=== PATIENT | male | born 1950 | race Caucasian/White ===

== ENCOUNTER 2019-07-05 05:37 | Outpatient (RCR) | payer OTHER, SELFPAY | END 2019-07-14 00:01 | LOC: ONCMED 05:37 | PROVIDERS: Visit Provider Nurse Practitioner | DX: D46.1 Refractory anemia with ring sideroblasts (principal); E83.111 Hemochromatosis due to repeated red blood cell transfusions; I25.10 Atherosclerotic heart disease of native coronary artery without angina pectoris; E78.5 Hyperlipidemia, unspecified; J44.9 Chronic obstructive pulmonary disease, unspecified; F17.210 Nicotine dependence, cigarettes, uncomplicated; G61.81 Chronic inflammatory demyelinating polyneuritis; Z79.82 Long term (current) use of aspirin; Z79.899 Other long term (current) drug therapy; Z79.891 Long term (current) use of opiate analgesic; Z95.5 Presence of coronary angioplasty implant and graft | CPT/HCPCS: 36415; 36430; 80053; 82728; 83540; 83550; 85025 ×2; 86850; 86900; 86901; 86920; 96374; 99214; J1940; J7050; P9040 ×2 ==

== ENCOUNTER 2019-08-02 05:39 | Outpatient (RCR) | payer OTHER, SELFPAY | END 2019-08-14 00:01 | LOC: ONCMED 05:39 | PROVIDERS: Visit Provider Nurse Practitioner | DX: D46.1 Refractory anemia with ring sideroblasts (principal); E83.111 Hemochromatosis due to repeated red blood cell transfusions; I25.10 Atherosclerotic heart disease of native coronary artery without angina pectoris; E78.5 Hyperlipidemia, unspecified; J44.9 Chronic obstructive pulmonary disease, unspecified; G61.81 Chronic inflammatory demyelinating polyneuritis; Z95.5 Presence of coronary angioplasty implant and graft; Z95.1 Presence of aortocoronary bypass graft | CPT/HCPCS: 80053; 82728; 83540; 83550; 85025 ×2; 99214 ==

== ENCOUNTER 2019-08-30 06:38 | Outpatient (RCR) | payer OTHER, SELFPAY ==
[2019-08-30 10:07] LABS: Basophils % 0.8 %; Eosinophils # 0.1 10^3/uL (0.0-0.8); Eosinophils % 3.8 %; Hematocrit 28.2 % (42.0-52.0); Hemoglobin 9.4 g/dL (11.7-16.6); Lymphocytes # 0.9 10^3/uL (0.8-4.8); Lymphocytes % 36.3 %; Mean Corpuscular HGB Conc 33.3 g/dL (30.0-36.0); Mean Corpuscular Hemoglobin 36.2 pg (28.0-34.0); Mean Corpuscular Volume 108.5 fL (80-94); Mean Platelet Volume 12.5 fL (7.4-10.4); Monocytes # 0.2 10^3/uL (0.2-0.9); Monocytes % 6.8 %; Neutrophils # 1.2 10^3/uL (1.8-7.7); Neutrophils % 51.9 %; Nucleated Red Blood Cells % 0 %; Platelet Count 199 10^3/cmm (130-400); White Blood Count 2.4 10^3/uL (4.0-10.0)
[2019-08-30 10:18] LABS: Alanine Aminotransferase 22 U/L (0-41); Albumin Level 4.7 g/dL (3.5-5.2); Alkaline Phosphatase 79 IU/L (40-130); Anion Gap 12.9 (5-19); Aspartate Amino Transferase 40 U/L (0-40); Blood Urea Nitrogen 10 mg/dL (8-23); Calcium 9.5 mg/Dl (8.8-10.2); Carbon Dioxide 28 mmol/L (22-29); Chloride 100 mmol/L (98-107); Globulin 2.3 g/dL (1.3-4.6); Glomerular Filtration Rate 133.6 mL/min (90-130); Glucose 233 mg/dL (74-106); Lactate Dehydrogenase 135 U/L (135-225); Potassium 3.9 mmol/L (3.5-5.1); Sodium 137 mmol/L (136-145); Total Bilirubin 1.7 mg/dL (0.15-1.2)
[2019-08-30 10:37] LABS: Ferritin 1976 ng/mL (30-400)
[2019-08-30 11:09] LABS: Add RBC Morph Yes; Slide Review Slide Review Perform
[2019-08-30 11:10] LABS: Anisocytosis 2+; Microcytosis 1+; Ovalocytes 1+; Poikilocytosis 1+; Tear Drop Cells 1+
[2019-08-30 11:11] LABS: RBC Morph Comp Yes
--- NOTE | 2019-09-02 19:47 | ONC FU_ITS ---
Dr. Coffey Patient Follow-Up Note Patient: Jose Chamberlain Unit #: [id number]: 1950 Dicatated By: Jordan Coffey M.D.Date of Visit:Aug 30, 2019 Onc Med Follow-up/Prog Note Chief Complaint: Myelodysplastic syndrome. History of Present Illness: This is a 69 year-old man with myelodysplastic syndrome (MDS with ring sideroblasts), low risk. He also has hemochromatosis. In 2016 he was diagnosed with hemochromatosis based on elevated iron and ferritin levels. According to the patient's daughter, he was phlebotomized twice for it. I had seen him initially on 02/06/2018 after he had been found to be anemic. The available records included a CBC from 01/11/2018 showing low hemoglobin at 8.3 g with white blood cell count 3300 and platelet count 322,000. Renal function at that time was normal with BUN 9 and creatinine 0.84 mg/dL. The liver enzymes also were normal. The total bilirubin was slightly elevated at 1.6 mg/dL. The serum iron was elevated at 198 mcg/dL with transferrin saturation 97.2%. Ferritin was elevated at 1301.0 ng/mL. His laboratory evaluation in January 2018 included CBC showing hemoglobin 10.5 g with white blood cell count 3000 and platelet count 229,000. The red cell indices were macrocytic. The sedimentation rate was normal at 10 mm/hour. Comprehensive metabolic profile was unremarkable except for mildly elevated total bilirubin at 1.4 mg/dL. LDH was normal at 148 U/L. B12 level was normal at 541 pg/mL. His serum iron was elevated at 219 mcg/dL with transferrin saturation 89.6%. The ferritin was elevated at 1359 ng/mL. 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 At the time, I felt that he probably would require bone marrow aspiration/biopsy, but he had failed to return for follow-up. His repeat laboratory studies done through the [facility] on 08/14/2018 included CBC showing hemoglobin down to 7.6 g with hematocrit 23%. The red cell indices were macrocytic with MCV 113 and MCH 36. The white blood cell count was 3300 and the platelet count was 278,000. The uncorrected reticulocyte count was 2.5%. LDH was normal 158 U/L. A haptoglobin level was requested, but the result was not included. TSH was slightly low at 0.31 mIU/mL. Serum iron studies show transferrin saturation 86.1%. PSA level was 1.00 ng/mL. CEA level was 1.95 ng/mL. I had seen him for a follow-up visit on 08/24/2018, and at that point I did recommend bone marrow aspiration/biopsy. I also began empiric steroid therapy for muscle pain. He underwent bone marrow aspiration/biopsy on 09/01/2018. The marrow was hypercellular, estimated at 100%. 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 There was profound erythroid hyperplasia with associated dyserythropoiesis. The bone marrow differential included 2% blasts. CD34 positive blasts and CD 117 positive precursors were slightly increased estimated at 3% and 5% of the cellularity respectively. Iron stores were only 1+, but numerous ring sideroblasts were present. The FISH panel for MDS was unrevealing, and the standard chromosome analysis was normal. His further evaluation included an erythropoietin level, which was relatively high 143 mIU/mL. His other medical illnesses include coronary artery disease, dyslipidemia, and COPD. 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 He has a history of smoking for more than 40 years, in the range of 1 to 1 1/2 packs of cigarettes daily. INTERIM HISTORY: He was seen for a follow-up visit on 09/18/2018. He had noticed some improvement in his muscle pain with the prednisone, but it was not dramatic. At that point I had requested further evaluation with a [facility] next generation sequencing study. 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 He also was found to be MSI stable with low mutation burden. He was seen for a follow-up visit on 12/20/2018. At that time his hemoglobin was 8.8 g with white blood cell count 2800 and platelet count 276,000. He continued to complain of severe fatigue. With the declining blood counts and performance status, I had recommended a trial of therapy with Revlimid at 10 mg daily on a 21/ day schedule. Within one week of starting the medication, his son called reported that he had developed severe weakness, shortness of breath, and lower extremity edema. There was a precipitous drop in his hemoglobin, to 5.5 g with white blood cell count stable at 3300 and platelet count stable at 210,000. He had no symptoms to suggest acute blood loss. Chest x-ray showed COPD and possible edema, but there was no acute infiltrate. He was given IV Lasix and he began outpatient transfusion of PRBC. His shortness of breath, though, worsened, and he was placed in the hospital on overnight observation to complete the transfusion. He was able to be discharged the following day. He received a total of 3 units of PRBC. His Revlimid was put on hold. I had seen him for a follow-up visit on 01/19/2019. He had improved significantly following the transfusions, though that time he did have symptoms of COPD exacerbation, for which he was given antibiotic coverage with Levaquin. During subsequent follow-up he has remained transfusion dependent, requiring transfusion pretty regularly on a monthly basis. He was most recently transfused on 06/21/2019 after his hemoglobin had dropped back down to 6.8 g. In the July 2019 he began treatment with Jadenu for iron overload, as his ferritin level had increased to over 2000 ng/mL. He is seen for a follow-up visit. He has been feeling okay. He does have limited activity tolerance, but he is still able to do light work. ECOG score is 1. Appetite is not good. He says that he does eat, but his weight is down 5 pounds. He does not have fever or night sweats. He has shortness of breath with activity. He has cough which is sometimes clear and sometimes productive of greenish sputum. He does not complain of chest pain. He has no GI or complaints. He has some component of generalized pain, but he hurts more significantly in his right shoulder and in both legs. He has no focal neurologic symptoms. Medications: Aleve 1 Capsule (of 220 mg) Oral PRN, Aspirin 1 Tablet (of 81 mg) Oral daily, Coreg 0.5 Tablet (of 6.25 mg) Oral daily PRN, Gabapentin 2 Capsule (of 300 mg) Oral at bedtime, HYDROcodone-Acetaminophen 1 - 2 Tablet (of 5-325 mg) Oral q 4 hours, Lasix 1 Tablet (of 20 mg) Oral b.i.d. PRN, Proventil HFA 1 puff(s) (of 108 (90 base) mcg/act) Aerosol, solution Inhalation PRN, raNITIdine HCl 1 Tablet (of 150 mg) Oral b.i.d. PRN, Simvastatin 0.5 Tablet (of 40 mg) Oral daily Allergies: No Known Allergies. Review of Systems: Constitutional - His energy is okay. 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 He does not really have an appetite, but he eats. He also drinks Ensure. His weight is down about 5 pounds. No fever, chills, hot flashes, or night sweats. ECOG score is 1, ENMT - No sinus congestion/drainage. No mouth sores. No sore throat or difficulty swallowing, Hematologic/Lymphatic - No abnormal bruising or bleeding, Respiratory - He has shortness of breath with activity. He has a cough that produces green or clear phlegm. He continues to smoke. No pleuritic pain or hemoptysis, Cardiovascular - No angina pain. No palpitations, Gastrointestinal - No nausea or vomiting. No heartburn or acid reflux. No diarrhea or constipation. No blood in the stool or black stools, Genitourinary (M) - No dysuria or hematuria. No urinary frequency. No urgency or incontinence, Musculoskeletal - He has generalized pain in his muscles and joints, mainly his right shoulder, Integumentary - No skin complications, Neurologic - No headache. He has occasional dizziness. No numbness/paresthesias or other focal neurologic symptoms, Psychiatric - No anxiety or depression. No insomnia. Vital Signs: Performed on Aug 30, 2019 10:45 Height - 68.00 in Weight - 152.6 lbs (HIGH) BSA - 1.82 sq.m BMI - 23.20 Temperature - 97.6 F (LOW) Pulse - 62 /min Respiration - 24 /min BP - 115/53 mm(hg) O2 Sat - 99 % Pain - 5 Physical Examination: Constitutional - He appears somewhat weak generally, Eyes - Sclerae nonicteric. Conjunctivae clear, ENMT - No lesions noted in the oral cavity, Hematologic/Lymphatic - No cervical, clavicular, or axillary adenopathy, Respiratory - Lungs show diminished in air movement with mild expiratory rhonchi bilaterally, Cardiovascular - Heart rhythm is regular. There is a II/ systolic murmur. There is no gallop or rub noted, Abdomen - Soft. Liver and spleen are not enlarged. There is no abdominal mass or ascites noted and there is no inguinal adenopathy, Extremities - No edema, Neurologic - No focal neurologic deficits noted. Lab/Imaging: Test performed on Aug 30, 2019 09:45 Ferritin 1976 ng/mL Glucose 233 mg/dL LDH, Total 135 IU/L BUN 10 mg/dL Creatinine 0.6 mg/dL Cr Clearance (Est) 113.76 mL/min Sodium 137 mmol/L Potassium 3.9 mmol/L Chloride 100 mmol/L CO2 28 mmol/L Calcium 9.5 mg/dL Protein, Total 7.0 g/dL Albumin 4.7 g/dL Bilirubin, Total 1.7 mg/dL Alkaline Phosphatase 79 IU/L AST (SGOT) 40 IU/L ALT (SGPT) 22 IU/L WBC 2.4 10^9/L RBC 2.60 10^12/L HGB 9.4 g/dL HCT 28.2 % MCV 108.5 fl MCH 36.2 pg MCHC 33.3 g/dL RDW 24.0 % Platelet Count 199 10^9/L MPV 12.5 fL Neutrophils (Gran) 1.2 10^9/L Lymphocytes 0.9 10^9/L Monocytes 0.2 10^9/L Eosinophils 0.1 10^9/L Basophils 0.0 10^9/L Manual Lymphocytes 36.3 % Manual Monocytes 6.8 % Manual Eosinophils 3.8 % Manual Basophils 0.8 % NRBCs 0.0 /100 WBC Impression: 1. Patient with moderately severe, macrocytic anemia and mild neutropenia. Bone marrow aspirate/biopsy on 09/01/2018 showed findings consistent with myelodysplastic syndrome, specifically MDS with ring sideroblasts. His IPSS-R calculated to 3.0, low risk. His heme next generation sequencing study showed presence of TET2 and ASXL1 mutations, both of which may be associated with high response rates to hypomethylating agents. 2. He also had significantly elevated transferrin saturation and ferritin levels. 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 His other medical illnesses include: 3. Coronary artery disease with previous angioplasty/stent placement. 4. Dyslipidemia. 5. COPD. 6. His records indicate a history of chronic inflammatory demyelinating polyneuropathy. In December 2018 he began a trial of therapy with Revlimid at 10 mg daily on a 21/ day schedule. Within one week he had a precipitous drop in his hemoglobin to 5.5 g. Associated with that, he had developed lower extremity edema and he most likely had a component of congestive heart failure. He improved following transfusion of 3 units of PRBC, though during subsequent follow-up he continued to have somewhat marginal performance status. He has remained transfusion dependent, requiring transfusion approximately on a monthly basis. Associated with that, there was a significant increase in his serum ferritin level. As of July 2019 it had increased to over 2000 ng/mL, and at that point he did start treatment with Jadenu. Thus far he has tolerated without adverse effects, though it was started at a reduced dosage. Plan: I will continue to monitor blood counts every 2 weeks, and he can be transfused again as needed. He will continue Jadenu, but the dosage will now be escalated. He will continue gabapentin for the pain, as he has had poor tolerance for even a low dosage of hydrocodone/APAP. I will have start prednisone 10 mg daily. I also will look into the possibility of a trial of therapy with luspaterecept, which recently has shown benefit in the treatment of transfusion dependent MDS with ring sideroblasts. Signed By: Jordan Coffey M.D. <<Signature on File>>
== END 2019-09-14 23:59 | disposition home or self-care (01) ==
LOC: ONCMED 06:38
PROVIDERS: Visit Provider Internal Medicine Medical Oncology
DX: E83.111 Hemochromatosis due to repeated red blood cell transfusions (principal); D46.1 Refractory anemia with ring sideroblasts; Z79.899 Other long term (current) drug therapy
CPT/HCPCS: 36415; 80053; 82728; 83615; 85025; 99214

== ENCOUNTER → 2019-09-13 11:14 | Outpatient (BNVA) | payer OTHER, SELFPAY | PROVIDERS: Visit Provider Family Medicine | DX: D64.9 Anemia, unspecified (principal) | CPT/HCPCS: 85025 ==

== ENCOUNTER 2019-09-27 05:59 | Outpatient (RCR) | payer OTHER, SELFPAY ==
[2019-09-27 10:25] LABS: Basophils % 0.9 %; Eosinophils # 0.1 10^3/uL (0.0-0.8); Eosinophils % 2.6 %; Hematocrit 28.4 % (42.0-52.0); Hemoglobin 9.4 g/dL (11.7-16.6); Lymphocytes # 0.7 10^3/uL (0.8-4.8); Lymphocytes % 30.8 %; Mean Corpuscular HGB Conc 33.1 g/dL (30.0-36.0); Mean Corpuscular Volume 108.8 fL (80-94); Mean Platelet Volume 12.6 fL (7.4-10.4); Monocytes # 0.2 10^3/uL (0.2-0.9); Monocytes % 7.5 %; Neutrophils # 1.3 10^3/uL (1.8-7.7); Neutrophils % 58.2 %; Nucleated Red Blood Cells % 0 %; Platelet Count 183 10^3/cmm (130-400); Red Blood Count 2.61 10^6/uL (4.1-5.3); Red Cell Distribution Width 24.6 % (12.1-15.1); White Blood Count 2.3 10^3/uL (4.0-10.0)
[2019-09-27 10:43] LABS: Alanine Aminotransferase 13 U/L (0-41); Albumin Level 4.1 g/dL (3.5-5.2); Alkaline Phosphatase 68 IU/L (40-130); Anion Gap 14.7 (5-19); Blood Urea Nitrogen 9 mg/dL (8-23); Calcium 9.2 mg/dL (8.5-10.5); Carbon Dioxide 26 mmol/L (22-29); Chloride 102 mmol/L (98-107); Globulin 2.8 g/dL (1.3-4.6); Glomerular Filtration Rate 95.8 mL/min (90-130); Glucose 169 mg/dL (65-115); Iron 230 ug/dL (59-158); Potassium 4.7 mmol/L (3.5-5.1); Sodium 138 mmol/L (136-145); Total Bilirubin 1.9 mg/dL (0.15-1.2); Total Protein 6.9 g/dL (6.6-8.7)
[2019-09-27 11:00] LABS: Aspartate Amino Transferase 29 U/L (0-40); Ferritin 1224 ng/mL (30-400); Lactate Dehydrogenase 199 U/L (135-225); Percent Saturation 1769.2 % (20-50); Total Iron Binding Capacity 13 mcg/dl
[2019-09-27 11:52] LABS: Vitamin B12 578 pg/mL (232-1245)
--- NOTE | 2019-09-30 20:47 | ONC FU_ITS ---
[facility] Patient Note Patient: Jose Chamberlain Unit #: [id number]: 1950 Dictated By: Mayra OrellanaDate of Visit: Sep 27, 2019 Onc MED Follow-Up/Prog Note Chief Complaint: Myelodysplastic syndrome. History of Present Illness: Mr Chamberlain is a 69 year-old man with myelodysplastic syndrome (MDS with ring sideroblasts), low risk. He also has hemochromatosis. In 2016 he was diagnosed with hemochromatosis based on elevated iron and ferritin levels. According to the patient's daughter, he was phlebotomized twice for it. Dr Coffey had seen him initially on 02/06/2018 after he had been found to be anemic. The available records included a CBC from 01/11/2018 showing low hemoglobin at 8.3 g with white blood cell count 3300 and platelet count 322,000. Renal function at that time was normal with BUN 9 and creatinine 0.84 mg/dL. The liver enzymes also were normal. The total bilirubin was slightly elevated at 1.6 mg/dL. The serum iron was elevated at 198 mcg/dL with transferrin saturation 97.2%. Ferritin was elevated at 1301.0 ng/mL. His laboratory evaluation in January 2018 included CBC showing hemoglobin 10.5 g with white blood cell count 3000 and platelet count 229,000. The red cell indices were macrocytic. The sedimentation rate was normal at 10 mm/hour. Comprehensive metabolic profile was unremarkable except for mildly elevated total bilirubin at 1.4 mg/dL. LDH was normal at 148 U/L. B12 level was normal at 541 pg/mL. His serum iron was elevated at 219 mcg/dL with transferrin saturation 89.6%. The ferritin was elevated at 1359 ng/mL. 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 At the time, Dr Coffey recommended bone marrow aspiration/biopsy, but he had failed to return for follow-up. His repeat laboratory studies done through the [facility] on 08/14/2018 included CBC showing hemoglobin down to 7.6 g with hematocrit 23%. The red cell indices were macrocytic with MCV 113 and MCH 36. The white blood cell count was 3300 and the platelet count was 278,000. The uncorrected reticulocyte count was 2.5%. LDH was normal 158 U/L. A haptoglobin level was requested, but the result was not included. TSH was slightly low at 0.31 mIU/mL. Serum iron studies show transferrin saturation 86.1%. PSA level was 1.00 ng/mL. CEA level was 1.95 ng/mL. Dr Coffey had seen him for a follow-up visit on 08/24/2018, and at that point again recommended bone marrow aspiration/biopsy. He also had Mr Wedge begin empiric steroid therapy for muscle pain. He underwent bone marrow aspiration/biopsy on 09/01/2018. The marrow was hypercellular, estimated at 100%. 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 There was profound erythroid hyperplasia with associated dyserythropoiesis. The bone marrow differential included 2% blasts. CD34 positive blasts and CD 117 positive precursors were slightly increased estimated at 3% and 5% of the cellularity respectively. Iron stores were only 1+, but numerous ring sideroblasts were present. The FISH panel for MDS was unrevealing, and the standard chromosome analysis was normal. His further evaluation included an erythropoietin level, which was relatively high 143 mIU/mL. His other medical illnesses include coronary artery disease, dyslipidemia, and COPD. 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 He has a history of smoking for more than 40 years, in the range of 1 to 1 1/2 packs of cigarettes daily. INTERIM HISTORY: He was seen for a follow-up visit on 09/18/2018. He had noticed some improvement in his muscle pain with the prednisone, but it was not dramatic. At that point, Dr Coffey had requested further evaluation with a [facility] next generation sequencing study. 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 He also was found to be MSI stable with low mutation burden. He was seen for a follow-up visit on 12/20/2018. At that time his hemoglobin was 8.8 g with white blood cell count 2800 and platelet count 276,000. He continued to complain of severe fatigue. With the declining blood counts and performance status, Dr Coffey recommended a trial of therapy with Revlimid at 10 mg daily on a 21/ day schedule. Within one week of starting the medication, his son called reported that he had developed severe weakness, shortness of breath, and lower extremity edema. There was a precipitous drop in his hemoglobin, to 5.5 g with white blood cell count stable at 3300 and platelet count stable at 210,000. He had no symptoms to suggest acute blood loss. Chest x-ray showed COPD and possible edema, but there was no acute infiltrate. He was given IV Lasix and he began outpatient transfusion of PRBC. His shortness of breath, though, worsened, and he was placed in the hospital on overnight observation to complete the transfusion. He was able to be discharged the following day. He received a total of 3 units of PRBC. His Revlimid was put on hold. Dr Coffey had seen him for a follow-up visit on 01/19/2019. He had improved significantly following the transfusions, though that time he did have symptoms of COPD exacerbation, for which he was given antibiotic coverage with Levaquin. During subsequent follow-up he has remained transfusion dependent, requiring transfusion again on 03/15/2019 and on 04/19/2019. He has otherwise been stable clinically. Mr. Chamberlain is here today for follow-up. His last transfusion service was on 06/21/2019. His hemoglobin at that time was 6.8. He is here today for followup. He has no new concerns today. He is active around the house some and tolerates this well. He states he has a good appetite. He denies any new shortness of breath or orthopnea. He denies chest pain or palpitations. He states his bowels and bladder are normal for him. He continues on the deferasirox at 5 tablets daily (900 mg) daily. He states he is tolerating this well. He states his pain is stable and he has had no new problems. His ECOG is 1. Past Medical History: Anemia Chronic inflammatory demyelinating polyneuritis Coronary artery disease Dyslipidemia Hemochromatosis Past Surgical History: Bilateral inguinal hernia repair Coronary angioplasty/stent placement Allergies: No Known Allergies. Medications: Aleve 1 Capsule (of 220 mg) Oral PRN Aspirin 1 Tablet (of 81 mg) Oral daily Coreg 0.5 Tablet (of 6.25 mg) Oral daily PRN Gabapentin 2 Capsule (of 300 mg) Oral at bedtime HYDROcodone-Acetaminophen 1 - 2 Tablet (of 5-325 mg) Oral q 4 hours Lasix 1 Tablet (of 20 mg) Oral b.i.d. PRN Proventil HFA 1 puff(s) (of 108 (90 base) mcg/act) Aerosol, solution Inhalation PRN raNITIdine HCl 1 Tablet (of 150 mg) Oral b.i.d. PRN Simvastatin 0.5 Tablet (of 40 mg) Oral daily Family History: Mr. Chamberlain's mother at age 75: heart disease. Mr. Chamberlain's father at age 68: emphysema. Mr. Chamberlain has 2 brothers: 2 . Mr. Chamberlain's first brother's heart disease. Another brother's heart disease. Father of emphysema at age 68. Mother of heart disease at age 75. Two brothers also of heart attacks, one at age 69 and the other at age 50. He had no other siblings. Social History: Mr. Chamberlain is single and he is retired. He is a daily smoker who has smoked 1.5 packs/day for 40 years. He has no history of drinking. He has a history of smoking for 40+ years, at least a pack and half of cigarettes daily. He does not drink alcohol. Review Of Symptoms: Constitutional Denies fevers, chills, night sweats, excessive fatigue or weight loss. Allergic/Immunologic No reactions. Eyes Denies significant visual changes. No diplopia. No amaurosis. ENMT Denies changes in hearing, sore throat, mouth sores, difficulty or changes in swallowing ability, and/or sinus drainage. Endocrine No diabetes, thyroid disease or hormone replacement. Denies hot flashes or night sweats. Hematologic/Lymphatic Denies easy bruising or bleeding. The patient denies any tender or palpable lymph nodes. Respiratory Denies dyspnea on exertion, chest pain, cough or hemoptysis. Denies orthopnea. Cardiovascular Denies anginal chest pain, palpitations or orthopnea. Gastrointestinal Denies nausea, vomiting, diarrhea, GI bleeding, or constipation. Denies change in bowel habits and/or stool color, no heartburn or early satiety. Genitourinary (M) Denies hematuria, dysuria, increased frequency, urgency, hesitancy or incontinence. Musculoskeletal Denies joint pain, swelling or redness. No decreased range of motion. Integumentary Denies chronic rashes, inflammation, ulcerations or skin changes. Neurologic Denies headache, blurred vision, and no areas of focal weakness or numbness. Normal gait. No sensory problems. Psychiatric Denies insomnia, depression, delphine or mood swings. Vital Signs: Performed on Sep 27, 2019 10:57 Height - 68.00 in Weight - 151.8 lbs (LOW) BSA - 1.82 sq.m BMI - 23.08 Temperature - 97.7 F (LOW) Pulse - 59 /min (LOW) Respiration - 14 /min BP - 97/53 mm(hg) O2 Sat - 97 % Pain - 0 Fatigue - 8,1 - No physically strenuous activity, but ambulatory and able to carry out light or sedentary work (e.g. office work, light house work). (ECOG) Physical Examination: Constitutional Alert, oriented, no acute distress. Skin pink, warm and dry. Head Normocephalic; atraumatic. Eyes Conjunctivae and sclerae are clear and without icterus. Pupils are reactive and equal. Neck Supple without masses or thyromegaly. No jugular venous distension. Hematologic/Lymphatic No petechiae or purpura. No tender or palpable lymph nodes in the cervical or supraclavicular areas. Respiratory Lungs are clear to auscultation without rhonchi or wheezing. Cardiovascular Regular rate and rhythm of heart without murmurs,clicks, gallops or rubs. Abdomen Non-tender, non-distended, no masses, ascites. Good bowel sounds noted in all quads. No guarding or rebound tenderness. No pulsatile masses. Back/Spine Non-tender to palpation. Extremities No visible deformities, no cyanosis, clubbing or edema. Musculoskeletal No tenderness or swelling, normal range of motion without obvious weakness. Integumentary No rashes or lesions. Neurologic No sensory or motor deficits, normal cerebellar function, normal gait. Psychiatric Alert and oriented times three. Coherent speech. Verbalizes understanding of our discussions today. Laboratory:Test performed on Sep 27, 2019 10:12 Ferritin 1224 ng/mL Iron 230 ug/dL LDH (Total) 199 U/L Sodium 138 mmol/L Potassium 4.7 mmol/L Chloride 102 mmol/L CO2 26 mmol/L Anion Gap 14.7 BUN 9 mg/dL Creatinine 0.8 mg/dL Cr Clearance (Est) 84.88 mL/min eGFR 95.8 mL/min Glucose 169 mg/dL Calcium 9.2 mg/dL Protein, Total 6.9 g/dL Albumin 4.1 g/dL Globulin 2.8 g/dL Bilirubin, Total 1.9 mg/dL ALT (SGPT) 13 U/L AST (SGOT) 29 U/L Alkaline Phosphatase 68 IU/L WBC 2.3 10 3/uL RBC 2.61 10 6/uL HGB 9.4 g/dL HCT 28.4 % MCV 108.8 fL MCH 36.0 pg MCHC 33.1 g/dL RDW 24.6 % Platelet Count 183 10 3/cmm MPV 12.6 fL Neutrophils 1.3 10 3/uL Lymphocytes 0.7 10 3/uL Monocytes 0.2 10 3/uL Eosinophils 0.1 10 3/uL Basophils 0.0 10 3/uL Neutrophil % 58.2 % Lymphocyte % 30.8 % Monocyte % 7.5 % Eosinophil % 2.6 % Basophils % 0.9 % Test performed on Sep 27, 2019 10:00 Vitamin B12 578 pg/mL Test performed on Jun 21, 2019 10:00 Irradiated Packed Cells TRANSFUSED PRODUCT: IRRADIATED LEUKOREDUCED RBC COUNT: 2 Type & Screen BLD TYPE O NEGATIVE AB SCREEN GEL NEGATIVE Impression: 1. Patient with moderately severe, macrocytic anemia and mild neutropenia. Bone marrow aspirate/biopsy on 09/01/2018 showed findings consistent with myelodysplastic syndrome, specifically MDS with ring sideroblasts. His IPSS-R calculated to 3.0, low risk. His heme next generation sequencing study showed presence of TET2 and ASXL1 mutations, both of which may be associated with high response rates to hypomethylating agents. 2. He also had significantly elevated transferrin saturation and ferritin levels. 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 His other medical illnesses include: 3. Coronary artery disease with previous angioplasty/stent placement. 4. Dyslipidemia. 5. COPD. 6. His records indicate a history of chronic inflammatory demyelinating polyneuropathy. In December 2018 he began a trial of therapy with Revlimid at 10 mg daily on a 21/ day schedule. Within one week he had a precipitous drop in his hemoglobin to 5.5 g. Associated with that, he had developed lower extremity edema and he most likely had a component of congestive heart failure. He improved following transfusion of 3 units of PRBC, though during subsequent follow-up he continued to have somewhat marginal performance status. He has remained transfusion dependent, requiring transfusion approximately on a monthly basis. Associated with that, there was a significant increase in his serum ferritin level. As of July 2019 it had increased to over 2000 ng/mL, and at that point he did start treatment with Jadenu. Thus far he has tolerated without adverse effects, though it was started at a reduced dosage. Plan: 1. He has been approved for a trial of therapy with luspaterecept, which recently has shown benefit in the treatment of transfusion dependent MDS with ring sideroblasts. 2. His medication has been ordered and we are waiting for it to arrive. Once it is received, Mr Chamberlain will return for a followup visit for instructions and education on the luspaterecept. 3. Labs from 09/26/2019 were reviewed in detail and discussed with Mr Chamberlain and his family and a copy was given to him. HGB = 9.4. wbc 2.3 AND PLATELETS = 183,000. 4. His last transfusion was on 06/21/2019. 5. We will arrange followup when he receives th luspaterecept. 6. Mr Chamberlain was instructed to call us in the interim if questions or problems arise. Signed By: Mayra Orellana-, [facility] Jordan Coffey MD <<Signature on File>>
== END 2019-10-13 23:59 | disposition home or self-care (01) ==
LOC: ONCMED 05:59
PROVIDERS: Absent Provider Internal Medicine Medical Oncology; Visit Provider Nurse Practitioner
DX: D46.1 Refractory anemia with ring sideroblasts (principal); E83.111 Hemochromatosis due to repeated red blood cell transfusions; I25.10 Atherosclerotic heart disease of native coronary artery without angina pectoris; E78.5 Hyperlipidemia, unspecified; J44.9 Chronic obstructive pulmonary disease, unspecified; F17.210 Nicotine dependence, cigarettes, uncomplicated; G61.81 Chronic inflammatory demyelinating polyneuritis; Z79.899 Other long term (current) drug therapy; Z95.5 Presence of coronary angioplasty implant and graft; Z79.82 Long term (current) use of aspirin; Z79.891 Long term (current) use of opiate analgesic
CPT/HCPCS: 36415; 80053; 82607; 82728; 83540; 83550; 83615; 85025; 99214

== ENCOUNTER 2019-11-13 06:38 | Outpatient (RCR) | payer OTHER, SELFPAY ==
[2019-10-23 13:05] LABS: Basophils % 0.8 %; Eosinophils # 0.1 10^3/uL (0.0-0.8); Eosinophils % 2.8 %; Hematocrit 28.4 % (42.0-52.0); Hemoglobin 9.2 g/dL (11.7-16.6); Lymphocytes # 0.7 10^3/uL (0.8-4.8); Lymphocytes % 29.4 %; Mean Corpuscular HGB Conc 32.4 g/dL (30.0-36.0); Mean Corpuscular Hemoglobin 33.9 pg (28.0-34.0); Mean Corpuscular Volume 104.8 fL (80-94); Mean Platelet Volume 11.7 fL (7.4-10.4); Monocytes # 0.3 10^3/uL (0.2-0.9); Monocytes % 10.7 %; Neutrophils # 1.4 10^3/uL (1.8-7.7); Neutrophils % 55.9 %; Nucleated Red Blood Cells % 0 %; Platelet Count 193 10^3/cmm (130-400); Red Blood Count 2.71 10^6/uL (4.1-5.3); Red Cell Distribution Width 22.6 % (12.1-15.1); White Blood Count 2.5 10^3/uL (4.0-10.0)
[2019-10-23 13:11] LABS: Alanine Aminotransferase 12 U/L (0-41); Albumin Level 4.3 g/dL (3.5-5.2); Alkaline Phosphatase 78 IU/L (40-130); Anion Gap 13.2 (5-19); Aspartate Amino Transferase 21 U/L (0-40); Blood Urea Nitrogen 12 mg/dL (8-23); Calcium 9.3 mg/dL (8.5-10.5); Carbon Dioxide 26 mmol/L (22-29); Chloride 101 mmol/L (98-107); Globulin 2.9 g/dL (1.3-4.6); Glomerular Filtration Rate 95.8 mL/min (90-130); Glucose 152 mg/dL (65-115); Osmolality Calculated 281 mOsm/kg (285-295); Potassium 4.2 mmol/L (3.5-5.1); Sodium 136 mmol/L (136-145); Total Bilirubin 2.3 mg/dL (0.15-1.2); Total Protein 7.2 g/dL (6.6-8.7)
[2019-10-23] MEDS: luspatercept-aamt 75 mg 69 MG SUBCUT (15:42)
--- NOTE | 2019-10-27 20:21 | ONC FU_ITS ---
[facility] Patient Note Patient: Jose Chamberlain Unit #: [id number]: 1950 Dictated By: Mayra OrellanaDate of Visit: Oct 23, 2019 Onc MED Follow-Up/Prog Note Chief Complaint: Myelodysplastic syndrome. History of Present Illness: Mr Chamberlain is a 69 year-old man with myelodysplastic syndrome (MDS with ring sideroblasts), low risk. He also has hemochromatosis. In 2016 he was diagnosed with hemochromatosis based on elevated iron and ferritin levels. According to the patient's daughter, he was phlebotomized twice for it. Dr Coffey had seen him initially on 02/06/2018 after he had been found to be anemic. The available records included a CBC from 01/11/2018 showing low hemoglobin at 8.3 g with white blood cell count 3300 and platelet count 322,000. Renal function at that time was normal with BUN 9 and creatinine 0.84 mg/dL. The liver enzymes also were normal. The total bilirubin was slightly elevated at 1.6 mg/dL. The serum iron was elevated at 198 mcg/dL with transferrin saturation 97.2%. Ferritin was elevated at 1301.0 ng/mL. His laboratory evaluation in January 2018 included CBC showing hemoglobin 10.5 g with white blood cell count 3000 and platelet count 229,000. The red cell indices were macrocytic. The sedimentation rate was normal at 10 mm/hour. Comprehensive metabolic profile was unremarkable except for mildly elevated total bilirubin at 1.4 mg/dL. LDH was normal at 148 U/L. B12 level was normal at 541 pg/mL. His serum iron was elevated at 219 mcg/dL with transferrin saturation 89.6%. The ferritin was elevated at 1359 ng/mL. 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 At the time, Dr Coffey recommended bone marrow aspiration/biopsy, but he had failed to return for follow-up. His repeat laboratory studies done through the [place] on 08/14/2018 included CBC showing hemoglobin down to 7.6 g with hematocrit 23%. The red cell indices were macrocytic with MCV 113 and MCH 36. The white blood cell count was 3300 and the platelet count was 278,000. The uncorrected reticulocyte count was 2.5%. LDH was normal 158 U/L. A haptoglobin level was requested, but the result was not included. TSH was slightly low at 0.31 mIU/mL. Serum iron studies show transferrin saturation 86.1%. PSA level was 1.00 ng/mL. CEA level was 1.95 ng/mL. Dr Coffey had seen him for a follow-up visit on 08/24/2018, and at that point again recommended bone marrow aspiration/biopsy. He also had Mr Wedge begin empiric steroid therapy for muscle pain. He underwent bone marrow aspiration/biopsy on 09/01/2018. The marrow was hypercellular, estimated at 100%. 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 There was profound erythroid hyperplasia with associated dyserythropoiesis. The bone marrow differential included 2% blasts. CD34 positive blasts and CD 117 positive precursors were slightly increased estimated at 3% and 5% of the cellularity respectively. Iron stores were only 1+, but numerous ring sideroblasts were present. The FISH panel for MDS was unrevealing, and the standard chromosome analysis was normal. His further evaluation included an erythropoietin level, which was relatively high 143 mIU/mL. His other medical illnesses include coronary artery disease, dyslipidemia, and COPD. 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 He has a history of smoking for more than 40 years, in the range of 1 to 1 1/2 packs of cigarettes daily. INTERIM HISTORY: He was seen for a follow-up visit on 09/18/2018. He had noticed some improvement in his muscle pain with the prednisone, but it was not dramatic. At that point, Dr Coffey had requested further evaluation with a [facility] next generation sequencing study. 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 He also was found to be MSI stable with low mutation burden. He was seen for a follow-up visit on 12/20/2018. At that time his hemoglobin was 8.8 g with white blood cell count 2800 and platelet count 276,000. He continued to complain of severe fatigue. With the declining blood counts and performance status, Dr Coffey recommended a trial of therapy with Revlimid at 10 mg daily on a 21/ day schedule. Within one week of starting the medication, his son called reported that he had developed severe weakness, shortness of breath, and lower extremity edema. There was a precipitous drop in his hemoglobin, to 5.5 g with white blood cell count stable at 3300 and platelet count stable at 210,000. He had no symptoms to suggest acute blood loss. Chest x-ray showed COPD and possible edema, but there was no acute infiltrate. He was given IV Lasix and he began outpatient transfusion of PRBC. His shortness of breath, though, worsened, and he was placed in the hospital on overnight observation to complete the transfusion. He was able to be discharged the following day. He received a total of 3 units of PRBC. His Revlimid was put on hold. Dr Coffey had seen him for a follow-up visit on 01/19/2019. He had improved significantly following the transfusions, though that time he did have symptoms of COPD exacerbation, for which he was given antibiotic coverage with Levaquin. During subsequent follow-up he has remained transfusion dependent, requiring transfusion again on 03/15/2019 and on 04/19/2019. He has otherwise been stable clinically. Mr. Chamberlain is here today for follow-up. His last transfusion service was on 06/21/2019. His hemoglobin at that time was 6.8. He is here today for initiation of luspatercept. He has no new concerns today. He is active around the house some and tolerates this well. He states he has a good appetite. He denies any new shortness of breath or orthopnea. He denies chest pain or palpitations. He states his bowels and bladder are normal for him. He continues on the deferasirox at 5 tablets daily (900 mg) daily. He states he is tolerating this well. He states his pain is stable and he has had no new problems. His ECOG is 1. Past Medical History: Anemia Chronic inflammatory demyelinating polyneuritis Coronary artery disease Dyslipidemia Hemochromatosis Past Surgical History: Bilateral inguinal hernia repair Coronary angioplasty/stent placement Allergies: No Known Allergies. Medications: Aleve 1 Capsule (of 220 mg) Oral PRN Aspirin 1 Tablet (of 81 mg) Oral daily Coreg 0.5 Tablet (of 6.25 mg) Oral daily PRN Gabapentin 2 Capsule (of 300 mg) Oral at bedtime HYDROcodone-Acetaminophen 1 - 2 Tablet (of 5-325 mg) Oral q 4 hours Lasix 1 Tablet (of 20 mg) Oral b.i.d. PRN Proventil HFA 1 puff(s) (of 108 (90 base) mcg/act) Aerosol, solution Inhalation PRN Simvastatin 0.5 Tablet (of 40 mg) Oral daily Family History: Mr. Chamberlain's mother at age 75: heart disease. Mr. Chamberlain's father at age 68: emphysema. Mr. Chamberlain has 2 brothers: 2 . Mr. Chamberlain's first brother's heart disease. Another brother's heart disease. Father of emphysema at age 68. Mother of heart disease at age 75. Two brothers also of heart attacks, one at age 69 and the other at age 50. He had no other siblings. Social History: Mr. Chamberlain is single and he is retired. He is a daily smoker who has smoked 1.5 packs/day for 40 years. He has no history of drinking. He has a history of smoking for 40+ years, at least a pack and half of cigarettes daily. He does not drink alcohol. Review Of Symptoms: Constitutional Denies fevers, chills, night sweats, excessive fatigue or weight loss. Allergic/Immunologic No reactions. Eyes Denies significant visual changes. No diplopia. No amaurosis. ENMT Denies changes in hearing, sore throat, mouth sores, difficulty or changes in swallowing ability, and/or sinus drainage. Endocrine No diabetes, thyroid disease or hormone replacement. Denies hot flashes or night sweats. Hematologic/Lymphatic Denies easy bruising or bleeding. The patient denies any tender or palpable lymph nodes. Respiratory Denies dyspnea on exertion, chest pain, cough or hemoptysis. Denies orthopnea. Cardiovascular Denies anginal chest pain, palpitations or orthopnea. Gastrointestinal Denies nausea, vomiting, diarrhea, GI bleeding, or constipation. Denies change in bowel habits and/or stool color, no heartburn or early satiety. Genitourinary (M) Denies hematuria, dysuria, increased frequency, urgency, hesitancy or incontinence. Musculoskeletal Denies joint pain, swelling or redness. No decreased range of motion. Integumentary Denies chronic rashes, inflammation, ulcerations or skin changes. Neurologic Denies headache, blurred vision, and no areas of focal weakness or numbness. Normal gait. No sensory problems. Psychiatric Denies insomnia, depression, delphine or mood swings. Vital Signs: Performed on Oct 23, 2019 14:40 Height - 68.00 in Weight - 153.2 lbs (HIGH) BSA - 1.82 sq.m BMI - 23.29 Temperature - 99.0 F (HIGH) Pulse - 80 /min Respiration - 22 /min BP - 104/54 mm(hg) O2 Sat - 97 % Pain - 0,1 - No physically strenuous activity, but ambulatory and able to carry out light or sedentary work (e.g. office work, light house work). (ECOG) Physical Examination: Constitutional Alert, oriented, no acute distress. Skin pink, warm and dry. Head Normocephalic; atraumatic. Eyes Conjunctivae and sclerae are clear and without icterus. Pupils are reactive and equal. Neck Supple without masses or thyromegaly. No jugular venous distension. Hematologic/Lymphatic No petechiae or purpura. No tender or palpable lymph nodes in the cervical or supraclavicular areas. Respiratory Lungs are clear to auscultation without rhonchi or wheezing. Cardiovascular Regular rate and rhythm of heart without murmurs,clicks, gallops or rubs. Abdomen Non-tender, non-distended, no masses, ascites. Good bowel sounds noted in all quads. No guarding or rebound tenderness. No pulsatile masses. Back/Spine Non-tender to palpation. Extremities No visible deformities, no cyanosis, clubbing or edema. Musculoskeletal No tenderness or swelling, normal range of motion without obvious weakness. Integumentary No rashes or lesions. Neurologic No sensory or motor deficits, normal cerebellar function, normal gait. Psychiatric Alert and oriented times three. Coherent speech. Verbalizes understanding of our discussions today. Laboratory:Test performed on Oct 23, 2019 12:35 Sodium 136 mmol/L Potassium 4.2 mmol/L Chloride 101 mmol/L CO2 26 mmol/L Anion Gap 13.2 BUN 12 mg/dL Creatinine 0.8 mg/dL Cr Clearance (Est) 85.66 mL/min eGFR 95.8 mL/min Glucose 152 mg/dL Calcium 9.3 mg/dL Protein, Total 7.2 g/dL Albumin 4.3 g/dL Globulin 2.9 g/dL Bilirubin, Total 2.3 mg/dL ALT (SGPT) 12 U/L AST (SGOT) 21 U/L Alkaline Phosphatase 78 IU/L WBC 2.5 10 3/uL RBC 2.71 10 6/uL HGB 9.2 g/dL HCT 28.4 % MCV 104.8 fL MCH 33.9 pg MCHC 32.4 g/dL RDW 22.6 % Platelet Count 193 10 3/cmm MPV 11.7 fL Neutrophils 1.4 10 3/uL Lymphocytes 0.7 10 3/uL Monocytes 0.3 10 3/uL Eosinophils 0.1 10 3/uL Basophils 0.0 10 3/uL Neutrophil % 55.9 % Lymphocyte % 29.4 % Monocyte % 10.7 % Eosinophil % 2.8 % Basophils % 0.8 % Test performed on Sep 27, 2019 10:12 Ferritin 1224 ng/mL Iron 230 ug/dL LDH (Total) 199 U/L Test performed on Sep 27, 2019 10:00 Vitamin B12 578 pg/mL Test performed on Sep 13, 2019 18:05 Manual Lymphocytes 35.3 % Manual Monocytes 7.6 % Manual Eosinophils 3.8 % Manual Basophils 1.3 % Test performed on Aug 30, 2019 09:45 NRBCs 0.0 /100 WBC Test performed on Aug 02, 2019 10:13 % Iron Saturation 91.7 % UIBC < 17 ug/dL CBC Slide Review SLIDE REVIEW PERFORM SLIDE REVIEW AGREES WITH AUTOMATED RESULTS ST Impression: 1. Patient with moderately severe, macrocytic anemia and mild neutropenia. Bone marrow aspirate/biopsy on 09/01/2018 showed findings consistent with myelodysplastic syndrome, specifically MDS with ring sideroblasts. His IPSS-R calculated to 3.0, low risk. His heme next generation sequencing study showed presence of TET2 and ASXL1 mutations, both of which may be associated with high response rates to hypomethylating agents. 2. He also had significantly elevated transferrin saturation and ferritin levels. 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 His other medical illnesses include: 3. Coronary artery disease with previous angioplasty/stent placement. 4. Dyslipidemia. 5. COPD. 6. His records indicate a history of chronic inflammatory demyelinating polyneuropathy. In December 2018 he began a trial of therapy with Revlimid at 10 mg daily on a 21/ day schedule. Within one week he had a precipitous drop in his hemoglobin to 5.5 g. Associated with that, he had developed lower extremity edema and he most likely had a component of congestive heart failure. He improved following transfusion of 3 units of PRBC, though during subsequent follow-up he continued to have somewhat marginal performance status. He has remained transfusion dependent, requiring transfusion approximately on a monthly basis. Associated with that, there was a significant increase in his serum ferritin level. As of July 2019 it had increased to over 2000 ng/mL, and at that point he did start treatment with Jadenu. Thus far he has tolerated without adverse effects, though it was started at a reduced dosage. Plan: 1. He has been approved for a trial of therapy with luspaterecept, which recently has shown benefit in the treatment of transfusion dependent MDS with ring sideroblasts. He will begin his ifrst dose today 2. Education included luspatercept (Activin receptor ligand trap, hemopoietic agent) side effects discussed include hypertension, headache, fatigue, diarrhea, dizziness, arthralgia, increased serum bilirubin and increased aspartate aminotransferase, cough, pulmonary embolism, deep vein thrombosis, CVA, hyperuricemia and allergic reaction to include anaphylaxis, hives, rash, shortness of breath, nausea, vomiting. Instructions for oral care with baking soda and salt water rinses as well as a guide for use of [id number] medication were provided with the treatment plan. They have been given a written patient treatment plan, of which a copy is in the chart, as well as specific drug information, and a copy of that is also in the chart. Copies are in the chart for further written information provided to the patient. They have no questions and verbalized understanding and are willing to proceed with treatment at this time. Total time spent in face to face communication with this patient and/or his family in regards to plan of care, side effect 3. Labs from 10/23/2019 were reviewed in detail and discussed with Mr Chamberlain and a copy was given to him. HGB = 9.2. wbc 2.5 AND PLATELETS = 193,000. ANC is 1400 creatinine 0.820 bilirubin slightly elevated from previous result it is now 2.3. ALT is 12 AST is 21. Alk Phos is normal at 78. He has no signs of jaundice. 4. His last transfusion was on 06/21/2019. 5. We will arrange followup weekly in home labs and followup here it 3 weeks for cycle 2 luspatercept. The dose will need to be withheld if HGB > 11.5. 6. Mr Chamberlain was instructed to call us in the interim if questions or problems arise. Signed By: Mayra Orellana-, AOCNP Jordan Coffey MD <<Signature on File>>
[2019-10-30 17:31] LABS: Basophils % 0.6 %; Eosinophils # 0.1 10^3/uL (0.0-0.8); Eosinophils % 3.9 %; Hematocrit 28.2 % (42.0-52.0); Hemoglobin 9.3 g/dL (11.7-16.6); Lymphocytes # 0.9 10^3/uL (0.8-4.8); Mean Platelet Volume 11.3 fL (7.4-10.4); Monocytes # 0.2 10^3/uL (0.2-0.9); Monocytes % 6.1 %; Neutrophils # 1.8 10^3/uL (1.8-7.7); Neutrophils % 58.4 %; Nucleated Red Blood Cells % 0.6 %; Platelet Count 254 10^3/cmm (130-400); Red Blood Count 2.66 10^6/uL (4.1-5.3); Red Cell Distribution Width 22.9 % (12.1-15.1); White Blood Count 3.1 10^3/uL (4.0-10.0)
[2019-10-30 17:59] LABS: Alanine Aminotransferase 13 U/L (0-41); Albumin Level 4.1 g/dL (3.5-5.2); Alkaline Phosphatase 88 IU/L (40-130); Anion Gap 12.2 (5-19); Aspartate Amino Transferase 28 U/L (0-40); Blood Urea Nitrogen 6 mg/dL (8-23); Calcium 8.9 mg/dL (8.5-10.5); Carbon Dioxide 31 mmol/L (22-29); Chloride 104 mmol/L (98-107); Globulin 2.9 g/dL (1.3-4.6); Glomerular Filtration Rate 95.8 mL/min (90-130); Glucose 151 mg/dL (65-115); Osmolality Calculated 295 mOsm/kg (285-295); Potassium 4.2 mmol/L (3.5-5.1); Sodium 143 mmol/L (136-145); Total Bilirubin 1.3 mg/dL (0.15-1.2)
[2019-11-06 14:10] LABS: Basophils # 0.1 10^3/uL (0.0-0.1); Basophils % 1.6 %; Eosinophils # 0.2 10^3/uL (0.0-0.8); Eosinophils % 5.2 %; Hematocrit 38.1 % (42.0-52.0); Hemoglobin 12.3 g/dL (11.7-16.6); Lymphocytes % 33.8 %; Mean Corpuscular HGB Conc 32.3 g/dL (30.0-36.0); Mean Corpuscular Hemoglobin 34.9 pg (28.0-34.0); Mean Corpuscular Volume 108.2 fL (80-94); Mean Platelet Volume 11.7 fL (7.4-10.4); Monocytes # 0.2 10^3/uL (0.2-0.9); Monocytes % 7.1 %; Neutrophils # 1.6 10^3/uL (1.8-7.7); Nucleated Red Blood Cells % 0 %; Platelet Count 261 10^3/cmm (130-400); Red Blood Count 3.52 10^6/uL (4.1-5.3); Red Cell Distribution Width 24.1 % (12.1-15.1); White Blood Count 3.1 10^3/uL (4.0-10.0)
[2019-11-06 14:29] LABS: Alanine Aminotransferase 13 U/L (0-41); Alkaline Phosphatase 92 IU/L (40-130); Anion Gap 16.7 (5-19); Aspartate Amino Transferase 29 U/L (0-40); Blood Urea Nitrogen 12 mg/dL (8-23); Calcium 9.8 mg/dL (8.5-10.5); Carbon Dioxide 26 mmol/L (22-29); Chloride 100 mmol/L (98-107); Globulin 2.4 g/dL (1.3-4.6); Glomerular Filtration Rate 83.7 mL/min (90-130); Glucose 127 mg/dL (65-115); Osmolality Calculated 284 mOsm/kg (285-295); Potassium 4.7 mmol/L (3.5-5.1); Sodium 138 mmol/L (136-145); Total Bilirubin 2.7 mg/dL (0.15-1.2); Total Protein 7.4 g/dL (6.6-8.7)
[2019-11-12 18:20] LABS: Alanine Aminotransferase 11 U/L (0-41); Albumin Level 4.8 g/dL (3.5-5.2); Alkaline Phosphatase 82 IU/L (40-130); Aspartate Amino Transferase 27 U/L (0-40); Blood Urea Nitrogen 9 mg/dL (8-23); Calcium 9.6 mg/dL (8.5-10.5); Carbon Dioxide 26 mmol/L (22-29); Chloride 100 mmol/L (98-107); Globulin 1.9 g/dL (1.3-4.6); Glomerular Filtration Rate 83.7 mL/min (90-130); Glucose 112 mg/dL (65-115); Osmolality Calculated 285 mOsm/kg (285-295); Sodium 139 mmol/L (136-145); Total Bilirubin 1.9 mg/dL (0.15-1.2); Total Protein 6.7 g/dL (6.6-8.7)
[2019-11-12 18:25] LABS: Basophils % 1.2 %; Eosinophils # 0.1 10^3/uL (0.0-0.8); Eosinophils % 3.3 %; Hematocrit 31.5 % (42.0-52.0); Lymphocytes # 1.1 10^3/uL (0.8-4.8); Lymphocytes % 33.6 %; Mean Corpuscular HGB Conc 31.7 g/dL (30.0-36.0); Mean Corpuscular Hemoglobin 33.2 pg (28.0-34.0); Mean Corpuscular Volume 104.7 fL (80-94); Mean Platelet Volume 11.7 fL (7.4-10.4); Monocytes # 0.3 10^3/uL (0.2-0.9); Monocytes % 8.5 %; Neutrophils # 1.8 10^3/uL (1.8-7.7); Neutrophils % 53.1 %; Nucleated Red Blood Cells % 0 %; Platelet Count 253 10^3/cmm (130-400); Red Blood Count 3.01 10^6/uL (4.1-5.3); Red Cell Distribution Width 23.9 % (12.1-15.1); White Blood Count 3.3 10^3/uL (4.0-10.0)
[2019-11-13] MEDS: luspatercept-aamt 75 mg 69 MG SUBCUT (13:57)
--- NOTE | 2019-11-15 07:14 | ONC FU_ITS ---
Dr. Coffey Patient Follow-Up Note Patient: Jose Chamberlain Unit #: [id number]: 1950 Dicatated By: Jordan Coffey M.D.Date of Visit:Nov 13, 2019 Onc Med Follow-up/Prog Note Chief Complaint: Myelodysplastic syndrome. History of Present Illness: This is a 69 year-old man with myelodysplastic syndrome (MDS with ring sideroblasts), low risk. He also has hemochromatosis. In 2016 he was diagnosed with hemochromatosis based on elevated iron and ferritin levels. According to the patient's daughter, he was phlebotomized twice for it. I had seen him initially on 02/06/2018 after he had been found to be anemic. The available records included a CBC from 01/11/2018 showing low hemoglobin at 8.3 g with white blood cell count 3300 and platelet count 322,000. Renal function at that time was normal with BUN 9 and creatinine 0.84 mg/dL. The liver enzymes also were normal. The total bilirubin was slightly elevated at 1.6 mg/dL. The serum iron was elevated at 198 mcg/dL with transferrin saturation 97.2%. Ferritin was elevated at 1301.0 ng/mL. His laboratory evaluation in January 2018 included CBC showing hemoglobin 10.5 g with white blood cell count 3000 and platelet count 229,000. The red cell indices were macrocytic. The sedimentation rate was normal at 10 mm/hour. Comprehensive metabolic profile was unremarkable except for mildly elevated total bilirubin at 1.4 mg/dL. LDH was normal at 148 U/L. B12 level was normal at 541 pg/mL. His serum iron was elevated at 219 mcg/dL with transferrin saturation 89.6%. The ferritin was elevated at 1359 ng/mL. 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 At the time, I felt that he probably would require bone marrow aspiration/biopsy, but he had failed to return for follow-up. His repeat laboratory studies done through the [place] on 08/14/2018 included CBC showing hemoglobin down to 7.6 g with hematocrit 23%. The red cell indices were macrocytic with MCV 113 and MCH 36. The white blood cell count was 3300 and the platelet count was 278,000. The uncorrected reticulocyte count was 2.5%. LDH was normal 158 U/L. A haptoglobin level was requested, but the result was not included. TSH was slightly low at 0.31 mIU/mL. Serum iron studies show transferrin saturation 86.1%. PSA level was 1.00 ng/mL. CEA level was 1.95 ng/mL. I had seen him for a follow-up visit on 08/24/2018, and at that point I did recommend bone marrow aspiration/biopsy. I also began empiric steroid therapy for muscle pain. He underwent bone marrow aspiration/biopsy on 09/01/2018. The marrow was hypercellular, estimated at 100%. 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 There was profound erythroid hyperplasia with associated dyserythropoiesis. The bone marrow differential included 2% blasts. CD34 positive blasts and CD 117 positive precursors were slightly increased estimated at 3% and 5% of the cellularity respectively. Iron stores were only 1+, but numerous ring sideroblasts were present. The FISH panel for MDS was unrevealing, and the standard chromosome analysis was normal. His further evaluation included an erythropoietin level, which was relatively high 143 mIU/mL. He was seen for a follow-up visit on 09/18/2018. He had noticed some improvement in his muscle pain with the prednisone, but it was not dramatic. At that point I had requested further evaluation with a [facility] next generation sequencing study. 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 He also was found to be MSI stable with low mutation burden. He was seen for a follow-up visit on 12/20/2018. At that time his hemoglobin was 8.8 g with white blood cell count 2800 and platelet count 276,000. He continued to complain of severe fatigue. With the declining blood counts and performance status, I had recommended a trial of therapy with Revlimid at 10 mg daily on a day schedule. Within one week of starting the medication, his son called reported that he had developed severe weakness, shortness of breath, and lower extremity edema. There was a precipitous drop in his hemoglobin, to 5.5 g with white blood cell count stable at 3300 and platelet count stable at 210,000. He had no symptoms to suggest acute blood loss. Chest x-ray showed COPD and possible edema, but there was no acute infiltrate. He was given IV Lasix and he began outpatient transfusion of PRBC. His shortness of breath, though, worsened, and he was placed in the hospital on overnight observation to complete the transfusion. He was able to be discharged the following day. He received a total of 3 units of PRBC. His Revlimid was put on hold. I had seen him for a follow-up visit on 01/19/2019. He had improved significantly following the transfusions, though at that time he did have symptoms of COPD exacerbation, for which he was given antibiotic coverage with Levaquin. During subsequent follow-up he had remained transfusion dependent, requiring transfusion pretty regularly on a monthly basis. He was most recently transfused on 06/21/2019 after his hemoglobin had dropped back down to 6.8 g. In the July 2019 he began treatment with Jadenu for iron overload, as his ferritin level had increased to over 2000 ng/mL. His hemoglobin had subsequently stabilized in the range of 9 to 10 g. His other medical illnesses include coronary artery disease, dyslipidemia, and COPD. 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 He has a history of smoking for more than 40 years, in the range of 1 to 1 1/2 packs of cigarettes daily. INTERIM HISTORY: On 10/23/2019 he began a trial of therapy with luspatercept at 1 mg/kg by subcutaneous injection every 3 weeks. He is seen for a follow-up visit. He indicates that he has had a little more energy lately. As of last week his hemoglobin had increased to 12.3 g, though yesterday was back down to 10.0 g. He has had occasional episodes in which he has developed swelling with itchy whelps on his legs. The most recent episode occurred this morning, but it has already resolved. The description certainly consistent with hives. He says his appetite is the same. His weight is stable. He has no fever or night sweats. His breathing lately has been okay. He has a cigarette cough. He does not complain of chest pain. He sometimes has diarrhea. He has no other GI or complaints. He has some joint pain, but not bad. He has no focal neurologic symptoms. Medications: Aleve 1 Capsule (of 220 mg) Oral PRN, Aspirin 1 Tablet (of 81 mg) Oral daily, Coreg 0.5 Tablet (of 6.25 mg) Oral daily PRN, Gabapentin 2 Capsule (of 300 mg) Oral at bedtime, HYDROcodone-Acetaminophen 1 - 2 Tablet (of 5-325 mg) Oral q 4 hours, Lasix 1 Tablet (of 20 mg) Oral b.i.d. PRN, Proventil HFA 1 puff(s) (of 108 (90 base) mcg/act) Aerosol, solution Inhalation PRN, Simvastatin 0.5 Tablet (of 40 mg) Oral daily Allergies: No Known Allergies. Review of Systems: Constitutional - His energy level is increasing. 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 His appetite is good and weight is stable. No fever, chills, hot flashes, or night sweats. ECOG score is 1, ENMT - No sinus congestion/drainage. No mouth sores. No sore throat or difficulty swallowing, Hematologic/Lymphatic - No abnormal bruising or bleeding, Respiratory - No shortness of breath. He has a chronic smokers cough. No pleuritic pain or hemoptysis, Cardiovascular - No angina pain. No palpitations, Gastrointestinal - No nausea or vomiting. No heartburn or acid reflux. He occasional has episodes of diarrhea. No constipation. No blood in the stool or black stools, Genitourinary (M) - No dysuria or hematuria. No urinary frequency. No urgency or incontinence, Musculoskeletal - No joint or bone pain, Integumentary - He has had occasional episodes of getting whelps on legs. The most recent episode occurred this morning, Neurologic - No headache or dizziness. No numbness/paresthesias or other focal neurologic symptoms, Psychiatric - No anxiety or depression. No insomnia. Vital Signs: Performed on Nov 13, 2019 13:07 Height - 68.00 in Weight - 155.4 lbs (HIGH) BSA - 1.84 sq.m BMI - 23.63 Temperature - 98.5 F Pulse - 65 /min Respiration - 22 /min BP - 102/55 mm(hg) O2 Sat - 99 % Pain - 0 Physical Examination: Constitutional - He appears somewhat weak generally, Eyes - Sclerae nonicteric. Conjunctivae clear, ENMT - No lesions noted in the oral cavity, Hematologic/Lymphatic - No cervical, clavicular, or axillary adenopathy, Respiratory - Lungs show diminished in air movement with slightly coarse breath sounds bilaterally, Cardiovascular - Heart tones are distant. The rhythm is regular. There is a II/ systolic murmur. There is no gallop or rub noted, Abdomen - Soft. Liver and spleen are not enlarged. There is no abdominal mass or ascites noted and there is no inguinal adenopathy, Extremities - No edema, Integumentary - There is currently no skin eruption, Neurologic - No focal neurologic deficits noted. Lab/Imaging: CBC shows hemoglobin 10.0 g, white blood cell count 3300, and platelet count 253,000. Comprehensive metabolic profile is unremarkable except for slightly elevated total bilirubin at 1.9 mg/dL. That is unchanged compared to previous studies. Impression: 1. Patient with moderately severe, macrocytic anemia and mild neutropenia. Bone marrow aspirate/biopsy on 09/01/2018 showed findings consistent with myelodysplastic syndrome, specifically MDS with ring sideroblasts. His IPSS-R calculated to 3.0, low risk. His heme next generation sequencing study showed presence of TET2 and ASXL1 mutations, both of which may be associated with high response rates to hypomethylating agents. 2. He also had significantly elevated transferrin saturation and ferritin levels. 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 His other medical illnesses include: 3. Coronary artery disease with previous angioplasty/stent placement. 4. Dyslipidemia. 5. COPD. 6. His records indicate a history of chronic inflammatory demyelinating polyneuropathy. In December 2018 he began a trial of therapy with Revlimid at 10 mg daily on a 21/28 day schedule. Within one week he had a precipitous drop in his hemoglobin to 5.5 g. Associated with that, he had developed lower extremity edema and he most likely had a component of congestive heart failure. He improved following transfusion of 3 units of PRBC, though during subsequent follow-up he continued to have somewhat marginal performance status. He has remained transfusion dependent, requiring transfusion approximately on a monthly basis. Associated with that, there was a significant increase in his serum ferritin level. As of July 2019 it had increased to over 2000 ng/mL, and at that point he did start treatment with Jadenu. During subsequent follow-up his hemoglobin had stabilized in the range of 9 to 10 g. He has had no further transfusion. As of 10/23/2019 he began a trial of therapy with luspatercept at 1 mg/kg by subcutaneous injection every 3 weeks. He tolerated the initial injection with no adverse effects. As of 1 week ago his hemoglobin had increased to 12.3 g, but it has come back down to 10.0 g. He has had occasional episodes of hives, the underlying cause for which has not been determined. Overall, though, he has been doing pretty well clinically. Plan: He will bd given luspatercept 1 mg/kg by subcutaneous injection. He will continue Jadenu at the current dosage. He will return for treatment in 3 weeks and for a follow-up visit in 6 weeks. Signed By: Jordan Coffey M.D. <<Signature on File>>
== END 2019-11-13 23:59 | disposition home or self-care (01) ==
LOC: ONCMED 06:38
PROVIDERS: Nurse Practitioner; Absent Provider Internal Medicine Medical Oncology; Visit Provider Internal Medicine Medical Oncology
DX: D46.1 Refractory anemia with ring sideroblasts (principal); E83.110 Hereditary hemochromatosis; I25.10 Atherosclerotic heart disease of native coronary artery without angina pectoris; E78.5 Hyperlipidemia, unspecified; J44.9 Chronic obstructive pulmonary disease, unspecified; G61.81 Chronic inflammatory demyelinating polyneuritis; F17.210 Nicotine dependence, cigarettes, uncomplicated; Z79.82 Long term (current) use of aspirin; Z79.899 Other long term (current) drug therapy; Z79.891 Long term (current) use of opiate analgesic; Z95.5 Presence of coronary angioplasty implant and graft
CPT/HCPCS: 36415; 80053; 85025; 96372; 99214; C9399

== ENCOUNTER 2019-12-04 07:06 | Outpatient (RCR) | payer OTHER, SELFPAY ==
[2019-12-03 19:32] LABS: Basophils % 1.3 %; Eosinophils # 0.1 10^3/uL (0.0-0.8); Eosinophils % 3.9 %; Hematocrit 28.7 % (42.0-52.0); Hemoglobin 9.1 g/dL (11.7-16.6); Lymphocytes # 0.9 10^3/uL (0.8-4.8); Lymphocytes % 30.4 %; Mean Corpuscular HGB Conc 31.7 g/dL (30.0-36.0); Mean Corpuscular Hemoglobin 33.5 pg (28.0-34.0); Mean Corpuscular Volume 105.5 fL (80-94); Mean Platelet Volume 11.4 fL (7.4-10.4); Monocytes # 0.3 10^3/uL (0.2-0.9); Monocytes % 9.5 %; Neutrophils # 1.7 10^3/uL (1.8-7.7); Neutrophils % 54.2 %; Nucleated Red Blood Cells % 0.7 %; Platelet Count 247 10^3/cmm (130-400); Red Blood Count 2.72 10^6/uL (4.1-5.3); Red Cell Distribution Width 25.3 % (12.1-15.1); White Blood Count 3.1 10^3/uL (4.0-10.0)
[2019-12-03 20:47] LABS: Alanine Aminotransferase 10 U/L (0-41); Albumin Level 4.8 g/dL (3.5-5.2); Alkaline Phosphatase 76 IU/L (40-130); Anion Gap 18.4 (5-19); Aspartate Amino Transferase 33 U/L (0-40); Blood Urea Nitrogen 16 mg/dL (8-23); Calcium 9.6 mg/dL (8.5-10.5); Carbon Dioxide 23 mmol/L (22-29); Chloride 102 mmol/L (98-107); Globulin 2.4 g/dL (1.3-4.6); Glomerular Filtration Rate 66.4 mL/min (90-130); Glucose 121 mg/dL (65-115); Osmolality Calculated 286 mOsm/kg (285-295); Potassium 4.4 mmol/L (3.5-5.1); Sodium 139 mmol/L (136-145); Total Bilirubin 1.6 mg/dL (0.15-1.2); Total Protein 7.2 g/dL (6.6-8.7)
== END 2019-12-13 23:59 | disposition home or self-care (01) ==
LOC: ONCMED 07:06
PROVIDERS: Visit Provider Internal Medicine Medical Oncology
DX: E83.111 Hemochromatosis due to repeated red blood cell transfusions (principal); D46.1 Refractory anemia with ring sideroblasts; G61.81 Chronic inflammatory demyelinating polyneuritis; I25.10 Atherosclerotic heart disease of native coronary artery without angina pectoris; E78.5 Hyperlipidemia, unspecified
CPT/HCPCS: 36415; 80053; 85025; 96372; C9399

== ENCOUNTER 2020-01-11 06:46 | Outpatient (RCR) | payer OTHER, SELFPAY ==
[2019-12-24 15:34] LABS: Alanine Aminotransferase 7 U/L (0-41); Albumin Level 4.7 g/dL (3.5-5.2); Alkaline Phosphatase 86 IU/L (40-130); Aspartate Amino Transferase 22 U/L (0-40); Blood Urea Nitrogen 11 mg/dL (8-23); Carbon Dioxide 24 mmol/L (22-29); Chloride 102 mmol/L (98-107); Ferritin 569 ng/mL (30-400); Globulin 2.9 g/dL (1.3-4.6); Glomerular Filtration Rate 83.7 mL/min (90-130); Glucose 120 mg/dL (65-115); Iron 563 ug/dL (59-158); Osmolality Calculated 287 mOsm/kg (285-295); Percent Saturation 56.6 % (20-50); Sodium 140 mmol/L (136-145); Total Bilirubin 2.9 mg/dL (0.15-1.2); Total Iron Binding Capacity 994 mcg/dl; Total Protein 7.6 g/dL (6.6-8.7); Unsaturated Iron Binding 431 ug/dL (112-347)
[2019-12-25 05:34] LABS: Basophils % 0.7 %; Eosinophils # 0.1 10^3/uL (0.0-0.8); Hematocrit 32.9 % (42.0-52.0); Hemoglobin 9.8 g/dL (11.7-16.6); Lymphocytes # 0.8 10^3/uL (0.8-4.8); Lymphocytes % 25.2 %; Mean Corpuscular HGB Conc 29.8 g/dL (30.0-36.0); Mean Corpuscular Hemoglobin 33.7 pg (28.0-34.0); Mean Corpuscular Volume 113.1 fL (80-94); Mean Platelet Volume 12.1 fL (7.4-10.4); Monocytes # 0.2 10^3/uL (0.2-0.9); Neutrophils # 1.9 10^3/uL (1.8-7.7); Neutrophils % 63.8 %; Nucleated Red Blood Cells % 0 %; Platelet Count 208 10^3/cmm (130-400); Red Blood Count 2.91 10^6/uL (4.1-5.3); Red Cell Distribution Width 27.6 % (12.1-15.1)
[2019-12-25 16:19] LABS: Lactate Dehydrogenase 176 U/L (135-225)
--- NOTE | 2019-12-28 11:46 | ONC FU_ITS ---
Dr. Coffey Patient Follow-Up Note Patient: Jose Chamberlain Unit #: [id number]: 1950 Dicatated By: Jordan Coffey M.D.Date of Visit:December 25, 2019 Onc Med Follow-up/Prog Note Chief Complaint: Myelodysplastic syndrome. History of Present Illness: This is a 69 year-old man with myelodysplastic syndrome (MDS with ring sideroblasts), low risk. He also has hemochromatosis. In 2016 he was diagnosed with hemochromatosis based on elevated iron and ferritin levels. According to the patient's daughter, he was phlebotomized twice for it. I had seen him initially on 02/06/2018 after he had been found to be anemic. The available records included a CBC from 01/11/2018 showing low hemoglobin at 8.3 g with white blood cell count 3300 and platelet count 322,000. Renal function at that time was normal with BUN 9 and creatinine 0.84 mg/dL. The liver enzymes also were normal. The total bilirubin was slightly elevated at 1.6 mg/dL. The serum iron was elevated at 198 mcg/dL with transferrin saturation 97.2%. Ferritin was elevated at 1301.0 ng/mL. His laboratory evaluation in January 2018 included CBC showing hemoglobin 10.5 g with white blood cell count 3000 and platelet count 229,000. The red cell indices were macrocytic. The sedimentation rate was normal at 10 mm/hour. Comprehensive metabolic profile was unremarkable except for mildly elevated total bilirubin at 1.4 mg/dL. LDH was normal at 148 U/L. B12 level was normal at 541 pg/mL. His serum iron was elevated at 219 mcg/dL with transferrin saturation 89.6%. The ferritin was elevated at 1359 ng/mL. 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 At the time, I felt that he probably would require bone marrow aspiration/biopsy, but he had failed to return for follow-up. His repeat laboratory studies done through the [facility] on 08/14/2018 included CBC showing hemoglobin down to 7.6 g with hematocrit 23%. The red cell indices were macrocytic with MCV 113 and MCH 36. The white blood cell count was 3300 and the platelet count was 278,000. The uncorrected reticulocyte count was 2.5%. LDH was normal 158 U/L. A haptoglobin level was requested, but the result was not included. TSH was slightly low at 0.31 mIU/mL. Serum iron studies show transferrin saturation 86.1%. PSA level was 1.00 ng/mL. CEA level was 1.95 ng/mL. I had seen him for a follow-up visit on 08/24/2018, and at that point I did recommend bone marrow aspiration/biopsy. I also began empiric steroid therapy for muscle pain. He underwent bone marrow aspiration/biopsy on 09/01/2018. The marrow was hypercellular, estimated at 100%. 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 There was profound erythroid hyperplasia with associated dyserythropoiesis. The bone marrow differential included 2% blasts. CD34 positive blasts and CD 117 positive precursors were slightly increased estimated at 3% and 5% of the cellularity respectively. Iron stores were only 1+, but numerous ring sideroblasts were present. The FISH panel for MDS was unrevealing, and the standard chromosome analysis was normal. His further evaluation included an erythropoietin level, which was relatively high 143 mIU/mL. He was seen for a follow-up visit on 09/18/2018. He had noticed some improvement in his muscle pain with the prednisone, but it was not dramatic. At that point I had requested further evaluation with a [facility] next generation sequencing study. 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 He also was found to be MSI stable with low mutation burden. He was seen for a follow-up visit on 12/20/2018. At that time his hemoglobin was 8.8 g with white blood cell count 2800 and platelet count 276,000. He continued to complain of severe fatigue. With the declining blood counts and performance status, I had recommended a trial of therapy with Revlimid at 10 mg daily on a day schedule. Within one week of starting the medication, his son called reported that he had developed severe weakness, shortness of breath, and lower extremity edema. There was a precipitous drop in his hemoglobin, to 5.5 g with white blood cell count stable at 3300 and platelet count stable at 210,000. He had no symptoms to suggest acute blood loss. Chest x-ray showed COPD and possible edema, but there was no acute infiltrate. He was given IV Lasix and he began outpatient transfusion of PRBC. His shortness of breath, though, worsened, and he was placed in the hospital on overnight observation to complete the transfusion. He was able to be discharged the following day. He received a total of 3 units of PRBC. His Revlimid was put on hold. I had seen him for a follow-up visit on 01/19/2019. He had improved significantly following the transfusions, though at that time he did have symptoms of COPD exacerbation, for which he was given antibiotic coverage with Levaquin. During subsequent follow-up he had remained transfusion dependent, requiring transfusion pretty regularly on a monthly basis. He was most recently transfused on 06/21/2019 after his hemoglobin had dropped back down to 6.8 g. In the July 2019 he began treatment with Jadenu for iron overload, as his ferritin level had increased to over 2000 ng/mL. His hemoglobin had subsequently stabilized in the range of 9 to 10 g. His other medical illnesses include coronary artery disease, dyslipidemia, and COPD. 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 He has a history of smoking for more than 40 years, in the range of 1 to 1 1/2 packs of cigarettes daily. INTERIM HISTORY: On 10/23/2019 he began a trial of therapy with luspatercept at 1 mg/kg by subcutaneous injection every 3 weeks. He initially appeared to have a good response, with hemoglobin increasing to 12.3 g on 11/06/2019. However, it has since then been gradually declining. He is seen for a follow-up visit. He complains that his energy has been down the last couple of weeks and he has been tiring more easily. He is still doing some light work. ECOG score is 1. He has good appetite. He has no fever or night sweats. He still has some itching. His family had indicated that he looked jaundiced. He is having some irritation in his left eye. He has had no mouth sores. He has some shortness of breath. He says his breathing is fair. He has a cigarette cough. He does not complain of chest pain. He has no GI or complaints. He has had some pain in his legs. He has no focal neurologic symptoms. Medications: Aleve 1 Capsule (of 220 mg) Oral PRN, Aspirin 1 Tablet (of 81 mg) Oral daily, Coreg 0.5 Tablet (of 6.25 mg) Oral daily PRN, Gabapentin 2 Capsule (of 300 mg) Oral at bedtime, HYDROcodone-Acetaminophen 1 - 2 Tablet (of 5-325 mg) Oral q 4 hours, Lasix 1 Tablet (of 20 mg) Oral b.i.d. PRN, Proventil HFA 1 puff(s) (of 108 (90 base) mcg/act) Aerosol, solution Inhalation PRN, Simvastatin 0.5 Tablet (of 40 mg) Oral daily Allergies: No Known Allergies. Review of Systems: Constitutional - His energy level is okay, but has been tiring more easily. He still does light work. His appetite is good and weight is stable. No fever, chills, hot flashes, or night sweats. ECOG score is 1, Eyes - He is having photophobia in his left eye. This started a few weeks ago. He also has yellowness to his sclerae, ENMT - No sinus congestion/drainage. No mouth sores. No sore throat or difficulty swallowing, Hematologic/Lymphatic - No abnormal bruising or bleeding, Respiratory - No shortness of breath. He has a chronic smoker's cough. No pleuritic pain or hemoptysis, Cardiovascular - No angina pain. No palpitations, Gastrointestinal - No nausea or vomiting. No heartburn or acid reflux. No diarrhea or constipation. No blood in the stool or black stools, Genitourinary (M) - No dysuria or hematuria. No urinary frequency. No urgency or incontinence, Musculoskeletal - No joint or bone pain, Integumentary - He continues to have intermittent episodes of whelps on legs. The most recent episode occurred one month ago, Neurologic - No headache or dizziness. No numbness/paresthesias or other focal neurologic symptoms, Psychiatric - No anxiety or depression. No insomnia. Vital Signs: Performed on December 25, 2019 14:23 Height - 68.00 in Weight - 155.8 lbs (HIGH) BSA - 1.84 sq.m BMI - 23.69 Temperature - 97.3 F (LOW) Pulse - 69 /min Respiration - 18 /min BP - 122/58 mm(hg) O2 Sat - 99 % Pain - 0 Physical Examination: Constitutional - He appears somewhat weak generally, Eyes - Sclerae nonicteric. Conjunctivae clear, ENMT - No lesions noted in the oral cavity, Hematologic/Lymphatic - No cervical, clavicular, or axillary adenopathy, Respiratory - Lungs sound clear with diminished air movement bilaterally, Cardiovascular - Heart tones are distant. The rhythm is regular. There is a II/ systolic murmur. There is no gallop or rub noted, Abdomen - Soft. Liver and spleen are not enlarged. There is no abdominal mass or ascites noted and there is no inguinal adenopathy, Extremities - No edema. He has mild purpura, Integumentary - There is no skin eruption noted, Neurologic - No focal neurologic deficits noted. Lab/Imaging: Test performed on December 25, 2019 09:10 LDH (Total) 176 U/L Test performed on December 24, 2019 09:10 Ferritin 569 ng/mL Iron 563 mcg/dL Sodium 140 mmol/L Iron Binding Capacity (TIBC) 994 mcg/dl Potassium 4.0 mmol/L % Iron Saturation 56.6 % Chloride 102 mmol/L CO2 24 mmol/L UIBC 431 mcg/dL Anion Gap 18.0 BUN 11 mg/dL Creatinine 0.9 mg/dL Cr Clearance (Est) 76.1400 mL/min eGFR 83.7 mL/min Glucose 120 mg/dL Calcium 10.0 mg/dL Protein, Total 7.6 g/dL Albumin 4.7 g/dL Globulin 2.9 g/dL Bilirubin, Total 2.9 mg/dL ALT (SGPT) 7 U/L AST (SGOT) 22 U/L Alkaline Phosphatase 86 IU/L WBC 3.0 10 3/uL RBC 2.91 10 6/uL HGB 9.8 g/dL HCT 32.9 % MCV 113.1 fL MCH 33.7 pg MCHC 29.8 g/dL RDW 27.6 % Platelet Count 208 10 3/cmm MPV 12.1 fL Neutrophils 1.9 10 3/uL Lymphocytes 0.8 10 3/uL Monocytes 0.2 10 3/uL Eosinophils 0.1 10 3/uL Basophils 0.0 10 3/uL Neutrophil % 63.8 % Lymphocyte % 25.2 % Monocyte % 7.0 % Eosinophil % 3.0 % Basophils % 0.7 % Impression: 1. Patient with moderately severe, macrocytic anemia and mild neutropenia. Bone marrow aspirate/biopsy on 09/01/2018 showed findings consistent with myelodysplastic syndrome, specifically MDS with ring sideroblasts. His IPSS-R calculated to 3.0, low risk. His heme next generation sequencing study showed presence of TET2 and ASXL1 mutations, both of which may be associated with high response rates to hypomethylating agents. 2. He also had significantly elevated transferrin saturation and ferritin levels. 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 His other medical illnesses include: 3. Coronary artery disease with previous angioplasty/stent placement. 4. Dyslipidemia. 5. COPD. 6. His records indicate a history of chronic inflammatory demyelinating polyneuropathy. In December 2018 he began a trial of therapy with Revlimid at 10 mg daily on a 21 day schedule. Within one week he had a precipitous drop in his hemoglobin to 5.5 g. Associated with that, he had developed lower extremity edema and he most likely had a component of congestive heart failure. He improved following transfusion of 3 units of PRBC, though during subsequent follow-up he continued to have somewhat marginal performance status. He has remained transfusion dependent, requiring transfusion approximately on a monthly basis. Associated with that, there was a significant increase in his serum ferritin level. As of July 2019 it had increased to over 2000 ng/mL, and at that point he did start treatment with Jadenu. During subsequent follow-up his hemoglobin had stabilized in the range of 9 to 10 g. He has had no further transfusion. As of 10/23/2019 he began a trial of therapy with luspatercept at 1 mg/kg by subcutaneous injection every 3 weeks. He tolerated the initial injection with no adverse effects. He initially appeared to have a good response with hemoglobin increasing to 12.3 g on 11/06/2019. However, since then it has been gradually declining, and he also has been showing decline in his activity tolerance. He has developed a mildly elevated total bilirubin, which is most likely treatment related. During follow-up he also has had occasional episodes of hives, and the specific cause for that has not been determined. Plan: He will continue treatment with luspatercept 1 mg/kg by subcutaneous injection. He will continue Jadenu at the same dosage. He will be scheduled for a follow-up visit in 3 weeks. Signed By: Jordan Coffey M.D. <<Signature on File>>
[2020-01-10 13:14] LABS: Basophils % 1.3 %; Eosinophils # 0.2 10^3/uL (0.0-0.8); Eosinophils % 4.8 %; Hematocrit 21.8 % (42.0-52.0); Hemoglobin 6.8 g/dL (11.7-16.6); Lymphocytes # 0.9 10^3/uL (0.8-4.8); Lymphocytes % 27.7 %; Mean Corpuscular HGB Conc 31.2 g/dL (30.0-36.0); Mean Corpuscular Hemoglobin 32.7 pg (28.0-34.0); Mean Corpuscular Volume 104.8 fL (80-94); Mean Platelet Volume 12.8 fL (7.4-10.4); Monocytes # 0.2 10^3/uL (0.2-0.9); Monocytes % 5.5 %; Neutrophils # 1.9 10^3/uL (1.8-7.7); Neutrophils % 59.7 %; Nucleated Red Blood Cells % 0 %; Platelet Count 237 10^3/cmm (130-400); Red Blood Count 2.08 10^6/uL (4.1-5.3); Red Cell Distribution Width 26.2 % (12.1-15.1); White Blood Count 3.1 10^3/uL (4.0-10.0)
[2020-01-10 14:41] LABS: Alanine Aminotransferase 6 U/L (0-41); Albumin Level 4.6 g/dL (3.5-5.2); Alkaline Phosphatase 85 IU/L (40-130); Aspartate Amino Transferase 19 U/L (0-40); Blood Urea Nitrogen 15 mg/dL (8-23); Calcium 9.9 mg/dL (8.5-10.5); Carbon Dioxide 23 mmol/L (22-29); Chloride 105 mmol/L (98-107); Globulin 2.2 g/dL (1.3-4.6); Glomerular Filtration Rate 54.7 mL/min (90-130); Glucose 171 mg/dL (65-115); Lactate Dehydrogenase 232 U/L (135-225); Osmolality Calculated 294 mOsm/kg (285-295); Sodium 142 mmol/L (136-145); Total Bilirubin 1.8 mg/dL (0.15-1.2); Total Protein 6.8 g/dL (6.6-8.7)
[2020-01-11] VITALS (10 sets, daily range): BP systolic 84–103; BP diastolic 46–58; PULSE 69–78; RESP 16; TEMP 36.3–37; O2SAT 94–95
[2020-01-11] MEDS: acetaminophen 325 mg Tablet 650 MG PO (10:30)
[2020-01-11] MEDS: diphenhydrAMINE 25 mg Capsule PO (10:30)
[2020-01-11 10:34] LABS: Iron 465 ug/dL (59-158); Percent Saturation 48.8 % (20-50); Total Iron Binding Capacity 952 mcg/dl; Unsaturated Iron Binding 487 ug/dL (112-347)
[2020-01-11] MEDS: sodium chloride 0.9% 250 ML 999 ML IV (10:55)
[2020-01-11] MEDS: FUROsemide 10 mg/mL SDV 2mL 20 MG IV (12:59)
--- NOTE | 2020-01-11 13:21 | ONC FU_ITS ---
Dr. Coffey Patient Follow-Up Note Patient: Jose Chamberlain Unit #: [id number]: [id number] Dicatated By: Jordan Coffey M.D.Date of Visit:January 11, 2020 Onc Med Follow-up/Prog Note Chief Complaint: Myelodysplastic syndrome. History of Present Illness: This is a 69 year-old man with myelodysplastic syndrome (MDS with ring sideroblasts), low risk. He has transfusion dependent anemia. He also has hemochromatosis. In 2016 he was diagnosed with hemochromatosis based on elevated iron and ferritin levels. According to the patient's daughter, he was phlebotomized twice for it. I had seen him initially on 02/06/2018 after he had been found to be anemic. The available records included a CBC from 01/11/2018 showing low hemoglobin at 8.3 g with white blood cell count 3300 and platelet count 322,000. Renal function at that time was normal with BUN 9 and creatinine 0.84 mg/dL. The liver enzymes also were normal. The total bilirubin was slightly elevated at 1.6 mg/dL. The serum iron was elevated at 198 mcg/dL with transferrin saturation 97.2%. Ferritin was elevated at 1301.0 ng/mL. His laboratory evaluation in January 2018 included CBC showing hemoglobin 10.5 g with white blood cell count 3000 and platelet count 229,000. The red cell indices were macrocytic. The sedimentation rate was normal at 10 mm/hour. Comprehensive metabolic profile was unremarkable except for mildly elevated total bilirubin at 1.4 mg/dL. LDH was normal at 148 U/L. B12 level was normal at 541 pg/mL. His serum iron was elevated at 219 mcg/dL with transferrin saturation 89.6%. The ferritin was elevated at 1359 ng/mL. 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 At the time, I felt that he probably would require bone marrow aspiration/biopsy, but he had failed to return for follow-up. His repeat laboratory studies done through the [facility] on 08/14/2018 included CBC showing hemoglobin down to 7.6 g with hematocrit 23%. The red cell indices were macrocytic with MCV 113 and MCH 36. The white blood cell count was 3300 and the platelet count was 278,000. The uncorrected reticulocyte count was 2.5%. LDH was normal 158 U/L. A haptoglobin level was requested, but the result was not included. TSH was slightly low at 0.31 mIU/mL. Serum iron studies show transferrin saturation 86.1%. PSA level was 1.00 ng/mL. CEA level was 1.95 ng/mL. I had seen him for a follow-up visit on 08/24/2018, and at that point I did recommend bone marrow aspiration/biopsy. I also began empiric steroid therapy for muscle pain. He underwent bone marrow aspiration/biopsy on 09/01/2018. The marrow was hypercellular, estimated at 100%. 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 There was profound erythroid hyperplasia with associated dyserythropoiesis. The bone marrow differential included 2% blasts. CD34 positive blasts and CD 117 positive precursors were slightly increased estimated at 3% and 5% of the cellularity respectively. Iron stores were only 1+, but numerous ring sideroblasts were present. The FISH panel for MDS was unrevealing, and the standard chromosome analysis was normal. His further evaluation included an erythropoietin level, which was relatively high 143 mIU/mL. He was seen for a follow-up visit on 09/18/2018. He had noticed some improvement in his muscle pain with the prednisone, but it was not dramatic. At that point I had requested further evaluation with a [facility] next generation sequencing study. 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 He also was found to be MSI stable with low mutation burden. He was seen for a follow-up visit on 12/20/2018. At that time his hemoglobin was 8.8 g with white blood cell count 2800 and platelet count 276,000. He continued to complain of severe fatigue. With the declining blood counts and performance status, I had recommended a trial of therapy with Revlimid at 10 mg daily on a 21 day schedule. Within one week of starting the medication, his son called reported that he had developed severe weakness, shortness of breath, and lower extremity edema. There was a precipitous drop in his hemoglobin, to 5.5 g with white blood cell count stable at 3300 and platelet count stable at 210,000. He had no symptoms to suggest acute blood loss. Chest x-ray showed COPD and possible edema, but there was no acute infiltrate. He was given IV Lasix and he began outpatient transfusion of PRBC. His shortness of breath, though, worsened, and he was placed in the hospital on overnight observation to complete the transfusion. He was able to be discharged the following day. He received a total of 3 units of PRBC. His Revlimid was put on hold. I had seen him for a follow-up visit on 01/19/2019. He had improved significantly following the transfusions, though at that time he did have symptoms of COPD exacerbation, for which he was given antibiotic coverage with Levaquin. During subsequent follow-up he had remained transfusion dependent, requiring transfusion pretty regularly on a monthly basis. He was most recently transfused on 06/21/2019 after his hemoglobin had dropped back down to 6.8 g. In the July 2019 he began treatment with Jadenu for iron overload, as his ferritin level had increased to over 2000 ng/mL. His hemoglobin had subsequently stabilized in the range of 9 to 10 g. His other medical illnesses include coronary artery disease, dyslipidemia, and COPD. 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 He has a history of smoking for more than 40 years, in the range of 1 to 1 1/2 packs of cigarettes daily. INTERIM HISTORY: On 10/23/2019 he began a trial of therapy with luspatercept at 1 mg/kg by subcutaneous injection every 3 weeks. He initially appeared to have a good response, with hemoglobin increasing to 12.3 g on 11/06/2019. However, during subsequent followup it had shown gradual decline. He is seen for a follow-up visit. He has been feeling a lot worse since his last visit. During the past week or 2 he has had virtually no activity. His ECOG score is 3. His appetite is poor, but he says he does eat. He actually has gained weight. He does not have fever or night sweats. His son says that he is sleeping 18 hours a day. He does not take his pain medication because he sleeps so much. He recently had another flareup of hives. It was itchy, but he did not take Benadryl, again because of potential sedation. His breathing is sometimes rough. He has a cigarette cough. He does not complain of chest pain. He has not been having nausea. He has had intermittent episodes of diarrhea, typically lasting about a week with 2-4 stools per day. The stool has been yellow to light brown in color. He has not been aware of any blood in the stool. He has some urinary frequency and urgency. He complains of having pain in every joint, especially the shoulders. He has been having headache and he also complains of dizziness. He has no focal neurologic symptoms. Medications: Aleve 1 Capsule (of 220 mg) Oral PRN, Aspirin 1 Tablet (of 81 mg) Oral daily, Coreg 0.5 Tablet (of 6.25 mg) Oral daily PRN, Gabapentin 2 Capsule (of 300 mg) Oral at bedtime PRN, HYDROcodone-Acetaminophen 1 - 2 Tablet (of 5-325 mg) Oral q 4 hours PRN, Jadenu 2 Tablet (of 360 mg) Oral daily, Proventil HFA 1 puff(s) (of 108 (90 base) mcg/act) Aerosol, solution Inhalation PRN, Simvastatin 0.5 Tablet (of 40 mg) Oral daily Allergies: No Known Allergies. Review of Systems: Constitutional - His energy level has declined significantly. Lately he has had no activity. Appetite also is poor, but he says that he does eat. He has gained weight. He does not have fever or night sweats. ECOG score is 3, ENMT - No sinus congestion/drainage. No mouth sores. No sore throat or difficulty swallowing, Hematologic/Lymphatic - He has easy bruising, Respiratory - His breathing is sometimes rough. He has a cigarette cough. No pleuritic pain or hemoptysis, Cardiovascular - No angina pain. No palpitations, Gastrointestinal - No nausea or vomiting. No heartburn or acid reflux. No diarrhea or constipation. He has been having episodes of diarrhea lasting about a week, typically with 3-4 stools per day. His stool has been yellow to light brown-colored. No blood in the stool or black stools, Genitourinary (M) - No dysuria or hematuria. He has urinary frequency and urgency. No incontinence, Musculoskeletal - He has pain in every joint, especially the shoulders, Integumentary - He continues to have intermittent episodes of hives, Neurologic - He complains of headache and he also has dizziness. No numbness/paresthesias or other focal neurologic symptoms, Psychiatric - No anxiety or depression. No insomnia. Vital Signs: Performed on January 11, 2020 08:24 Height - 68.00 in Weight - 162.8 lbs (HIGH) BSA - 1.87 sq.m BMI - 24.75 Temperature - 97.2 F (LOW) Pulse - 86 /min Respiration - 16 /min BP - 109/54 mm(hg) O2 Sat - 95 % (LOW) Pain - 0 Physical Examination: Constitutional - He appears generally weak and pale, Eyes - Sclerae nonicteric. Conjunctivae clear, ENMT - No lesions noted in the oral cavity, Hematologic/Lymphatic - No cervical, clavicular, or axillary adenopathy, Respiratory - Lungs show diminished air movement bilaterally. There are scattered rales present, Cardiovascular - Heart tones are distant. The rhythm is regular. There is a II/ systolic murmur. There is no gallop or rub noted, Abdomen - Soft. Liver and spleen are not enlarged. There is no abdominal mass or ascites noted and there is no inguinal adenopathy, Extremities - Slight edema, Integumentary - There is currently no skin eruption, Neurologic - No focal neurologic deficits noted. Lab/Imaging: CBC shows hemoglobin 6.8 g, white blood cell count 3100, and platelet count 237,000. Comprehensive metabolic profile shows stable renal function with BUN 15 and creatinine 1.3 mg/dL. Bilirubin is slightly elevated at 1.8 mg/dL. The liver enzymes are normal. LDH is slightly elevated at 232 U/L. Impression: 1. Patient with moderately severe, macrocytic anemia and mild neutropenia. Bone marrow aspirate/biopsy on 09/01/2018 showed findings consistent with myelodysplastic syndrome, specifically MDS with ring sideroblasts. His IPSS-R calculated to 3.0, low risk. His heme next generation sequencing study showed presence of TET2 and ASXL1 mutations, both of which may be associated with high response rates to hypomethylating agents. 2. He also had significantly elevated transferrin saturation and ferritin levels. 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 His other medical illnesses include: 3. Coronary artery disease with previous angioplasty/stent placement. 4. Dyslipidemia. 5. COPD. 6. His records indicate a history of chronic inflammatory demyelinating polyneuropathy. In December 2018 he began a trial of therapy with Revlimid at 10 mg daily on a day schedule. Within one week he had a precipitous drop in his hemoglobin to 5.5 g. Associated with that, he had developed lower extremity edema and he most likely had a component of congestive heart failure. He improved following transfusion of 3 units of PRBC, though during subsequent follow-up he continued to have somewhat marginal performance status. He has remained transfusion dependent, requiring transfusion approximately on a monthly basis. Associated with that, there was a significant increase in his serum ferritin level. As of July 2019 it had increased to over 2000 ng/mL, and at that point he did start treatment with Jadenu. During subsequent follow-up his hemoglobin had stabilized in the range of 9 to 10 g. As of 10/23/2019 he began a trial of therapy with luspatercept at 1 mg/kg by subcutaneous injection every 3 weeks. He tolerated the initial injection with no adverse effects. He initially appeared to have a good response with hemoglobin increasing to 12.3 g on 11/06/2019. However, during subsequent follow-up it had declined gradually. He also developed a mildly elevated total bilirubin level. As of his follow-up visit on 12/25/2019 his hemoglobin was still adequate at 9.8 g. However, as of yesterday it had decreased to 6.8 g with white blood cell count mildly decreased at 3100 and platelet count normal at 237,000. Bilirubin was just slightly elevated at 1.8 mg/dL. During this time, there has been a significant decline in his performance status. Plan: He will be transfused 2 units of PRBC. The luspatercept will be discontinued, and he will also stop the Jadenu. I will have him start prednisone at 10 mg twice daily. He can take Imodium as needed for diarrhea and he can try loratadine or cetirizine as needed for itching. His blood count will be rechecked in 2 weeks. I will see him again in 1 month. Signed By: Jordan Coffey M.D. <<Signature on File>>
== END 2020-01-13 23:59 | disposition home or self-care (01) ==
LOC: ONCMED 06:46
PROVIDERS: Visit Provider Internal Medicine Medical Oncology
DX: D46.1 Refractory anemia with ring sideroblasts (principal); E83.110 Hereditary hemochromatosis; E80.7 Disorder of bilirubin metabolism, unspecified; L50.9 Urticaria, unspecified; R19.7 Diarrhea, unspecified; I25.10 Atherosclerotic heart disease of native coronary artery without angina pectoris; E78.5 Hyperlipidemia, unspecified; J44.9 Chronic obstructive pulmonary disease, unspecified; G61.81 Chronic inflammatory demyelinating polyneuritis; Z95.5 Presence of coronary angioplasty implant and graft; Z79.899 Other long term (current) drug therapy; Z87.891 Personal history of nicotine dependence
CPT/HCPCS: 36415; 36430; 80053; 82248; 82728; 83010; 83540; 83550; 83615; 85025; 86850; 86900; 86920; 96372; 99214; C9399; J1940; J7050; P9040

== ENCOUNTER 2020-02-07 06:43 | Outpatient (RCR) | payer OTHER, SELFPAY ==
[2020-01-23 14:04] LABS: Basophils % 0.6 %; Eosinophils % 0.6 %; Hematocrit 30.5 % (42.0-52.0); Hemoglobin 9.3 g/dL (11.7-16.6); Lymphocytes # 1.1 10^3/uL (0.8-4.8); Lymphocytes % 34.6 %; Mean Corpuscular HGB Conc 30.5 g/dL (30.0-36.0); Mean Corpuscular Hemoglobin 30.8 pg (28.0-34.0); Mean Platelet Volume 11.7 fL (7.4-10.4); Monocytes # 0.2 10^3/uL (0.2-0.9); Monocytes % 5.7 %; Neutrophils # 1.8 10^3/uL (1.8-7.7); Neutrophils % 58.2 %; Nucleated Red Blood Cells % 0 %; Platelet Count 184 10^3/cmm (130-400); Red Blood Count 3.02 10^6/uL (4.1-5.3); Red Cell Distribution Width 22.3 % (12.1-15.1); White Blood Count 3.2 10^3/uL (4.0-10.0)
[2020-02-06 15:01] LABS: Basophils % 1.4 %; Eosinophils # 0.1 10^3/uL (0.0-0.8); Eosinophils % 3.9 %; Hematocrit 33.2 % (42.0-52.0); Lymphocytes # 1.1 10^3/uL (0.8-4.8); Mean Corpuscular HGB Conc 30.1 g/dL (30.0-36.0); Mean Corpuscular Hemoglobin 30.7 pg (28.0-34.0); Mean Corpuscular Volume 101.8 fL (80-94); Monocytes # 0.3 10^3/uL (0.2-0.9); Monocytes % 9.2 %; Neutrophils # 1.4 10^3/uL (1.8-7.7); Neutrophils % 48.5 %; Nucleated Red Blood Cells % 0 %; Platelet Count 222 10^3/cmm (130-400); Red Blood Count 3.26 10^6/uL (4.1-5.3); Red Cell Distribution Width 21.7 % (12.1-15.1); White Blood Count 2.8 10^3/uL (4.0-10.0)
[2020-02-06 16:06] LABS: Alanine Aminotransferase 19 U/L (0-41); Albumin Level 4.4 g/dL (3.5-5.2); Alkaline Phosphatase 64 IU/L (40-130); Anion Gap 16.6 (5-19); Aspartate Amino Transferase 30 U/L (0-40); Blood Urea Nitrogen 8 mg/dL (8-23); Calcium 9.2 mg/dL (8.5-10.5); Carbon Dioxide 27 mmol/L (22-29); Chloride 100 mmol/L (98-107); Ferritin 747 ng/mL (30-400); Globulin 2.4 g/dL (1.3-4.6); Glomerular Filtration Rate 133.6 mL/min (90-130); Glucose 215 mg/dL (65-115); Iron 149 ug/dL (59-158); Osmolality Calculated 292 mOsm/kg (285-295); Percent Saturation 70.6 % (20-50); Potassium 3.6 mmol/L (3.5-5.1); Sodium 140 mmol/L (136-145); Total Bilirubin 1.5 mg/dL (0.15-1.2); Total Iron Binding Capacity 211 mcg/dl; Total Protein 6.8 g/dL (6.6-8.7); Unsaturated Iron Binding 62 ug/dL (112-347)
--- NOTE | 2020-02-07 13:28 | ONC FU_ITS ---
Dr. Coffey Patient Follow-Up Note Patient: Jose Chamberlain Unit #: [id number]: 1950 Dicatated By: Jordan Coffey M.D.Date of Visit:Feb 07, 2020 Onc Med Follow-up/Prog Note Chief Complaint: Myelodysplastic syndrome. History of Present Illness: This is a 69 year-old man with myelodysplastic syndrome (MDS with ring sideroblasts), low risk. He has transfusion dependent anemia. He also has hemochromatosis. In 2016 he was diagnosed with hemochromatosis based on elevated iron and ferritin levels. According to the patient's daughter, he was phlebotomized twice for it. I had seen him initially on 02/06/2018 after he had been found to be anemic. The available records included a CBC from 01/11/2018 showing low hemoglobin at 8.3 g with white blood cell count 3300 and platelet count 322,000. Renal function at that time was normal with BUN 9 and creatinine 0.84 mg/dL. The liver enzymes also were normal. The total bilirubin was slightly elevated at 1.6 mg/dL. The serum iron was elevated at 198 mcg/dL with transferrin saturation 97.2%. Ferritin was elevated at 1301.0 ng/mL. His laboratory evaluation in January 2018 included CBC showing hemoglobin 10.5 g with white blood cell count 3000 and platelet count 229,000. The red cell indices were macrocytic. The sedimentation rate was normal at 10 mm/hour. Comprehensive metabolic profile was unremarkable except for mildly elevated total bilirubin at 1.4 mg/dL. LDH was normal at 148 U/L. B12 level was normal at 541 pg/mL. His serum iron was elevated at 219 mcg/dL with transferrin saturation 89.6%. The ferritin was elevated at 1359 ng/mL. 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 At the time, I felt that he probably would require bone marrow aspiration/biopsy, but he had failed to return for follow-up. His repeat laboratory studies done through the [facility] on 08/14/2018 included CBC showing hemoglobin down to 7.6 g with hematocrit 23%. The red cell indices were macrocytic with MCV 113 and MCH 36. The white blood cell count was 3300 and the platelet count was 278,000. The uncorrected reticulocyte count was 2.5%. LDH was normal 158 U/L. A haptoglobin level was requested, but the result was not included. TSH was slightly low at 0.31 mIU/mL. Serum iron studies show transferrin saturation 86.1%. PSA level was 1.00 ng/mL. CEA level was 1.95 ng/mL. I had seen him for a follow-up visit on 08/24/2018, and at that point I did recommend bone marrow aspiration/biopsy. I also began empiric steroid therapy for muscle pain. He underwent bone marrow aspiration/biopsy on 09/01/2018. The marrow was hypercellular, estimated at 100%. 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 There was profound erythroid hyperplasia with associated dyserythropoiesis. The bone marrow differential included 2% blasts. CD34 positive blasts and CD 117 positive precursors were slightly increased estimated at 3% and 5% of the cellularity respectively. Iron stores were only 1+, but numerous ring sideroblasts were present. The FISH panel for MDS was unrevealing, and the standard chromosome analysis was normal. His further evaluation included an erythropoietin level, which was relatively high 143 mIU/mL. He was seen for a follow-up visit on 09/18/2018. He had noticed some improvement in his muscle pain with the prednisone, but it was not dramatic. At that point I had requested further evaluation with a [facility] next generation sequencing study. 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 He also was found to be MSI stable with low mutation burden. He was seen for a follow-up visit on 12/20/2018. At that time his hemoglobin was 8.8 g with white blood cell count 2800 and platelet count 276,000. He continued to complain of severe fatigue. With the declining blood counts and performance status, I had recommended a trial of therapy with Revlimid at 10 mg daily on a 21 day schedule. Within one week of starting the medication, his son called reported that he had developed severe weakness, shortness of breath, and lower extremity edema. There was a precipitous drop in his hemoglobin, to 5.5 g with white blood cell count stable at 3300 and platelet count stable at 210,000. He had no symptoms to suggest acute blood loss. Chest x-ray showed COPD and possible edema, but there was no acute infiltrate. He was given IV Lasix and he began outpatient transfusion of PRBC. His shortness of breath, though, worsened, and he was placed in the hospital on overnight observation to complete the transfusion. He was able to be discharged the following day. He received a total of 3 units of PRBC. His Revlimid was put on hold. I had seen him for a follow-up visit on 01/19/2019. He had improved significantly following the transfusions, though at that time he did have symptoms of COPD exacerbation, for which he was given antibiotic coverage with Levaquin. During subsequent follow-up he had remained transfusion dependent, requiring transfusion pretty regularly on a monthly basis. He was most recently transfused on 06/21/2019 after his hemoglobin had dropped back down to 6.8 g. In the July 2019 he began treatment with Jadenu for iron overload, as his ferritin level had increased to over 2000 ng/mL. His hemoglobin had subsequently stabilized in the range of 9 to 10 g. His other medical illnesses include coronary artery disease, dyslipidemia, and COPD. 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 He has a history of smoking for more than 40 years, in the range of 1 to 1 1/2 packs of cigarettes daily. INTERIM HISTORY: On 10/23/2019 he began a trial of therapy with luspatercept at 1 mg/kg by subcutaneous injection every 3 weeks. He initially appeared to have a good response, with hemoglobin increasing to 12.3 g on 11/06/2019. However, during subsequent followup it had shown gradual decline. At his follow-up visit on 01/11/2020 I did opt to stop his treatment. At that point he was having worsening fatigue and anorexia, for which he was started on a trial of low-dose prednisone. He is seen for a follow-up visit. He has been feeling much better on the prednisone, though he says it does make him grumpy and sometimes irritable. However, he has noted improvement in his energy and activity tolerance. He is able to do light work. ECOG score is 1. His appetite is better. He does not have fever or night sweats. He has shortness of breath and cough. He does not complain of chest pain. He has no GI or complaints. He currently has no significant joint or bone pain. He occasionally has headache and he sometimes gets lightheaded. He has had several episodes of muscle cramping in his left hand. Medications: Aleve 1 Capsule (of 220 mg) Oral PRN, Aspirin 1 Tablet (of 81 mg) Oral daily, Coreg 0.5 Tablet (of 6.25 mg) Oral daily PRN, Gabapentin 2 Capsule (of 300 mg) Oral at bedtime PRN, HYDROcodone-Acetaminophen 1 - 2 Tablet (of 5-325 mg) Oral q 4 hours PRN, Proventil HFA 1 puff(s) (of 108 (90 base) mcg/act) Aerosol, solution Inhalation PRN, Simvastatin 0.5 Tablet (of 40 mg) Oral daily Allergies: No Known Allergies. Review of Systems: Constitutional - He is feeling much better since being on the prednisone. His energy is improved, and he is able to do light work. His appetite is good but his weight is down about 5 pounds. No fever, night sweats, or hot flashes. ECOG score is 1, ENMT - No sinus congestion/drainage. No mouth sores. No sore throat or difficulty swallowing, Hematologic/Lymphatic - He bruises easily, Respiratory - He gets short of breath with exertion. He has a chronic smoker's cough. No pleuritic pain or hemoptysis, Cardiovascular - No angina pain. No palpitations, Gastrointestinal - No nausea or vomiting. No heartburn or acid reflux. No diarrhea or constipation. No blood in the stool or black stools, Genitourinary (M) - No dysuria or hematuria. No urinary frequency. No urgency or incontinence, Musculoskeletal - No significant joint or bone pain, Integumentary - No skin complications, Neurologic - He has occasional headaches. He sometimes gets lightheaded. He has been having cramping in his left hand. No other focal neurologic symptoms, Psychiatric - No anxiety or depression, but he has been grumpy or irritable on the prednisone. No insomnia. Vital Signs: Performed on Feb 07, 2020 09:05 Height - 68.00 in Weight - 157.2 lbs (LOW) BSA - 1.85 sq.m BMI - 23.90 Temperature - 98.2 F (LOW) Pulse - 64 /min Respiration - 20 /min BP - 137/68 mm(hg) O2 Sat - 98 % Pain - 0 Physical Examination: Constitutional - He looks better generally, Eyes - Sclerae nonicteric. Conjunctivae clear, ENMT - No lesions noted in the oral cavity, Hematologic/Lymphatic - No cervical, clavicular, or axillary adenopathy, Respiratory - Lungs sound clear with diminished air movement bilaterally, Cardiovascular - Heart rhythm is regular. There is no murmur, gallop, or rub noted, Abdomen - Soft. Liver and spleen are not enlarged. There is no abdominal mass or ascites noted and there is no inguinal adenopathy, Extremities - No edema. There are scattered, small purpuric lesions, Integumentary - No skin eruption, Neurologic - No focal neurologic deficits noted. Lab/Imaging: CBC shows hemoglobin 10.2 g, white blood cell count 2800, and platelet count 222,000. Comprehensive metabolic profile is unremarkable except for slightly elevated total bilirubin 1.5 mg/dL. Impression: 1. Patient with moderately severe, macrocytic anemia and mild neutropenia. Bone marrow aspirate/biopsy on 09/01/2018 showed findings consistent with myelodysplastic syndrome, specifically MDS with ring sideroblasts. His IPSS-R calculated to 3.0, low risk. His heme next generation sequencing study showed presence of TET2 and ASXL1 mutations, both of which may be associated with high response rates to hypomethylating agents. 2. He also had significantly elevated transferrin saturation and ferritin levels. 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 His other medical illnesses include: 3. Coronary artery disease with previous angioplasty/stent placement. 4. Dyslipidemia. 5. COPD. 6. His records indicate a history of chronic inflammatory demyelinating polyneuropathy. In December 2018 he began a trial of therapy with Revlimid at 10 mg daily on a 21/ day schedule. Within one week he had a precipitous drop in his hemoglobin to 5.5 g. Associated with that, he had developed lower extremity edema and he most likely had a component of congestive heart failure. He improved following transfusion of 3 units of PRBC, though during subsequent follow-up he continued to have somewhat marginal performance status. He has remained transfusion dependent, requiring transfusion approximately on a monthly basis. Associated with that, there was a significant increase in his serum ferritin level. As of July 2019 it had increased to over 2000 ng/mL, and at that point he did start treatment with Jadenu. During subsequent follow-up his hemoglobin had stabilized in the range of 9 to 10 g. As of 10/23/2019 he began a trial of therapy with luspatercept at 1 mg/kg by subcutaneous injection every 3 weeks. He tolerated the initial injection with no adverse effects. He initially appeared to have a good response with hemoglobin increasing to 12.3 g on 11/06/2019. However, during subsequent follow-up it had declined gradually. He also developed a mildly elevated total bilirubin level. As of his follow-up visit on 01/11/2020 his hemoglobin had decreased to 6.8 g. He was transfused PRBC and I opted to stop the luspatercept. At that point he had reported worsening fatigue and anorexia, and I did have him start low-dose prednisone. He appears to be showing a good clinical response, and thus far his hemoglobin/hematocrit levels have remained adequate. Plan: He will continue prednisone at 10 mg daily. I will recheck a blood count in 2 weeks, and he can be transfused again as needed. He will be scheduled for a follow-up visit in 4 weeks. Signed By: Jordan Coffey M.D. <<Signature on File>>
== END 2020-02-12 23:59 | disposition home or self-care (01) ==
LOC: ONCMED 06:43
PROVIDERS: Visit Provider Internal Medicine Medical Oncology
DX: E83.111 Hemochromatosis due to repeated red blood cell transfusions (principal); D46.1 Refractory anemia with ring sideroblasts; I25.10 Atherosclerotic heart disease of native coronary artery without angina pectoris; E78.5 Hyperlipidemia, unspecified; G61.81 Chronic inflammatory demyelinating polyneuritis
CPT/HCPCS: 36415; 80053; 82728; 83540; 83550; 85025; 99214

== ENCOUNTER 2020-03-06 06:39 | Outpatient (RCR) | payer OTHER, SELFPAY ==
[2020-02-21 13:04] LABS: Basophils % 0.7 %; Eosinophils # 0.1 10^3/uL (0.0-0.8); Hematocrit 28.9 % (42.0-52.0); Hemoglobin 9.3 g/dL (11.7-16.6); Lymphocytes # 1.7 10^3/uL (0.8-4.8); Lymphocytes % 41.3 %; Mean Corpuscular HGB Conc 32.2 g/dL (30.0-36.0); Mean Corpuscular Hemoglobin 31.3 pg (28.0-34.0); Mean Corpuscular Volume 97.3 fL (80-94); Mean Platelet Volume 11.5 fL (7.4-10.4); Monocytes # 0.3 10^3/uL (0.2-0.9); Monocytes % 6.7 %; Neutrophils # 1.99 10^3/uL (1.8-7.7); Neutrophils % 49.3 %; Nucleated Red Blood Cells % 0 %; Platelet Count 202 10^3/cmm (130-400); Red Blood Count 2.97 10^6/uL (4.1-5.3); Red Cell Distribution Width 21.2 % (12.1-15.1)
[2020-03-05 13:56] LABS: Basophils % 1.2 %; Eosinophils # 0.1 10^3/uL (0.0-0.8); Eosinophils % 2.1 %; Hematocrit 30.1 % (42.0-52.0); Hemoglobin 9.7 g/dL (11.7-16.6); Lymphocytes # 1.2 10^3/uL (0.8-4.8); Lymphocytes % 35.6 %; Mean Corpuscular HGB Conc 32.2 g/dL (30.0-36.0); Mean Corpuscular Hemoglobin 31.6 pg (28.0-34.0); Mean Platelet Volume 12.5 fL (7.4-10.4); Monocytes # 0.3 10^3/uL (0.2-0.9); Monocytes % 7.7 %; Neutrophils # 1.73 10^3/uL (1.8-7.7); Neutrophils % 53.1 %; Nucleated Red Blood Cells % 0 %; Platelet Count 256 10^3/cmm (130-400); Red Blood Count 3.07 10^6/uL (4.1-5.3); Red Cell Distribution Width 21.9 % (12.1-15.1); White Blood Count 3.3 10^3/uL (4.0-10.0)
[2020-03-05 14:19] LABS: Alanine Aminotransferase 16 U/L (0-41); Albumin Level 4.9 g/dL (3.5-5.2); Alkaline Phosphatase 69 IU/L (40-130); Anion Gap 16.1 (5-19); Aspartate Amino Transferase 21 U/L (0-40); Blood Urea Nitrogen 12 mg/dL (8-23); Calcium 9.6 mg/dL (8.5-10.5); Carbon Dioxide 26 mmol/L (22-29); Chloride 97 mmol/L (98-107); Glomerular Filtration Rate 111.8 mL/min (90-130); Glucose 398 mg/dL (65-115); Lactate Dehydrogenase 118 U/L (135-225); Osmolality Calculated 293 mOsm/kg (285-295); Potassium 4.1 mmol/L (3.5-5.1); Sodium 135 mmol/L (136-145); Total Bilirubin 1.7 mg/dL (0.15-1.2); Total Protein 6.9 g/dL (6.6-8.7)
--- NOTE | 2020-03-06 11:01 | ONC FU_ITS ---
Dr. Coffey Patient Follow-Up Note Patient: Jose Chamberlain Unit #: [id number]: 1950 Dicatated By: Jordan Coffey M.D.Date of Visit:Mar 06, 2020 Onc Med Follow-up/Prog Note Chief Complaint: Myelodysplastic syndrome. History of Present Illness: This is a 69 year-old man with myelodysplastic syndrome (MDS with ring sideroblasts), low risk. He has transfusion dependent anemia. He also has hemochromatosis. In 2016 he was diagnosed with hemochromatosis based on elevated iron and ferritin levels. According to the patient's daughter, he was phlebotomized twice for it. I had seen him initially on 02/06/2018 after he had been found to be anemic. The available records included a CBC from 01/11/2018 showing low hemoglobin at 8.3 g with white blood cell count 3300 and platelet count 322,000. Renal function at that time was normal with BUN 9 and creatinine 0.84 mg/dL. The liver enzymes also were normal. The total bilirubin was slightly elevated at 1.6 mg/dL. The serum iron was elevated at 198 mcg/dL with transferrin saturation 97.2%. Ferritin was elevated at 1301.0 ng/mL. His laboratory evaluation in January 2018 included CBC showing hemoglobin 10.5 g with white blood cell count 3000 and platelet count 229,000. The red cell indices were macrocytic. The sedimentation rate was normal at 10 mm/hour. Comprehensive metabolic profile was unremarkable except for mildly elevated total bilirubin at 1.4 mg/dL. LDH was normal at 148 U/L. B12 level was normal at 541 pg/mL. His serum iron was elevated at 219 mcg/dL with transferrin saturation 89.6%. The ferritin was elevated at 1359 ng/mL. 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 At the time, I felt that he probably would require bone marrow aspiration/biopsy, but he had failed to return for follow-up. His repeat laboratory studies done through the [facility] on 08/14/2018 included CBC showing hemoglobin down to 7.6 g with hematocrit 23%. The red cell indices were macrocytic with MCV 113 and MCH 36. The white blood cell count was 3300 and the platelet count was 278,000. The uncorrected reticulocyte count was 2.5%. LDH was normal 158 U/L. A haptoglobin level was requested, but the result was not included. TSH was slightly low at 0.31 mIU/mL. Serum iron studies show transferrin saturation 86.1%. PSA level was 1.00 ng/mL. CEA level was 1.95 ng/mL. I had seen him for a follow-up visit on 08/24/2018, and at that point I did recommend bone marrow aspiration/biopsy. I also began empiric steroid therapy for muscle pain. He underwent bone marrow aspiration/biopsy on 09/01/2018. The marrow was hypercellular, estimated at 100%. 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 There was profound erythroid hyperplasia with associated dyserythropoiesis. The bone marrow differential included 2% blasts. CD34 positive blasts and CD 117 positive precursors were slightly increased estimated at 3% and 5% of the cellularity respectively. Iron stores were only 1+, but numerous ring sideroblasts were present. The FISH panel for MDS was unrevealing, and the standard chromosome analysis was normal. His further evaluation included an erythropoietin level, which was relatively high 143 mIU/mL. He was seen for a follow-up visit on 09/18/2018. He had noticed some improvement in his muscle pain with the prednisone, but it was not dramatic. At that point I had requested further evaluation with a [facility] next generation sequencing study. 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 He also was found to be MSI stable with low mutation burden. He was seen for a follow-up visit on 12/20/2018. At that time his hemoglobin was 8.8 g with white blood cell count 2800 and platelet count 276,000. He continued to complain of severe fatigue. With the declining blood counts and performance status, I had recommended a trial of therapy with Revlimid at 10 mg daily on a 21 day schedule. Within one week of starting the medication, his son called reported that he had developed severe weakness, shortness of breath, and lower extremity edema. There was a precipitous drop in his hemoglobin, to 5.5 g with white blood cell count stable at 3300 and platelet count stable at 210,000. He had no symptoms to suggest acute blood loss. Chest x-ray showed COPD and possible edema, but there was no acute infiltrate. He was given IV Lasix and he began outpatient transfusion of PRBC. His shortness of breath, though, worsened, and he was placed in the hospital on overnight observation to complete the transfusion. He was able to be discharged the following day. He received a total of 3 units of PRBC. His Revlimid was put on hold. I had seen him for a follow-up visit on 01/19/2019. He had improved significantly following the transfusions, though at that time he did have symptoms of COPD exacerbation, for which he was given antibiotic coverage with Levaquin. During subsequent follow-up he had remained transfusion dependent, requiring transfusion pretty regularly on a monthly basis. He was most recently transfused on 06/21/2019 after his hemoglobin had dropped back down to 6.8 g. In the July 2019 he began treatment with Jadenu for iron overload, as his ferritin level had increased to over 2000 ng/mL. His hemoglobin had subsequently stabilized in the range of 9 to 10 g. His other medical illnesses include coronary artery disease, dyslipidemia, and COPD. 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 He has a history of smoking for more than 40 years, in the range of 1 to 1 1/2 packs of cigarettes daily. INTERIM HISTORY: On 10/23/2019 he began a trial of therapy with luspatercept at 1 mg/kg by subcutaneous injection every 3 weeks. He initially appeared to have a good response, with hemoglobin increasing to 12.3 g on 11/06/2019. However, during subsequent followup it had shown gradual decline. At his follow-up visit on 01/11/2020 I did opt to stop his treatment. At that point he was having worsening fatigue and anorexia, for which he was started on a trial of low-dose prednisone. He had symptomatic improvement with it, but it did make him feel grumpy. He is seen for a follow-up visit. He continues to complain that he feels pooped out and tired all the time. He complains that he has no get up and go. He is doing light work, though. His ECOG score is 1. He has good appetite on the prednisone. He does not have fever or night sweats. He says his breathing is rough at times. He has cough which is productive of cloudy sputum. He has not been having chest pain. He has no GI/ complaints other than he tends to fluctuate between having runny and firm stools. He has not been aware of any blood in the stool. He has joint pain, which comes and goes. Yesterday his hips were hurting, but not today. He does not complain of headache. He sometimes has dizziness. He has no numbness or tingling, but he has been having muscle cramps in his hands. Medications: Aleve 1 Capsule (of 220 mg) Oral PRN, Aspirin 1 Tablet (of 81 mg) Oral daily, Coreg 0.5 Tablet (of 6.25 mg) Oral daily PRN, Gabapentin 2 Capsule (of 300 mg) Oral at bedtime PRN, HYDROcodone-Acetaminophen 1 - 2 Tablet (of 5-325 mg) Oral q 4 hours PRN, Proventil HFA 1 puff(s) (of 108 (90 base) mcg/act) Aerosol, solution Inhalation PRN, Simvastatin 0.5 Tablet (of 40 mg) Oral daily Allergies: No Known Allergies. Review of Systems: Constitutional - He feels pooped out and tired all the time. He says he has no get up and go. He is able to do light work. His appetite is good. He has no fever or night sweats. ECOG score is 1, ENMT - He has sinus congestion/drainage. No mouth sores. No sore throat or difficulty swallowing, Hematologic/Lymphatic - He has easy bruising, but no bleeding, Respiratory - He has shortness of breath. He has cough productive of cloudy sputum. No pleuritic pain or hemoptysis, Cardiovascular - No angina pain. No palpitations, Gastrointestinal - No nausea or vomiting. No heartburn or acid reflux. His bowels vary between running and firm. No blood in the stool or black stools, Genitourinary (M) - No dysuria or hematuria. No urinary frequency. No urgency or incontinence, Musculoskeletal - He has joint pain. It comes and goes. Yesterday it was bothering him in his hips, but not today, Integumentary - No skin rash, Neurologic - No headache. He sometimes has dizziness. No numbness or tingling, but he has having muscle cramping in his hands. No other focal neurologic symptoms, Psychiatric - No anxiety or depression. No insomnia. Vital Signs: Performed on Mar 06, 2020 10:20 Height - 68.00 in Weight - 155.6 lbs (LOW) BSA - 1.84 sq.m BMI - 23.66 Temperature - 98.0 F (LOW) Pulse - 68 /min Respiration - 20 /min BP - 120/60 mm(hg) O2 Sat - 98 % Pain - 0 Physical Examination: Constitutional - He appears chronically ill, Eyes - Sclerae nonicteric. Conjunctivae clear, ENMT - No lesions noted in the oral cavity, Hematologic/Lymphatic - No cervical, clavicular, or axillary adenopathy, Respiratory - Lungs show diminished air movement and slightly coarse breath sounds bilaterally, Cardiovascular - Heart rhythm is regular. There is no murmur, gallop, or rub noted, Abdomen - Soft. Liver and spleen are not enlarged. There is no abdominal mass or ascites noted and there is no inguinal adenopathy, Extremities - No edema, Integumentary - No skin eruption, Neurologic - No focal neurologic deficits noted. Lab/Imaging: CBC shows hemoglobin 9.7 g, white blood cell count 3300, and platelet count 256,000. Comprehensive metabolic profile shows just slightly elevated total bilirubin of 1.7 mg/dL. The nonfasting blood sugar is significantly elevated. Liver enzymes are normal. Impression: 1. Patient with moderately severe, macrocytic anemia and mild neutropenia. Bone marrow aspirate/biopsy on 09/01/2018 showed findings consistent with myelodysplastic syndrome, specifically MDS with ring sideroblasts. His IPSS-R calculated to 3.0, low risk. His heme next generation sequencing study showed presence of TET2 and ASXL1 mutations, both of which may be associated with high response rates to hypomethylating agents. 2. He also had significantly elevated transferrin saturation and ferritin levels. 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 His other medical illnesses include: 3. Coronary artery disease with previous angioplasty/stent placement. 4. Dyslipidemia. 5. COPD. 6. His records indicate a history of chronic inflammatory demyelinating polyneuropathy. In December 2018 he began a trial of therapy with Revlimid at 10 mg daily on a 21/28 day schedule. Within one week he had a precipitous drop in his hemoglobin to 5.5 g. Associated with that, he had developed lower extremity edema and he most likely had a component of congestive heart failure. He improved following transfusion of 3 units of PRBC, though during subsequent follow-up he continued to have somewhat marginal performance status. He has remained transfusion dependent, requiring transfusion approximately on a monthly basis. Associated with that, there was a significant increase in his serum ferritin level. As of July 2019 it had increased to over 2000 ng/mL, and at that point he did start treatment with Jadenu. During subsequent follow-up his hemoglobin had stabilized in the range of 9 to 10 g. As of 10/23/2019 he began a trial of therapy with luspatercept at 1 mg/kg by subcutaneous injection every 3 weeks. He tolerated the initial injection with no adverse effects. He initially appeared to have a good response with hemoglobin increasing to 12.3 g on 11/06/2019. However, during subsequent follow-up it had declined gradually. He also developed a mildly elevated total bilirubin level. As of his follow-up visit on 01/11/2020 his hemoglobin had decreased to 6.8 g. He was transfused PRBC and I opted to stop the luspatercept. At that point he had reported worsening fatigue and anorexia, and I did have him start low-dose prednisone. He has been feeling somewhat better generally on the low-dose prednisone. He continues to have significant fatigue, but his blood counts have remained adequate with no further transfusion. He has now developed significantly elevated blood sugar, undoubtedly from the prednisone. Plan: The prednisone will be decreased to 5 mg daily. I will see if we can get someone to check his blood sugars at home, but that may be problematic. At this point I will continue to monitor his blood count every 2 weeks. He will be transfused again as needed. I will see him again in 2 months, or sooner as needed. Signed By: Jordan Coffey M.D. <<Signature on File>>
== END 2020-03-14 23:59 | disposition home or self-care (01) ==
LOC: ONCMED 06:39
PROVIDERS: Visit Provider Internal Medicine Medical Oncology
DX: D46.1 Refractory anemia with ring sideroblasts (principal); E83.111 Hemochromatosis due to repeated red blood cell transfusions; I25.10 Atherosclerotic heart disease of native coronary artery without angina pectoris; E78.5 Hyperlipidemia, unspecified; J44.9 Chronic obstructive pulmonary disease, unspecified; G61.81 Chronic inflammatory demyelinating polyneuritis; Z79.899 Other long term (current) drug therapy; Z79.82 Long term (current) use of aspirin; Z79.891 Long term (current) use of opiate analgesic; Z79.52 Long term (current) use of systemic steroids; Z95.5 Presence of coronary angioplasty implant and graft
CPT/HCPCS: 36415; 80053; 83615; 85025; 99214

== ENCOUNTER 2020-04-02 12:29 | Outpatient (RCR) | payer OTHER, SELFPAY ==
[2020-03-19 14:17] LABS: Basophils % 0.8 %; Eosinophils # 0.1 10^3/uL (0.0-0.8); Eosinophils % 2.1 %; Hematocrit 26.7 % (42.0-52.0); Hemoglobin 8.7 g/dL (11.7-16.6); Lymphocytes # 1.6 10^3/uL (0.8-4.8); Mean Corpuscular HGB Conc 32.6 g/dL (30.0-36.0); Mean Corpuscular Hemoglobin 32.6 pg (28.0-34.0); Mean Platelet Volume 12.1 fL (7.4-10.4); Monocytes # 0.3 10^3/uL (0.2-0.9); Monocytes % 6.6 %; Neutrophils # 1.79 10^3/uL (1.8-7.7); Neutrophils % 47.2 %; Nucleated Red Blood Cells % 0.5 %; Platelet Count 273 10^3/cmm (130-400); Red Blood Count 2.67 10^6/uL (4.1-5.3); White Blood Count 3.8 10^3/uL (4.0-10.0)
[2020-04-02 14:28] LABS: Basophils % 0.7 %; Eosinophils # 0.1 10^3/uL (0.0-0.8); Eosinophils % 3.1 %; Hematocrit 29.3 % (42.0-52.0); Hemoglobin 9.2 g/dL (11.7-16.6); Lymphocytes # 1.1 10^3/uL (0.8-4.8); Lymphocytes % 39.4 %; Mean Corpuscular HGB Conc 31.4 g/dL (30.0-36.0); Mean Corpuscular Hemoglobin 32.4 pg (28.0-34.0); Mean Corpuscular Volume 103.2 fL (80-94); Mean Platelet Volume 12.5 fL (7.4-10.4); Monocytes # 0.2 10^3/uL (0.2-0.9); Monocytes % 5.9 %; Neutrophils # 1.45 10^3/uL (1.8-7.7); Neutrophils % 50.6 %; Nucleated Red Blood Cells % 0 %; Platelet Count 202 10^3/cmm (130-400); Red Blood Count 2.84 10^6/uL (4.1-5.3); White Blood Count 2.9 10^3/uL (4.0-10.0)
== END 2020-04-14 23:59 | disposition home or self-care (01) ==
LOC: ONCMED 12:29
PROVIDERS: Visit Provider Internal Medicine Medical Oncology
DX: E83.111 Hemochromatosis due to repeated red blood cell transfusions (principal); D46.1 Refractory anemia with ring sideroblasts
CPT/HCPCS: 36415; 85025

== ENCOUNTER 2020-04-16 11:40 | Outpatient (RCR) | payer OTHER, SELFPAY ==
[2020-04-16 14:47] LABS: Basophils % 0.8 %; Eosinophils # 0.1 10^3/uL (0.0-0.8); Eosinophils % 1.8 %; Hematocrit 27.7 % (42.0-52.0); Lymphocytes # 1.3 10^3/uL (0.8-4.8); Lymphocytes % 33.5 %; Mean Corpuscular HGB Conc 32.5 g/dL (30.0-36.0); Mean Corpuscular Hemoglobin 33.7 pg (28.0-34.0); Mean Corpuscular Volume 103.7 fL (80-94); Mean Platelet Volume 12.3 fL (7.4-10.4); Monocytes # 0.3 10^3/uL (0.2-0.9); Monocytes % 7.1 %; Neutrophils # 2.15 10^3/uL (1.8-7.7); Neutrophils % 56.3 %; Nucleated Red Blood Cells % 0.8 %; Platelet Count 219 10^3/cmm (130-400); Red Blood Count 2.67 10^6/uL (4.1-5.3); Red Cell Distribution Width 20.8 % (12.1-15.1); White Blood Count 3.8 10^3/uL (4.0-10.0)
== END 2020-05-14 07:16 | disposition home or self-care (01) ==
LOC: ONCMED 11:40
PROVIDERS: Visit Provider Internal Medicine Medical Oncology
DX: E83.111 Hemochromatosis due to repeated red blood cell transfusions (principal); D46.1 Refractory anemia with ring sideroblasts
CPT/HCPCS: 85025

== ENCOUNTER 2020-05-15 10:50 | Outpatient (CLI) | payer OTHER, SELFPAY ==
[2020-05-15 13:04] LABS: Basophils % 0.8 %; Eosinophils % 1.1 %; Hematocrit 29.5 % (42.0-52.0); Hemoglobin 9.6 g/dL (11.7-16.6); Lymphocytes # 1.3 10^3/uL (0.8-4.8); Mean Corpuscular HGB Conc 32.5 g/dL (30.0-36.0); Mean Corpuscular Hemoglobin 34.2 pg (28.0-34.0); Mean Platelet Volume 12.8 fL (7.4-10.4); Monocytes # 0.2 10^3/uL (0.2-0.9); Monocytes % 4.1 %; Neutrophils # 2.13 10^3/uL (1.8-7.7); Neutrophils % 58.7 %; Nucleated Red Blood Cells % 0 %; Platelet Count 215 10^3/cmm (130-400); Red Blood Count 2.81 10^6/uL (4.1-5.3); Red Cell Distribution Width 22.1 % (12.1-15.1); White Blood Count 3.6 10^3/uL (4.0-10.0)
[2020-05-15 13:18] LABS: Alanine Aminotransferase 14 U/L (0-41); Albumin Level 4.7 g/dL (3.5-5.2); Alkaline Phosphatase 81 IU/L (40-130); Anion Gap 14.2 (5-19); Aspartate Amino Transferase 23 U/L (0-40); Blood Urea Nitrogen 9 mg/dL (8-23); Calcium 9.6 mg/dL (8.5-10.5); Carbon Dioxide 26 mmol/L (22-29); Chloride 96 mmol/L (98-107); Globulin 2.6 g/dL (1.3-4.6); Glomerular Filtration Rate 95.6 mL/min (90-130); Glucose 406 mg/dL (65-115); Lactate Dehydrogenase 152 U/L (135-225); Osmolality Calculated 290 mOsm/kg (285-295); Potassium 4.2 mmol/L (3.5-5.1); Sodium 132 mmol/L (136-145); Total Bilirubin 1.7 mg/dL (0.15-1.2); Total Protein 7.3 g/dL (6.6-8.7)
[2020-05-15 13:38] LABS: Ferritin 852 ng/mL (30-400); Iron 62 ug/dL (59-158); Percent Saturation 29.1 % (20-50); Total Iron Binding Capacity 213 mcg/dl; Unsaturated Iron Binding 151 ug/dL (112-347)
== END 2020-05-15 10:51 | disposition home or self-care (01) ==
LOC: ONCMED 13:30
PROVIDERS: Visit Provider Internal Medicine Medical Oncology
DX: E83.111 Hemochromatosis due to repeated red blood cell transfusions (principal); D46.1 Refractory anemia with ring sideroblasts
CPT/HCPCS: 80053; 82728; 83540; 83550; 83615; 85025

== ENCOUNTER 2020-05-29 11:05 | Outpatient (CLI) | payer OTHER, SELFPAY ==
[2020-05-29 13:14] LABS: Basophils % 0.6 %; Eosinophils % 1.2 %; Hematocrit 23.8 % (42.0-52.0); Hemoglobin 7.6 g/dL (11.7-16.6); Lymphocytes # 1.2 10^3/uL (0.8-4.8); Mean Corpuscular HGB Conc 31.9 g/dL (30.0-36.0); Mean Corpuscular Hemoglobin 33.8 pg (28.0-34.0); Mean Corpuscular Volume 105.8 fL (80-94); Mean Platelet Volume 12.2 fL (7.4-10.4); Monocytes # 0.2 10^3/uL (0.2-0.9); Monocytes % 5.6 %; Nucleated Red Blood Cells % 0.6 %; Platelet Count 204 10^3/cmm (130-400); Red Blood Count 2.25 10^6/uL (4.1-5.3); Red Cell Distribution Width 21.9 % (12.1-15.1); White Blood Count 3.2 10^3/uL (4.0-10.0)
[2020-05-29 13:37] LABS: Ferritin 645 ng/mL (30-400); Iron 128 ug/dL (59-158); Lactate Dehydrogenase 141 U/L (135-225); Percent Saturation 73.5 % (20-50); Total Iron Binding Capacity 174 mcg/dl; Unsaturated Iron Binding 46 ug/dL (112-347)
== END 2020-05-29 11:06 | disposition home or self-care (01) ==
LOC: ONCMED 12:51
PROVIDERS: Visit Provider Internal Medicine Medical Oncology
DX: E83.111 Hemochromatosis due to repeated red blood cell transfusions (principal); D46.1 Refractory anemia with ring sideroblasts
CPT/HCPCS: 82728; 83540; 83550; 83615; 85025

== ENCOUNTER 2020-06-12 05:19 | Outpatient (RCR) | payer OTHER, SELFPAY ==
[2020-06-02 14:53] LABS: Basophils % 0.9 %; Eosinophils # 0.1 10^3/uL (0.0-0.8); Eosinophils % 1.5 %; Hematocrit 25.5 % (42.0-52.0); Lymphocytes # 1.5 10^3/uL (0.8-4.8); Lymphocytes % 43.7 %; Mean Corpuscular HGB Conc 31.4 g/dL (30.0-36.0); Mean Corpuscular Hemoglobin 34.2 pg (28.0-34.0); Mean Platelet Volume 12.4 fL (7.4-10.4); Monocytes # 0.2 10^3/uL (0.2-0.9); Neutrophils % 46.6 %; Nucleated Red Blood Cells % 0.6 %; Platelet Count 228 10^3/cmm (130-400); Red Blood Count 2.34 10^6/uL (4.1-5.3); Red Cell Distribution Width 22.9 % (12.1-15.1); White Blood Count 3.4 10^3/uL (4.0-10.0)
[2020-06-03] MEDS: acetaminophen 325 mg Tablet 650 MG PO (09:20)
[2020-06-03] MEDS: diphenhydrAMINE 25 mg Capsule PO (09:20)
[2020-06-03] MEDS: sodium chloride 0.9% 250 ML 999 ML IV (09:25)
[2020-06-03] MEDS: FUROsemide 10 mg/mL SDV 2mL 20 MG IV (12:30)
[2020-06-11 13:43] LABS: Basophils % 0.9 %; Eosinophils # 0.1 10^3/uL (0.0-0.8); Eosinophils % 1.5 %; Hematocrit 35.5 % (42.0-52.0); Hemoglobin 11.3 g/dL (11.7-16.6); Lymphocytes # 1.5 10^3/uL (0.8-4.8); Lymphocytes % 45.7 %; Mean Corpuscular HGB Conc 31.8 g/dL (30.0-36.0); Mean Corpuscular Hemoglobin 33.8 pg (28.0-34.0); Mean Corpuscular Volume 106.3 fL (80-94); Mean Platelet Volume 12.9 fL (7.4-10.4); Monocytes # 0.2 10^3/uL (0.2-0.9); Monocytes % 6.1 %; Neutrophils # 1.48 10^3/uL (1.8-7.7); Neutrophils % 45.5 %; Nucleated Red Blood Cells % 0 %; Platelet Count 171 10^3/cmm (130-400); Red Blood Count 3.34 10^6/uL (4.1-5.3); Red Cell Distribution Width 22.1 % (12.1-15.1); White Blood Count 3.3 10^3/uL (4.0-10.0)
[2020-06-11 14:08] LABS: Alanine Aminotransferase 18 U/L (0-41); Albumin Level 4.7 g/dL (3.5-5.2); Alkaline Phosphatase 77 IU/L (40-130); Anion Gap 12.4 (5-19); Aspartate Amino Transferase 27 U/L (0-40); Blood Urea Nitrogen 14 mg/dL (8-23); Calcium 9.4 mg/dL (8.5-10.5); Carbon Dioxide 28 mmol/L (22-29); Chloride 99 mmol/L (98-107); Globulin 2.4 g/dL (1.3-4.6); Glomerular Filtration Rate 133.2 mL/min (90-130); Glucose 158 mg/dL (65-115); Lactate Dehydrogenase 161 U/L (135-225); Osmolality Calculated 284 mOsm/kg (285-295); Potassium 4.4 mmol/L (3.5-5.1); Sodium 135 mmol/L (136-145); Total Bilirubin 3.8 mg/dL (0.15-1.2); Total Protein 7.1 g/dL (6.6-8.7)
[2020-06-11 14:28] LABS: Ferritin 1511 ng/mL (30-400)
[2020-06-11 15:57] LABS: Iron 245 ug/dL (59-158); Total Iron Binding Capacity < 1 mcg/dl
--- NOTE | 2020-06-16 07:11 | ONC FU_ITS ---
Dr. Coffey Patient Follow-Up Note Patient: Jose Chamberlain Unit #: [id number]: 1950 Dicatated By: Jordan Coffey M.D.Date of Visit:Jun 12, 2020 Onc Med Follow-up/Prog Note Chief Complaint: Myelodysplastic syndrome. History of Present Illness: This is a 70 year-old man with myelodysplastic syndrome (MDS with ring sideroblasts), low risk. He has transfusion dependent anemia. He also has hemochromatosis. In 2016 he was diagnosed with hemochromatosis based on elevated iron and ferritin levels. According to the patient's daughter, he was phlebotomized twice for it. I had seen him initially on 02/06/2018 after he had been found to be anemic. The available records included a CBC from 01/11/2018 showing low hemoglobin at 8.3 g with white blood cell count 3300 and platelet count 322,000. Renal function at that time was normal with BUN 9 and creatinine 0.84 mg/dL. The liver enzymes also were normal. The total bilirubin was slightly elevated at 1.6 mg/dL. The serum iron was elevated at 198 mcg/dL with transferrin saturation 97.2%. Ferritin was elevated at 1301.0 ng/mL. His laboratory evaluation in January 2018 included CBC showing hemoglobin 10.5 g with white blood cell count 3000 and platelet count 229,000. The red cell indices were macrocytic. The sedimentation rate was normal at 10 mm/hour. Comprehensive metabolic profile was unremarkable except for mildly elevated total bilirubin at 1.4 mg/dL. LDH was normal at 148 U/L. B12 level was normal at 541 pg/mL. His serum iron was elevated at 219 mcg/dL with transferrin saturation 89.6%. The ferritin was elevated at 1359 ng/mL. 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 At the time, I felt that he probably would require bone marrow aspiration/biopsy, but he had failed to return for follow-up. His repeat laboratory studies done through the [facility] on 08/14/2018 included CBC showing hemoglobin down to 7.6 g with hematocrit 23%. The red cell indices were macrocytic with MCV 113 and MCH 36. The white blood cell count was 3300 and the platelet count was 278,000. The uncorrected reticulocyte count was 2.5%. LDH was normal 158 U/L. A haptoglobin level was requested, but the result was not included. TSH was slightly low at 0.31 mIU/mL. Serum iron studies show transferrin saturation 86.1%. PSA level was 1.00 ng/mL. CEA level was 1.95 ng/mL. I had seen him for a follow-up visit on 08/24/2018, and at that point I did recommend bone marrow aspiration/biopsy. I also began empiric steroid therapy for muscle pain. He underwent bone marrow aspiration/biopsy on 09/01/2018. The marrow was hypercellular, estimated at 100%. 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 There was profound erythroid hyperplasia with associated dyserythropoiesis. The bone marrow differential included 2% blasts. CD34 positive blasts and CD 117 positive precursors were slightly increased estimated at 3% and 5% of the cellularity respectively. Iron stores were only 1+, but numerous ring sideroblasts were present. The FISH panel for MDS was unrevealing, and the standard chromosome analysis was normal. His further evaluation included an erythropoietin level, which was relatively high 143 mIU/mL. He was seen for a follow-up visit on 09/18/2018. He had noticed some improvement in his muscle pain with the prednisone, but it was not dramatic. At that point I had requested further evaluation with a [facility] next generation sequencing study. 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 He also was found to be MSI stable with low mutation burden. He was seen for a follow-up visit on 12/20/2018. At that time his hemoglobin was 8.8 g with white blood cell count 2800 and platelet count 276,000. He continued to complain of severe fatigue. With the declining blood counts and performance status, I had recommended a trial of therapy with Revlimid at 10 mg daily on a 21 day schedule. Within one week of starting the medication, his son called reported that he had developed severe weakness, shortness of breath, and lower extremity edema. There was a precipitous drop in his hemoglobin, to 5.5 g with white blood cell count stable at 3300 and platelet count stable at 210,000. He had no symptoms to suggest acute blood loss. Chest x-ray showed COPD and possible edema, but there was no acute infiltrate. He was given IV Lasix and he began outpatient transfusion of PRBC. His shortness of breath, though, worsened, and he was placed in the hospital on overnight observation to complete the transfusion. He was able to be discharged the following day. He received a total of 3 units of PRBC. His Revlimid was put on hold. I had seen him for a follow-up visit on 01/19/2019. He had improved significantly following the transfusions, though at that time he did have symptoms of COPD exacerbation, for which he was given antibiotic coverage with Levaquin. During subsequent follow-up he had remained transfusion dependent, requiring transfusion pretty regularly on a monthly basis. He was most recently transfused on 06/21/2019 after his hemoglobin had dropped back down to 6.8 g. In the July 2019 he began treatment with Jadenu for iron overload, as his ferritin level had increased to over 2000 ng/mL. His hemoglobin had subsequently stabilized in the range of 9 to 10 g. His other medical illnesses include coronary artery disease, dyslipidemia, and COPD. 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 He has a history of smoking for more than 40 years, in the range of 1 to 1 1/2 packs of cigarettes daily. INTERIM HISTORY: On 10/23/2019 he began a trial of therapy with luspatercept at 1 mg/kg by subcutaneous injection every 3 weeks. He initially appeared to have a good response, with hemoglobin increasing to 12.3 g on 11/06/2019. However, during subsequent followup it had shown gradual decline. At his follow-up visit on 01/11/2020 I did opt to stop his treatment. At that point he was having worsening fatigue and anorexia, for which he was started on a trial of low-dose prednisone. He had symptomatic improvement with it, but it did make him feel grumpy. He is seen for a follow-up visit. He continues to complain that he is tired all the time, and he has been sleeping a lot. He is still able to do some light work. ECOG score is 1. Appetite is not good, and he has lost some weight. He does not have fever or night sweats. He has shortness of breath with activity, but he says his breathing is all right. He has a cigarette cough. He does not complain of chest pain. He is still having significant diarrhea even on the lower dosage of Jadenu. He has no other GI or complaints. He does complain that his joints are sore as hell. He is getting some benefit with his pain medication. He has a few headaches and he sometimes has dizziness. He has no focal neurologic symptoms. Medications: Aleve 1 Capsule (of 220 mg) Oral PRN, Aspirin 1 Tablet (of 81 mg) Oral daily, Coreg 0.5 Tablet (of 6.25 mg) Oral daily PRN, Gabapentin 2 Capsule (of 300 mg) Oral at bedtime PRN, HYDROcodone-Acetaminophen 1 - 2 Tablet (of 5-325 mg) Oral q 4 hours PRN, Proventil HFA 1 puff(s) (of 108 (90 base) mcg/act) Aerosol, solution Inhalation PRN, Simvastatin 0.5 Tablet (of 40 mg) Oral daily Allergies: No Known Allergies. Review of Systems: Constitutional - He feels tired and he complains that he has been sleeping a lot. He is able to do some light work. Appetite is not good, and he has lost weight. He does not have fever or night sweats. ECOG score is 1, ENMT - No sinus congestion/drainage. No mouth sores. No sore throat or difficulty swallowing, Hematologic/Lymphatic - He bruises and bleeds easily, Respiratory - He has shortness of breath with activity, but he says his breathing is all right. He has a cigarette cough. No pleuritic pain or hemoptysis, Cardiovascular - No angina pain. No palpitations, Gastrointestinal - No nausea or vomiting. No heartburn or acid reflux. He has been having diarrhea. No blood in the stool or black stools, Genitourinary (M) - No dysuria or hematuria. No urinary frequency. No urgency or incontinence, Musculoskeletal - He complains that his joints are sore as hell. He is getting some benefit with his pain medication, Integumentary - No skin rash, Neurologic - He has had a few headaches and he sometimes has dizziness. No numbness or tingling. No other focal neurologic symptoms, Psychiatric - No anxiety or depression. No insomnia. Vital Signs: Performed on Jun 12, 2020 15:23 Height - 68.00 in Weight - 149.6 lbs (LOW) BSA - 1.81 sq.m BMI - 22.75 Temperature - 97.8 F (LOW) Pulse - 71 /min Respiration - 24 /min BP - 120/70 mm(hg) O2 Sat - 98 % Pain - 0 Physical Examination: Constitutional - He appears somewhat weak generally, Eyes - Sclerae nonicteric. Conjunctivae clear, ENMT - No lesions noted in the oral cavity, Hematologic/Lymphatic - No cervical, clavicular, or axillary adenopathy, Respiratory - Lungs show diminished air movement with some coarse rales bilaterally, Cardiovascular - Heart rhythm is regular. There is no murmur, gallop, or rub noted, Abdomen - Soft. Liver and spleen are not enlarged. There is no abdominal mass or ascites noted and there is no inguinal adenopathy, Extremities - No edema, Integumentary - No skin eruption, Neurologic - No focal neurologic deficits noted. Lab/Imaging: CBC shows hemoglobin 11.3 g, white blood cell count 3300, and platelet count 171,000. Comprehensive metabolic profile is unremarkable except for mildly elevated total bilirubin at 3.8 mg/dL. The serum ferritin has increased to 1511 ng/mL. Impression: 1. Patient with moderately severe, macrocytic anemia and mild neutropenia. Bone marrow aspirate/biopsy on 09/01/2018 showed findings consistent with myelodysplastic syndrome, specifically MDS with ring sideroblasts. His IPSS-R calculated to 3.0, low risk. His heme next generation sequencing study showed presence of TET2 and ASXL1 mutations, both of which may be associated with high response rates to hypomethylating agents. 2. He also had significantly elevated transferrin saturation and ferritin levels. 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 His other medical illnesses include: 3. Coronary artery disease with previous angioplasty/stent placement. 4. Dyslipidemia. 5. COPD. 6. His records indicate a history of chronic inflammatory demyelinating polyneuropathy. In December 2018 he began a trial of therapy with Revlimid at 10 mg daily on a 21 day schedule. Within one week he had a precipitous drop in his hemoglobin to 5.5 g. Associated with that, he had developed lower extremity edema and he most likely had a component of congestive heart failure. He improved following transfusion of 3 units of PRBC, though during subsequent follow-up he continued to have somewhat marginal performance status. He has remained transfusion dependent, requiring transfusion approximately on a monthly basis. Associated with that, there was a significant increase in his serum ferritin level. As of July 2019 it had increased to over 2000 ng/mL, and at that point he did start treatment with Jadenu. During subsequent follow-up his hemoglobin had stabilized in the range of 9 to 10 g. As of 10/23/2019 he began a trial of therapy with luspatercept at 1 mg/kg by subcutaneous injection every 3 weeks. He tolerated the initial injection with no adverse effects. He initially appeared to have a good response with hemoglobin increasing to 12.3 g on 11/06/2019. However, during subsequent follow-up it had declined gradually. He also developed a mildly elevated total bilirubin level. As of his follow-up visit on 01/11/2020 his hemoglobin had decreased to 6.8 g. He was transfused PRBC and I opted to stop the luspatercept. At that point he had reported worsening fatigue and anorexia, and I did have him start low-dose prednisone. He felt somewhat better generally on the low-dose prednisone, though he has since then continued to have significant fatigue despite the fact that his blood counts have remained adequate and he has not required any additional transfusions. His serum ferritin level is significantly elevated, but he is not able to tolerate Jadenu even at a reduced dosage. Plan: At this point he will just be followed on observation/symptomatic management. He continues prednisone at 5 mg daily. He will now stop Jadenu. His other medications will remain the same. Blood counts will be monitored at 2-week intervals and he will be transfused as needed. I will see him again after the first of the year, or sooner as needed. He declines a flu shot. Signed By: Jordan Coffey M.D. <<Signature on File>>
== END 2020-06-14 23:59 | disposition home or self-care (01) ==
LOC: ONCMED 05:19
PROVIDERS: Nurse Practitioner; Visit Provider Internal Medicine Medical Oncology
DX: D46.1 Refractory anemia with ring sideroblasts (principal); E83.111 Hemochromatosis due to repeated red blood cell transfusions; J44.9 Chronic obstructive pulmonary disease, unspecified; I25.10 Atherosclerotic heart disease of native coronary artery without angina pectoris; E78.5 Hyperlipidemia, unspecified; G61.81 Chronic inflammatory demyelinating polyneuritis; F17.210 Nicotine dependence, cigarettes, uncomplicated; Z79.899 Other long term (current) drug therapy; Z79.52 Long term (current) use of systemic steroids; Z79.891 Long term (current) use of opiate analgesic; Z95.5 Presence of coronary angioplasty implant and graft
CPT/HCPCS: 36415; 80053; 82728; 83540; 83550; 83615; 85025; 86850; 86900; 86920; 99214; J1940; J7050; P9016

== ENCOUNTER 2020-07-09 10:40 | Outpatient (RCR) | payer OTHER, SELFPAY ==
[2020-06-26 12:08] LABS: Basophils % 0.6 %; Eosinophils % 1.2 %; Hematocrit 32.7 % (42.0-52.0); Hemoglobin 10.1 g/dL (11.7-16.6); Lymphocytes # 1.4 10^3/uL (0.8-4.8); Mean Corpuscular HGB Conc 30.9 g/dL (30.0-36.0); Mean Corpuscular Hemoglobin 34.2 pg (28.0-34.0); Mean Corpuscular Volume 110.8 fL (80-94); Mean Platelet Volume 12.6 fL (7.4-10.4); Monocytes # 0.2 10^3/uL (0.2-0.9); Monocytes % 6.1 %; Neutrophils # 1.79 10^3/uL (1.8-7.7); Neutrophils % 51.8 %; Nucleated Red Blood Cells % 0.6 %; Platelet Count 210 10^3/cmm (130-400); Red Blood Count 2.95 10^6/uL (4.1-5.3); White Blood Count 3.5 10^3/uL (4.0-10.0)
[2020-07-09 12:01] LABS: Basophils % 0.4 %; Eosinophils # 0.1 10^3/uL (0.0-0.8); Eosinophils % 1.8 %; Hematocrit 24.2 % (42.0-52.0); Hemoglobin 7.9 g/dL (11.7-16.6); Lymphocytes % 34.6 %; Mean Corpuscular HGB Conc 32.6 g/dL (30.0-36.0); Mean Corpuscular Hemoglobin 34.1 pg (28.0-34.0); Mean Corpuscular Volume 104.3 fL (80-94); Mean Platelet Volume 12.4 fL (7.4-10.4); Monocytes # 0.2 10^3/uL (0.2-0.9); Monocytes % 7.1 %; Neutrophils # 1.58 10^3/uL (1.8-7.7); Neutrophils % 55.7 %; Nucleated Red Blood Cells % 0 %; Platelet Count 175 10^3/cmm (130-400); Red Blood Count 2.32 10^6/uL (4.1-5.3); Red Cell Distribution Width 21.5 % (12.1-15.1); White Blood Count 2.8 10^3/uL (4.0-10.0)
[2020-07-09 12:27] LABS: Alanine Aminotransferase 14 U/L (0-41); Albumin Level 4.4 g/dL (3.5-5.2); Alkaline Phosphatase 72 IU/L (40-130); Anion Gap 14.3 (5-19); Aspartate Amino Transferase 13 U/L (0-40); Blood Urea Nitrogen 11 mg/dL (8-23); Calcium 9.3 mg/dL (8.5-10.5); Carbon Dioxide 27 mmol/L (22-29); Chloride 95 mmol/L (98-107); Ferritin 960 ng/mL (30-400); Globulin 2.2 g/dL (1.3-4.6); Glomerular Filtration Rate 111.5 mL/min (90-130); Glucose 385 mg/dL (65-115); Iron 206 ug/dL (59-158); Lactate Dehydrogenase 160 U/L (135-225); Osmolality Calculated 289 mOsm/kg (285-295); Potassium 4.3 mmol/L (3.5-5.1); Sodium 132 mmol/L (136-145); Total Bilirubin 1.8 mg/dL (0.15-1.2); Total Protein 6.6 g/dL (6.6-8.7)
[2020-07-09 13:02] LABS: Unsaturated Iron Binding < 17 ug/dL (112-347)
[2020-07-15] VITALS (10 sets, daily range): BP systolic 103–112; BP diastolic 50–74; PULSE 82–87; RESP 18; TEMP 36.6–37.1; O2SAT 91–95
== END 2020-07-14 23:59 | disposition home or self-care (01) ==
LOC: ONCMED 10:40
PROVIDERS: Visit Provider Internal Medicine Medical Oncology
DX: E83.111 Hemochromatosis due to repeated red blood cell transfusions (principal); D46.1 Refractory anemia with ring sideroblasts
CPT/HCPCS: 36415; 80053; 82728; 83540; 83550; 83615; 85025

== ENCOUNTER 2020-08-06 10:30 | Outpatient (RCR) | payer OTHER, SELFPAY ==
[2020-07-15] MEDS: diphenhydrAMINE 25 mg Capsule PO (09:20)
[2020-07-15] MEDS: sodium chloride 0.9% 250 ML 75 ML IV (09:20)
[2020-07-15] MEDS: acetaminophen 325 mg Tablet 650 MG PO (09:20)
[2020-07-15] MEDS: FUROsemide 10 mg/mL SDV 2mL 20 MG IVP (13:35)
[2020-07-24 15:18] LABS: Basophils % 1.2 %; Eosinophils # 0.1 10^3/uL (0.0-0.8); Eosinophils % 2.9 %; Hematocrit 29.2 % (42.0-52.0); Hemoglobin 9.5 g/dL (11.7-16.6); Lymphocytes # 0.9 10^3/uL (0.8-4.8); Lymphocytes % 36.9 %; Mean Corpuscular HGB Conc 32.5 g/dL (30.0-36.0); Mean Corpuscular Hemoglobin 31.9 pg (28.0-34.0); Monocytes # 0.1 10^3/uL (0.2-0.9); Monocytes % 4.1 %; Neutrophils # 1.31 10^3/uL (1.8-7.7); Neutrophils % 54.5 %; Nucleated Red Blood Cells % 0 %; Platelet Count 229 10^3/cmm (130-400); Red Blood Count 2.98 10^6/uL (4.1-5.3); Red Cell Distribution Width 21.8 % (12.1-15.1); White Blood Count 2.4 10^3/uL (4.0-10.0)
[2020-07-24 17:14] LABS: Alanine Aminotransferase 14 U/L (0-41); Albumin Level 4.3 g/dL (3.5-5.2); Alkaline Phosphatase 89 IU/L (40-130); Anion Gap 17.6 (5-19); Aspartate Amino Transferase 21 U/L (0-40); Blood Urea Nitrogen 6 mg/dL (8-23); Calcium 8.9 mg/dL (8.5-10.5); Carbon Dioxide 22 mmol/L (22-29); Chloride 98 mmol/L (98-107); Globulin 2.4 g/dL (1.3-4.6); Glomerular Filtration Rate 111.5 mL/min (90-130); Glucose 314 mg/dL (65-115); Iron 116 ug/dL (59-158); Lactate Dehydrogenase 159 U/L (135-225); Osmolality Calculated 288 mOsm/kg (285-295); Percent Saturation 56.3 % (20-50); Potassium 3.6 mmol/L (3.5-5.1); Sodium 134 mmol/L (136-145); Total Bilirubin 2.8 mg/dL (0.15-1.2); Total Iron Binding Capacity 206 mcg/dl; Total Protein 6.7 g/dL (6.6-8.7); Unsaturated Iron Binding 90 ug/dL (112-347)
[2020-07-24 17:30] LABS: Ferritin 1398 ng/mL (30-400)
[2020-08-06 11:54] LABS: Basophils % 0.5 %; Eosinophils # 0.1 10^3/uL (0.0-0.8); Eosinophils % 2.3 %; Hematocrit 29.3 % (42.0-52.0); Hemoglobin 9.3 g/dL (11.7-16.6); Lymphocytes # 0.9 10^3/uL (0.8-4.8); Lymphocytes % 43.1 %; Mean Corpuscular HGB Conc 31.7 g/dL (30.0-36.0); Mean Corpuscular Hemoglobin 32.4 pg (28.0-34.0); Mean Corpuscular Volume 102.1 fL (80-94); Mean Platelet Volume 12.4 fL (7.4-10.4); Monocytes # 0.1 10^3/uL (0.2-0.9); Monocytes % 5.5 %; Neutrophils # 1.06 10^3/uL (1.8-7.7); Neutrophils % 48.6 %; Nucleated Red Blood Cells % 0.9 %; Platelet Count 188 10^3/cmm (130-400); Red Blood Count 2.87 10^6/uL (4.1-5.3); Red Cell Distribution Width 22.4 % (12.1-15.1); White Blood Count 2.2 10^3/uL (4.0-10.0)
== END 2020-08-14 23:59 | disposition home or self-care (01) ==
LOC: ONCMED 10:30
PROVIDERS: Nurse Practitioner; Visit Provider Internal Medicine Medical Oncology
DX: E83.111 Hemochromatosis due to repeated red blood cell transfusions (principal); D46.1 Refractory anemia with ring sideroblasts
CPT/HCPCS: 80053; 82728; 83540; 83550; 83615; 85025; 86850; 86900; 86920; J1940; J7050; P9040

== ENCOUNTER 2020-09-04 11:30 | Outpatient (RCR) | payer OTHER, SELFPAY ==
[2020-08-18] VITALS (10 sets, daily range): BP systolic 80–103; BP diastolic 45–64; PULSE 77–83; RESP 18; TEMP 36.4–37; O2SAT 92–97
[2020-08-18 10:54] LABS: Basophils % 0.5 %; Eosinophils % 1.6 %; Lymphocytes # 0.7 10^3/uL (0.8-4.8); Lymphocytes % 38.6 %; Mean Corpuscular HGB Conc 31.9 g/dL (30.0-36.0); Mean Corpuscular Hemoglobin 31.2 pg (28.0-34.0); Mean Corpuscular Volume 97.8 fL (80-94); Mean Platelet Volume 12.9 fL (7.4-10.4); Monocytes # 0.1 10^3/uL (0.2-0.9); Monocytes % 5.8 %; Nucleated Red Blood Cells % 0 %; Platelet Count 145 10^3/cmm (130-400); Red Blood Count 1.86 10^6/uL (4.1-5.3); Red Cell Distribution Width 22.9 % (12.1-15.1); White Blood Count 1.9 10^3/uL (4.0-10.0)
[2020-08-18 11:13] LABS: Hematocrit 18.2 % (42.0-52.0); Hemoglobin 5.8 g/dL (11.7-16.6)
[2020-08-18 11:17] LABS: Alanine Aminotransferase 9 U/L (0-41); Alkaline Phosphatase 104 IU/L (40-130); Anion Gap 15.9 (5-19); Aspartate Amino Transferase 18 U/L (0-40); Blood Urea Nitrogen 7 mg/dL (8-23); Calcium 8.9 mg/dL (8.5-10.5); Carbon Dioxide 26 mmol/L (22-29); Chloride 97 mmol/L (98-107); Globulin 2.2 g/dL (1.3-4.6); Glomerular Filtration Rate 111.5 mL/min (90-130); Glucose 362 mg/dL (65-115); Iron 153 ug/dL (59-158); Lactate Dehydrogenase 183 U/L (135-225); Osmolality Calculated 293 mOsm/kg (285-295); Potassium 3.9 mmol/L (3.5-5.1); Sodium 135 mmol/L (136-145); Total Bilirubin 1.7 mg/dL (0.15-1.2); Total Protein 6.2 g/dL (6.6-8.7)
[2020-08-18 12:01] LABS: Ferritin 1575 ng/mL (30-400); Total Iron Binding Capacity 170 mcg/dl; Unsaturated Iron Binding < 17 ug/dL (112-347)
[2020-08-18] MEDS: diphenhydrAMINE 25 mg Capsule PO (12:15)
[2020-08-18] MEDS: acetaminophen 325 mg Tablet 650 MG PO (12:15)
[2020-08-18] MEDS: sodium chloride 0.9% 250 ML 999 ML IV (12:15)
[2020-08-18] MEDS: FUROsemide 10 mg/mL SDV 2mL 20 MG IV (15:00)
--- NOTE | 2020-08-22 15:59 | ONC FU_ITS ---
Dr. Coffey Patient Follow-Up Note Patient: Jose Chamberlain Unit #: [id number]: 1950 Dicatated By: Jordan Coffey M.D.Date of Visit:Aug 18, 2020 Onc Med Follow-up/Prog Note Chief Complaint: Myelodysplastic syndrome. History of Present Illness: This is a 70 year-old man with myelodysplastic syndrome (MDS with ring sideroblasts), low risk. He has transfusion dependent anemia. He also has hemochromatosis. In 2016 he was diagnosed with hemochromatosis based on elevated iron and ferritin levels. According to the patient's daughter, he was phlebotomized twice for it. I had seen him initially on 02/06/2018 after he had been found to be anemic. The available records included a CBC from 01/11/2018 showing low hemoglobin at 8.3 g with white blood cell count 3300 and platelet count 322,000. Renal function at that time was normal with BUN 9 and creatinine 0.84 mg/dL. The liver enzymes also were normal. The total bilirubin was slightly elevated at 1.6 mg/dL. The serum iron was elevated at 198 mcg/dL with transferrin saturation 97.2%. Ferritin was elevated at 1301.0 ng/mL. His laboratory evaluation in January 2018 included CBC showing hemoglobin 10.5 g with white blood cell count 3000 and platelet count 229,000. The red cell indices were macrocytic. The sedimentation rate was normal at 10 mm/hour. Comprehensive metabolic profile was unremarkable except for mildly elevated total bilirubin at 1.4 mg/dL. LDH was normal at 148 U/L. B12 level was normal at 541 pg/mL. His serum iron was elevated at 219 mcg/dL with transferrin saturation 89.6%. The ferritin was elevated at 1359 ng/mL. 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 At the time, I felt that he probably would require bone marrow aspiration/biopsy, but he had failed to return for follow-up. His repeat laboratory studies done through the [facility] on 08/14/2018 included CBC showing hemoglobin down to 7.6 g with hematocrit 23%. The red cell indices were macrocytic with MCV 113 and MCH 36. The white blood cell count was 3300 and the platelet count was 278,000. The uncorrected reticulocyte count was 2.5%. LDH was normal 158 U/L. A haptoglobin level was requested, but the result was not included. TSH was slightly low at 0.31 mIU/mL. Serum iron studies show transferrin saturation 86.1%. PSA level was 1.00 ng/mL. CEA level was 1.95 ng/mL. I had seen him for a follow-up visit on 08/24/2018, and at that point I did recommend bone marrow aspiration/biopsy. I also began empiric steroid therapy for muscle pain. He underwent bone marrow aspiration/biopsy on 09/01/2018. The marrow was hypercellular, estimated at 100%. 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 There was profound erythroid hyperplasia with associated dyserythropoiesis. The bone marrow differential included 2% blasts. CD34 positive blasts and CD 117 positive precursors were slightly increased estimated at 3% and 5% of the cellularity respectively. Iron stores were only 1+, but numerous ring sideroblasts were present. The FISH panel for MDS was unrevealing, and the standard chromosome analysis was normal. His further evaluation included an erythropoietin level, which was relatively high 143 mIU/mL. He was seen for a follow-up visit on 09/18/2018. He had noticed some improvement in his muscle pain with the prednisone, but it was not dramatic. At that point I had requested further evaluation with a [facility] next generation sequencing study. 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 He also was found to be MSI stable with low mutation burden. He was seen for a follow-up visit on 12/20/2018. At that time his hemoglobin was 8.8 g with white blood cell count 2800 and platelet count 276,000. He continued to complain of severe fatigue. With the declining blood counts and performance status, I had recommended a trial of therapy with Revlimid at 10 mg daily on a day schedule. Within one week of starting the medication, his son called reported that he had developed severe weakness, shortness of breath, and lower extremity edema. There was a precipitous drop in his hemoglobin, to 5.5 g with white blood cell count stable at 3300 and platelet count stable at 210,000. He had no symptoms to suggest acute blood loss. Chest x-ray showed COPD and possible edema, but there was no acute infiltrate. He was given IV Lasix and he began outpatient transfusion of PRBC. His shortness of breath, though, worsened, and he was placed in the hospital on overnight observation to complete the transfusion. He was able to be discharged the following day. He received a total of 3 units of PRBC. His Revlimid was put on hold. I had seen him for a follow-up visit on 01/19/2019. He had improved significantly following the transfusions, though at that time he did have symptoms of COPD exacerbation, for which he was given antibiotic coverage with Levaquin. During subsequent follow-up he had remained transfusion dependent, requiring transfusion pretty regularly on a monthly basis. He was most recently transfused on 06/21/2019 after his hemoglobin had dropped back down to 6.8 g. In the July 2019 he began treatment with Jadenu for iron overload, as his ferritin level had increased to over 2000 ng/mL. His hemoglobin had subsequently stabilized in the range of 9 to 10 g. His other medical illnesses include coronary artery disease, dyslipidemia, and COPD. 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 He has a history of smoking for more than 40 years, in the range of 1 to 1 1/2 packs of cigarettes daily. INTERIM HISTORY: On 10/23/2019 he began a trial of therapy with luspatercept at 1 mg/kg by subcutaneous injection every 3 weeks. He initially appeared to have a good response, with hemoglobin increasing to 12.3 g on 11/06/2019. However, during subsequent followup it had shown gradual decline. At his follow-up visit on 01/11/2020 I did opt to stop his treatment. At that point he was having worsening fatigue and anorexia, for which he was started on a trial of low-dose prednisone. He had symptomatic improvement with it, but it did make him feel grumpy. During follow-up the prednisone was discontinued as he had developed overt hyperglycemia. He is seen for a follow-up visit. He has been feeling very weak and has had extremely limited activity. ECOG score is 3. He has very poor appetite and is basically not eating. He has no fever or night sweats. His breathing is sometimes rough. He has cough productive of kellogg sputum. He did have some chest pain last night. He has ongoing problems with nausea. Bowel function has been okay lately. He has not been having diarrhea. He has small volume voids. He has generalized musculoskeletal pain which has worsened significantly. He has been having headaches and he also complains of dizziness. He has numbness/tingling in the extremities. He complains that he has been sleeping all the time. Medications: Aleve 1 Capsule (of 220 mg) Oral PRN, Aspirin 1 Tablet (of 81 mg) Oral daily, Coreg 0.5 Tablet (of 6.25 mg) Oral daily PRN, Gabapentin 2 Capsule (of 300 mg) Oral at bedtime PRN, HYDROcodone-Acetaminophen 1 - 2 Tablet (of 5-325 mg) Oral q 4 hours PRN, Proventil HFA 1 puff(s) (of 108 (90 base) mcg/act) Aerosol, solution Inhalation PRN, Simvastatin 0.5 Tablet (of 40 mg) Oral daily Allergies: No Known Allergies. Vital Signs: Performed on Aug 18, 2020 11:36 Height - 68.00 in Weight - 144 lbs (LOW) BSA - 1.78 sq.m BMI - 21.90 Temperature - 98.0 F (LOW) Pulse - 88 /min Respiration - 16 /min BP - 95/40 mm(hg) O2 Sat - 98 % Pain - 5 Fatigue - 9 Physical Examination: Constitutional - He appears generally weak and pale, Eyes - Sclerae nonicteric. Conjunctivae clear, ENMT - No lesions noted in the oral cavity, Hematologic/Lymphatic - No cervical, clavicular, or axillary adenopathy, Respiratory - Lungs show diminished air movement bilaterally. There are coares rhonchi present in both lung curiel, Cardiovascular - Heart rhythm is regular. There is no murmur, gallop, or rub noted, Abdomen - Soft. Liver and spleen are not enlarged. There is no abdominal mass or ascites noted and there is no inguinal adenopathy, Extremities - No edema, Neurologic - No focal neurologic deficits noted. Lab/Imaging: Test performed on Aug 18, 2020 10:25 Ferritin 1575 ng/mL Iron 153 mcg/dL LDH (Total) 183 U/L Sodium 135 mmol/L Iron Binding Capacity (TIBC) 170 mcg/dl Potassium 3.9 mmol/L % Iron Saturation 90.0 % Chloride 97 mmol/L CO2 26 mmol/L UIBC < 17 mcg/dL Anion Gap 15.9 BUN 7 mg/dL Creatinine 0.7 mg/dL Cr Clearance (Est) 96.5200 mL/min eGFR 111.5 mL/min Glucose 362 mg/dL Osmolality - Calculated 293 mOsm/kg Calcium 8.9 mg/dL Protein, Total 6.2 g/dL Albumin 4.0 g/dL Globulin 2.2 g/dL Bilirubin, Total 1.7 mg/dL ALT (SGPT) 9 U/L AST (SGOT) 18 U/L Alkaline Phosphatase 104 IU/L WBC 1.9 10 3/uL RBC 1.86 10 6/uL HGB 5.8 g/dL HCT 18.2 % MCV 97.8 fL MCH 31.2 pg MCHC 31.9 g/dL RDW 22.9 % Platelet Count 145 10 3/cmm MPV 12.9 fL Neutrophils 1.00 10 3/uL Lymphocytes 0.7 10 3/uL Monocytes 0.1 10 3/uL Eosinophils 0.0 10 3/uL Basophils 0.0 10 3/uL Neutrophil % 53.0 % Lymphocyte % 38.6 % Monocyte % 5.8 % Eosinophil % 1.6 % Basophils % 0.5 % NRBC % 0 % Irradiated Red Blood Cells [id number] ON RCI XM COMPATIBLE Anti-D Negative Blood Type ON Antibody Screen (Gel) NEGATIVE Historic Problem List: 1. Myelodysplastic syndrome, specifically MDS with ring sideroblasts. His IPSS-R calculated to 3.0, low risk. His heme next generation sequencing study showed presence of TET2 and ASXL1 mutations, both of which could be associated with high response rates to hypomethylating agents. 2. He also had significantly elevated transferrin saturation and ferritin levels. 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 3. Coronary artery disease with previous angioplasty/stent placement. 4. Dyslipidemia. 5. COPD. 6. His records indicated a history of chronic inflammatory demyelinating polyneuropathy. Problems Addressed with this Encounter and Plan: 1. Myelodysplastic syndrome (MDS with ring sideroblasts). He has associated transfusion dependent anemia. He did poorly on initial treatment with Revlimid. He opted not to attempt treatment with a hypomethylating agent. He did show improvement on a trial of therapy with luspatercept, but the benefit was temporary. He has otherwise just been managed with transfusion as needed. He presents now with acute exacerbation, hemoglobin decreased to 5.8 g. As such, he will be transfused 2 units PRBC. With a fairly rapid drop in his hemoglobin, I will now start monitoring his blood counts weekly. He will be scheduled for a follow-up visit in 4 weeks. 2. He has generalized musculoskeletal pain and poor appetite, which I suspect are indirect effects of the myelodysplastic syndrome. The symptoms had previously responded to steroid therapy, but he had stopped taking the prednisone due to elevated blood sugar. At this point, given the severity of his symptoms, I will have him restart prednisone at 10 mg twice daily for 3 days followed by 10 mg daily. He also will be given a prescription for hydrocodone 5/APAP 325 to take as needed. 3. Steroid-induced hyperglycemia. As he is now restarting prednisone, I also will begin treatment with glyburide 5 mg twice daily. I am specifically avoiding metformin because of his previous problems with diarrhea. He will require regular monitoring of blood sugar. 4. He has COPD with increased shortness of breath and productive cough. It is likely that he is experiencing some component of COPD exacerbation, and he will be given empiric antibiotic therapy with Levaquin 500 mg daily for 7 days. Signed By: Jordan Coffey M.D. <<Signature on File>>
[2020-08-25 17:28] LABS: Basophils % 1.1 %; Eosinophils # 0.1 10^3/uL (0.0-0.8); Eosinophils % 2.8 %; Hematocrit 28.9 % (42.0-52.0); Hemoglobin 9.1 g/dL (11.7-16.6); Lymphocytes # 0.7 10^3/uL (0.8-4.8); Lymphocytes % 41.6 %; Mean Corpuscular HGB Conc 31.5 g/dL (30.0-36.0); Mean Corpuscular Hemoglobin 31.4 pg (28.0-34.0); Mean Corpuscular Volume 99.7 fL (80-94); Monocytes # 0.1 10^3/uL (0.2-0.9); Monocytes % 6.2 %; Neutrophils % 48.3 %; Nucleated Red Blood Cells % 0 %; Platelet Count 185 10^3/cmm (130-400); Red Cell Distribution Width 21.9 % (12.1-15.1); White Blood Count 1.8 10^3/uL (4.0-10.0)
[2020-08-25 17:33] LABS: Blood Urea Nitrogen 7 mg/dL (8-23); Calcium 8.8 mg/dL (8.5-10.5); Carbon Dioxide 29 mmol/L (22-29); Chloride 98 mmol/L (98-107); Glomerular Filtration Rate 164.4 mL/min (90-130); Glucose 398 mg/dL (65-115); Osmolality Calculated 295 mOsm/kg (285-295); Sodium 135 mmol/L (136-145)
[2020-08-25 17:50] LABS: Neutrophils # 0.86 10^3/uL (1.8-7.7)
[2020-09-01 17:02] LABS: Basophils % 0.8 %; Eosinophils % 1.7 %; Hematocrit 28.7 % (42.0-52.0); Lymphocytes % 42.6 %; Mean Corpuscular HGB Conc 31.4 g/dL (30.0-36.0); Mean Corpuscular Volume 102.1 fL (80-94); Mean Platelet Volume 12.2 fL (7.4-10.4); Monocytes # 0.2 10^3/uL (0.2-0.9); Monocytes % 7.4 %; Neutrophils # 1.14 10^3/uL (1.8-7.7); Neutrophils % 47.1 %; Nucleated Red Blood Cells % 0 %; Platelet Count 162 10^3/cmm (130-400); Red Blood Count 2.81 10^6/uL (4.1-5.3); Red Cell Distribution Width 22.6 % (12.1-15.1); White Blood Count 2.4 10^3/uL (4.0-10.0)
[2020-09-01 17:36] LABS: Anion Gap 12.1 (5-19); Blood Urea Nitrogen 3 mg/dL (8-23); Calcium 9.1 mg/dL (8.5-10.5); Carbon Dioxide 29 mmol/L (22-29); Chloride 99 mmol/L (98-107); Glomerular Filtration Rate 133.2 mL/min (90-130); Glucose 396 mg/dL (65-115); Osmolality Calculated 295 mOsm/kg (285-295); Potassium 4.1 mmol/L (3.5-5.1); Sodium 136 mmol/L (136-145)
[2020-09-09 14:57] LABS: Basophils % 0.9 %; Eosinophils # 0.1 10^3/uL (0.0-0.8); Eosinophils % 2.3 %; Hematocrit 27.9 % (42.0-52.0); Hemoglobin 8.8 g/dL (11.7-16.6); Lymphocytes # 0.9 10^3/uL (0.8-4.8); Lymphocytes % 42.5 %; Mean Corpuscular HGB Conc 31.5 g/dL (30.0-36.0); Mean Corpuscular Hemoglobin 32.6 pg (28.0-34.0); Mean Corpuscular Volume 103.3 fL (80-94); Mean Platelet Volume 11.9 fL (7.4-10.4); Monocytes # 0.2 10^3/uL (0.2-0.9); Monocytes % 8.2 %; Neutrophils # 1.01 10^3/uL (1.8-7.7); Neutrophils % 46.1 %; Nucleated Red Blood Cells % 0 %; Platelet Count 162 10^3/cmm (130-400); Red Cell Distribution Width 22.4 % (12.1-15.1); White Blood Count 2.2 10^3/uL (4.0-10.0)
[2020-09-09 15:16] LABS: Anion Gap 10.3 (5-19); Blood Urea Nitrogen 5 mg/dL (8-23); Calcium 9.1 mg/dL (8.5-10.5); Carbon Dioxide 31 mmol/L (22-29); Chloride 98 mmol/L (98-107); Glomerular Filtration Rate 164.4 mL/min (90-130); Glucose 187 mg/dL (65-115); Osmolality Calculated 284 mOsm/kg (285-295); Potassium 3.3 mmol/L (3.5-5.1); Sodium 136 mmol/L (136-145)
== END 2020-09-14 23:59 | disposition home or self-care (01) ==
LOC: ONCMED 11:30
PROVIDERS: Visit Provider Internal Medicine Medical Oncology
DX: E83.111 Hemochromatosis due to repeated red blood cell transfusions (principal); D46.1 Refractory anemia with ring sideroblasts; I25.10 Atherosclerotic heart disease of native coronary artery without angina pectoris; Z95.5 Presence of coronary angioplasty implant and graft; E78.5 Hyperlipidemia, unspecified; J44.9 Chronic obstructive pulmonary disease, unspecified; G61.81 Chronic inflammatory demyelinating polyneuritis; R73.9 Hyperglycemia, unspecified; Z79.52 Long term (current) use of systemic steroids
CPT/HCPCS: 36415; 36430; 80048; 80053; 82728; 83540; 83550; 83615; 85025; 86850; 86900; 86920; 99215; J1940; J7050; P9040; P9058

== ENCOUNTER 2020-10-07 12:49 | Outpatient (RCR) | payer OTHER, SELFPAY ==
[2020-09-15 16:35] LABS: Basophils % 0.7 %; Eosinophils % 0.7 %; Hematocrit 27.3 % (42.0-52.0); Hemoglobin 8.7 g/dL (11.7-16.6); Lymphocytes # 1.1 10^3/uL (0.8-4.8); Lymphocytes % 39.9 %; Mean Corpuscular HGB Conc 31.9 g/dL (30.0-36.0); Mean Corpuscular Hemoglobin 33.1 pg (28.0-34.0); Mean Corpuscular Volume 103.8 fL (80-94); Mean Platelet Volume 12.4 fL (7.4-10.4); Monocytes # 0.2 10^3/uL (0.2-0.9); Monocytes % 6.2 %; Neutrophils # 1.43 10^3/uL (1.8-7.7); Neutrophils % 52.5 %; Nucleated Red Blood Cells % 0 %; Platelet Count 200 10^3/cmm (130-400); Red Blood Count 2.63 10^6/uL (4.1-5.3); Red Cell Distribution Width 22.3 % (12.1-15.1); White Blood Count 2.7 10^3/uL (4.0-10.0)
[2020-09-15 16:58] LABS: Anion Gap 9.4 (5-19); Blood Urea Nitrogen 8 mg/dL (8-23); Calcium 8.6 mg/dL (8.5-10.5); Carbon Dioxide 32 mmol/L (22-29); Chloride 103 mmol/L (98-107); Glomerular Filtration Rate 133.2 mL/min (90-130); Glucose 166 mg/dL (65-115); Osmolality Calculated 294 mOsm/kg (285-295); Potassium 3.4 mmol/L (3.5-5.1); Sodium 141 mmol/L (136-145)
--- NOTE | 2020-09-19 18:17 | ONC FU_ITS ---
Dr. Coffey Patient Follow-Up Note Patient: Jose Chamberlain Unit #: [id number]: 1950 Dicatated By: Jordan Coffey M.D.Date of Visit:Sep 16, 2020 Onc Med Follow-up/Prog Note Chief Complaint: Myelodysplastic syndrome. History of Present Illness: This is a 70 year-old man with myelodysplastic syndrome (MDS with ring sideroblasts), low risk. He has transfusion dependent anemia. He also has hemochromatosis. In 2016 he was diagnosed with hemochromatosis based on elevated iron and ferritin levels. According to the patient's daughter, he was phlebotomized twice for it. I had seen him initially on 02/06/2018 after he had been found to be anemic. The available records included a CBC from 01/11/2018 showing low hemoglobin at 8.3 g with white blood cell count 3300 and platelet count 322,000. Renal function at that time was normal with BUN 9 and creatinine 0.84 mg/dL. The liver enzymes also were normal. The total bilirubin was slightly elevated at 1.6 mg/dL. The serum iron was elevated at 198 mcg/dL with transferrin saturation 97.2%. Ferritin was elevated at 1301.0 ng/mL. His laboratory evaluation in January 2018 included CBC showing hemoglobin 10.5 g with white blood cell count 3000 and platelet count 229,000. The red cell indices were macrocytic. The sedimentation rate was normal at 10 mm/hour. Comprehensive metabolic profile was unremarkable except for mildly elevated total bilirubin at 1.4 mg/dL. LDH was normal at 148 U/L. B12 level was normal at 541 pg/mL. His serum iron was elevated at 219 mcg/dL with transferrin saturation 89.6%. The ferritin was elevated at 1359 ng/mL. 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 At the time, I felt that he probably would require bone marrow aspiration/biopsy, but he had failed to return for follow-up. His repeat laboratory studies done through the [facility] on 08/14/2018 included CBC showing hemoglobin down to 7.6 g with hematocrit 23%. The red cell indices were macrocytic with MCV 113 and MCH 36. The white blood cell count was 3300 and the platelet count was 278,000. The uncorrected reticulocyte count was 2.5%. LDH was normal 158 U/L. A haptoglobin level was requested, but the result was not included. TSH was slightly low at 0.31 mIU/mL. Serum iron studies show transferrin saturation 86.1%. PSA level was 1.00 ng/mL. CEA level was 1.95 ng/mL. I had seen him for a follow-up visit on 08/24/2018, and at that point I did recommend bone marrow aspiration/biopsy. I also began empiric steroid therapy for muscle pain. He underwent bone marrow aspiration/biopsy on 09/01/2018. The marrow was hypercellular, estimated at 100%. 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 There was profound erythroid hyperplasia with associated dyserythropoiesis. The bone marrow differential included 2% blasts. CD34 positive blasts and CD 117 positive precursors were slightly increased estimated at 3% and 5% of the cellularity respectively. Iron stores were only 1+, but numerous ring sideroblasts were present. The FISH panel for MDS was unrevealing, and the standard chromosome analysis was normal. His further evaluation included an erythropoietin level, which was relatively high 143 mIU/mL. He was seen for a follow-up visit on 09/18/2018. He had noticed some improvement in his muscle pain with the prednisone, but it was not dramatic. At that point I had requested further evaluation with a [facility] next generation sequencing study. 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 He also was found to be MSI stable with low mutation burden. He was seen for a follow-up visit on 12/20/2018. At that time his hemoglobin was 8.8 g with white blood cell count 2800 and platelet count 276,000. He continued to complain of severe fatigue. With the declining blood counts and performance status, I had recommended a trial of therapy with Revlimid at 10 mg daily on a day schedule. Within one week of starting the medication, his son called reported that he had developed severe weakness, shortness of breath, and lower extremity edema. There was a precipitous drop in his hemoglobin, to 5.5 g with white blood cell count stable at 3300 and platelet count stable at 210,000. He had no symptoms to suggest acute blood loss. Chest x-ray showed COPD and possible edema, but there was no acute infiltrate. He was given IV Lasix and he began outpatient transfusion of PRBC. His shortness of breath, though, worsened, and he was placed in the hospital on overnight observation to complete the transfusion. He was able to be discharged the following day. He received a total of 3 units of PRBC. His Revlimid was put on hold. I had seen him for a follow-up visit on 01/19/2019. He had improved significantly following the transfusions, though at that time he did have symptoms of COPD exacerbation, for which he was given antibiotic coverage with Levaquin. During subsequent follow-up he had remained transfusion dependent, requiring transfusion pretty regularly on a monthly basis. He was most recently transfused on 06/21/2019 after his hemoglobin had dropped back down to 6.8 g. In the July 2019 he began treatment with Jadenu for iron overload, as his ferritin level had increased to over 2000 ng/mL. His hemoglobin had subsequently stabilized in the range of 9 to 10 g. His other medical illnesses include coronary artery disease, dyslipidemia, and COPD. 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 He has a history of smoking for more than 40 years, in the range of 1 to 1 1/2 packs of cigarettes daily. INTERIM HISTORY: On 10/23/2019 he began a trial of therapy with luspatercept at 1 mg/kg by subcutaneous injection every 3 weeks. He initially appeared to have a good response, with hemoglobin increasing to 12.3 g on 11/06/2019. However, during subsequent followup it had shown gradual decline. At his follow-up visit on 01/11/2020 I did opt to stop his treatment. At that point he was having worsening fatigue and anorexia, for which he was started on a trial of low-dose prednisone. He had symptomatic improvement with it, but it did make him feel grumpy. He had subsequently stopped the prednisone due to hyperglycemia, but I did have him restart it in August. He also continued PRBC transfusions as needed. He is seen for a follow-up visit. He continues to complain that he is tired and that he has no energy. He is able to do some light work. ECOG score is 1. Appetite is been okay since he got back on the prednisone. He has no fever or night sweats. He has shortness of breath with activity. He has a cigarette cough, and he does have some chest congestion. He occasionally has chest pain. He has been having some constipation. He has no other GI or complaints. He says he hurts from time to time. He does not complain of headache, and he has no focal neurologic symptoms. Medications: Aleve 1 Capsule (of 220 mg) Oral PRN, Aspirin 1 Tablet (of 81 mg) Oral daily, Coreg 0.5 Tablet (of 6.25 mg) Oral daily PRN, Gabapentin 1 Capsule (of 300 mg) Oral t.i.d. PRN, HYDROcodone-Acetaminophen 1 - 2 Tablet (of 5-325 mg) Oral q 4 hours PRN, predniSONE 1 (5 mg) Tablet Oral b.i.d., Proventil HFA 1 puff(s) (of 108 (90 base) mcg/act) Aerosol, solution Inhalation PRN, Simvastatin 0.5 Tablet (of 40 mg) Oral daily Allergies: No Known Allergies. Vital Signs: Performed on Sep 16, 2020 13:44 Height - 68.00 in Weight - 143.3 lbs (LOW) BSA - 1.77 sq.m BMI - 21.79 Temperature - 96.9 F (LOW) Pulse - 73 /min Respiration - 17 /min BP - 104/45 mm(hg) O2 Sat - 98 % Pain - 0 Physical Examination: Constitutional - He appears chronically ill, Eyes - Sclerae nonicteric. Conjunctivae clear, ENMT - No lesions noted in the oral cavity, Hematologic/Lymphatic - No cervical, clavicular, or axillary adenopathy, Respiratory - Lungs show coarse breath sounds with diminished air movement bilaterally, Cardiovascular - Heart rhythm is regular. There is no murmur, gallop, or rub noted, Abdomen - Soft. Liver and spleen are not enlarged. There is no abdominal mass or ascites noted and there is no inguinal adenopathy, Extremities - No edema, Neurologic - No focal neurologic deficits noted. Lab/Imaging: CBC shows hemoglobin 8.7 g, white blood cell count 2700, and platelet count 200,000. Comprehensive metabolic profile shows slightly low potassium at 3.4 mmol/L. The nonfasting blood sugar is 166 mg/dL. Problem List: 1. Myelodysplastic syndrome, specifically MDS with ring sideroblasts. His IPSS-R calculated to 3.0, low risk. His heme next generation sequencing study showed presence of TET2 and ASXL1 mutations, both of which could be associated with high response rates to hypomethylating agents. 2. He also had significantly elevated transferrin saturation and ferritin levels. 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 3. Coronary artery disease with previous angioplasty/stent placement. 4. Dyslipidemia. 5. COPD. 6. His records indicated a history of chronic inflammatory demyelinating polyneuropathy. Problems Addressed with this Encounter and Plan: 1. Myelodysplastic syndrome (MDS with ring sideroblasts). He has associated transfusion dependent anemia. He did poorly on initial treatment with Revlimid. He opted not to attempt treatment with a hypomethylating agent. He did show improvement on a trial of therapy with luspatercept, but the benefit was temporary. He has since then been managed with transfusion as needed. At this point his clinical status appears stable, and his blood count is above transfusion threshold. I will recheck his blood count in 2 weeks, and he will be transfused PRBC as needed. He will have a follow-up visit in 4 weeks. 2. He has generalized musculoskeletal pain and poor appetite, which I suspect are indirect effects of the myelodysplastic syndrome. He has had symptomatic improvement with prednisone, which he will continue at 10 mg daily. He will continue gabapentin 300 mg 3 times daily, and he also will continue hydrocodone 5/APAP 325 to take as needed. 3. Steroid-induced hyperglycemia. As he is now restarting prednisone, I also will begin treatment with glyburide 5 mg twice daily. I have avoided metformin because of his previous problems with diarrhea. He requires regular monitoring of blood sugar. 4. He has COPD, but that currently appears stable. Signed By: Jordan Coffey M.D. <<Signature on File>>
[2020-09-23 17:38] LABS: Basophils % 1.5 %; Eosinophils % 0.7 %; Hematocrit 28.8 % (42.0-52.0); Lymphocytes # 1.2 10^3/uL (0.8-4.8); Lymphocytes % 43.8 %; Mean Corpuscular HGB Conc 31.3 g/dL (30.0-36.0); Mean Corpuscular Volume 102.5 fL (80-94); Mean Platelet Volume 12.3 fL (7.4-10.4); Monocytes # 0.2 10^3/uL (0.2-0.9); Monocytes % 5.8 %; Neutrophils # 1.32 10^3/uL (1.8-7.7); Neutrophils % 48.2 %; Nucleated Red Blood Cells % 0 %; Platelet Count 217 10^3/cmm (130-400); Red Blood Count 2.81 10^6/uL (4.1-5.3); Red Cell Distribution Width 20.9 % (12.1-15.1); White Blood Count 2.7 10^3/uL (4.0-10.0)
[2020-09-23 17:55] LABS: Anion Gap 9.4 (5-19); Blood Urea Nitrogen 4 mg/dL (8-23); Carbon Dioxide 32 mmol/L (22-29); Chloride 102 mmol/L (98-107); Glomerular Filtration Rate 164.4 mL/min (90-130); Glucose 152 mg/dL (65-115); Osmolality Calculated 290 mOsm/kg (285-295); Potassium 3.4 mmol/L (3.5-5.1); Sodium 140 mmol/L (136-145)
[2020-10-07 19:00] LABS: Basophils % 0.7 %; Eosinophils # 0.1 10^3/uL (0.0-0.8); Eosinophils % 2.4 %; Hematocrit 26.6 % (42.0-52.0); Hemoglobin 8.2 g/dL (11.7-16.6); Mean Corpuscular HGB Conc 30.8 g/dL (30.0-36.0); Mean Corpuscular Hemoglobin 31.5 pg (28.0-34.0); Mean Corpuscular Volume 102.3 fL (80-94); Mean Platelet Volume 12.8 fL (7.4-10.4); Monocytes # 0.2 10^3/uL (0.2-0.9); Monocytes % 6.6 %; Neutrophils # 1.64 10^3/uL (1.8-7.7); Nucleated Red Blood Cells % 0 %; Platelet Count 215 10^3/cmm (130-400); Red Cell Distribution Width 20.3 % (12.1-15.1); White Blood Count 2.9 10^3/uL (4.0-10.0)
== END 2020-10-12 23:59 | disposition home or self-care (01) ==
LOC: ONCMED 12:49
PROVIDERS: Visit Provider Internal Medicine Medical Oncology
DX: E83.111 Hemochromatosis due to repeated red blood cell transfusions (principal); D46.1 Refractory anemia with ring sideroblasts; I25.10 Atherosclerotic heart disease of native coronary artery without angina pectoris; Z95.5 Presence of coronary angioplasty implant and graft; E78.5 Hyperlipidemia, unspecified; J44.9 Chronic obstructive pulmonary disease, unspecified; G61.81 Chronic inflammatory demyelinating polyneuritis
CPT/HCPCS: 80048; 85025; 99214

== ENCOUNTER 2020-11-11 12:30 | Outpatient (RCR) | payer OTHER, SELFPAY ==
[2020-10-13] VITALS (8 sets, daily range): BP systolic 96–110; BP diastolic 57–68; PULSE 79–84; RESP 18; TEMP 37–37.3; O2SAT 94–96
[2020-10-13 10:01] LABS: Basophils % 0.4 %; Eosinophils % 1.7 %; Hematocrit 24.4 % (42.0-52.0); Hemoglobin 7.8 g/dL (11.7-16.6); Lymphocytes # 0.7 10^3/uL (0.8-4.8); Mean Corpuscular Hemoglobin 32.2 pg (28.0-34.0); Mean Corpuscular Volume 100.8 fL (80-94); Monocytes # 0.2 10^3/uL (0.2-0.9); Monocytes % 6.3 %; Neutrophils # 1.48 10^3/uL (1.8-7.7); Neutrophils % 62.2 %; Nucleated Red Blood Cells % 0 %; Platelet Count 199 10^3/cmm (130-400); Red Blood Count 2.42 10^6/uL (4.1-5.3); Red Cell Distribution Width 21.7 % (12.1-15.1); White Blood Count 2.4 10^3/uL (4.0-10.0)
[2020-10-13 10:17] LABS: Alanine Aminotransferase 9 U/L (0-41); Albumin Level 4.1 g/dL (3.5-5.2); Alkaline Phosphatase 91 IU/L (40-130); Anion Gap 11.1 (5-19); Aspartate Amino Transferase 22 U/L (0-40); Blood Urea Nitrogen 8 mg/dL (8-23); Calcium 8.8 mg/dL (8.5-10.5); Carbon Dioxide 29 mmol/L (22-29); Chloride 102 mmol/L (98-107); Globulin 2.8 g/dL (1.3-4.6); Glomerular Filtration Rate 133.2 mL/min (90-130); Glucose 195 mg/dL (65-115); Lactate Dehydrogenase 152 U/L (135-225); Osmolality Calculated 290 mOsm/kg (285-295); Potassium 4.1 mmol/L (3.5-5.1); Sodium 138 mmol/L (136-145); Total Bilirubin 1.9 mg/dL (0.15-1.2); Total Protein 6.9 g/dL (6.6-8.7)
[2020-10-13] MEDS: diphenhydrAMINE 25 mg Capsule PO (12:34)
[2020-10-13 12:57] LABS: Estmated Average Glucose 114; Hemoglobin A1C 5.6 % (4.0-6.0)
[2020-10-13] MEDS: sodium chloride 0.9% 250 ML 999 ML IV (13:00)
[2020-10-13] MEDS: acetaminophen 325 mg Tablet 650 MG PO (13:10)
[2020-10-13] MEDS: FUROsemide 10 mg/mL SDV 2mL 20 MG IV (14:30)
[2020-10-21 17:22] LABS: Anion Gap 9.9 (5-19); Blood Urea Nitrogen 9 mg/dL (8-23); Carbon Dioxide 30 mmol/L (22-29); Chloride 102 mmol/L (98-107); Glomerular Filtration Rate 133.2 mL/min (90-130); Glucose 155 mg/dL (65-115); Osmolality Calculated 288 mOsm/kg (285-295); Potassium 3.9 mmol/L (3.5-5.1); Sodium 138 mmol/L (136-145)
[2020-10-22 10:16] LABS: Basophils % 0.9 %; Eosinophils # 0.1 10^3/uL (0.0-0.8); Eosinophils % 2.4 %; Hematocrit 27.8 % (42.0-52.0); Hemoglobin 8.7 g/dL (11.7-16.6); Lymphocytes # 0.8 10^3/uL (0.8-4.8); Lymphocytes % 38.4 %; Mean Corpuscular HGB Conc 31.3 g/dL (30.0-36.0); Mean Corpuscular Hemoglobin 31.2 pg (28.0-34.0); Mean Corpuscular Volume 99.6 fL (80-94); Mean Platelet Volume 12.8 fL (7.4-10.4); Monocytes # 0.2 10^3/uL (0.2-0.9); Monocytes % 7.1 %; Neutrophils # 1.08 10^3/uL (1.8-7.7); Neutrophils % 51.2 %; Nucleated Red Blood Cells % 0 %; Platelet Count 182 10^3/cmm (130-400); Red Blood Count 2.79 10^6/uL (4.1-5.3); Red Cell Distribution Width 19.4 % (12.1-15.1); White Blood Count 2.1 10^3/uL (4.0-10.0)
[2020-10-28 17:13] LABS: Basophils % 1.3 %; Eosinophils % 2.5 %; Hematocrit 23.8 % (42.0-52.0); Hemoglobin 7.5 g/dL (11.7-16.6); Lymphocytes # 0.5 10^3/uL (0.8-4.8); Lymphocytes % 31.8 %; Mean Corpuscular HGB Conc 31.5 g/dL (30.0-36.0); Mean Corpuscular Hemoglobin 30.4 pg (28.0-34.0); Mean Corpuscular Volume 96.4 fL (80-94); Mean Platelet Volume 12.1 fL (7.4-10.4); Monocytes # 0.1 10^3/uL (0.2-0.9); Neutrophils % 57.4 %; Nucleated Red Blood Cells % 0 %; Platelet Count 184 10^3/cmm (130-400); Red Blood Count 2.47 10^6/uL (4.1-5.3); Red Cell Distribution Width 19.2 % (12.1-15.1); White Blood Count 1.6 10^3/uL (4.0-10.0)
[2020-10-28 17:34] LABS: Blood Urea Nitrogen 9 mg/dL (8-23); Calcium 8.8 mg/dL (8.5-10.5); Carbon Dioxide 29 mmol/L (22-29); Chloride 98 mmol/L (98-107); Glomerular Filtration Rate 164.4 mL/min (90-130); Glucose 225 mg/dL (65-115); Osmolality Calculated 284 mOsm/kg (285-295); Sodium 134 mmol/L (136-145)
[2020-10-28 17:57] LABS: Anion Gap 11.2 (5-19); Potassium 4.2 mmol/L (3.5-5.1)
[2020-10-30] MEDS: sodium chloride 0.9% 250 ML 999 ML IV (10:30)
[2020-10-30] MEDS: acetaminophen 325 mg Tablet 650 MG PO (10:30)
[2020-10-30] MEDS: diphenhydrAMINE 25 mg Capsule PO (10:30)
[2020-10-30 11:31] VITALS: BP 91/53; PULSE 75; RESP 18; TEMP 36.7; O2SAT 94
[2020-10-30 11:35] VITALS: BP 85/50; PULSE 74; RESP 18; TEMP 36.7; O2SAT 94
[2020-10-30 11:50] VITALS: BP 92/54; PULSE 73; RESP 18; TEMP 36.7; O2SAT 94
[2020-10-30 12:20] VITALS: BP 98/59; PULSE 74; RESP 18; TEMP 36.6; O2SAT 94
[2020-10-30 13:20] VITALS: BP 97/51; PULSE 96; RESP 18; TEMP 36.5; O2SAT 96
[2020-10-30] MEDS: FUROsemide 10 mg/mL SDV 2mL 20 MG IV (13:25)
[2020-10-30 13:30] VITALS: BP 96/67; PULSE 72; RESP 18; TEMP 36.8; O2SAT 94
--- NOTE | 2020-10-30 14:00 | ONC FU_ITS ---
Dr. Coffey Patient Follow-Up Note Patient: Jose Chamberlain Unit #: [id number]: 1950 Dicatated By: Jordan Coffey M.D.Date of Visit:Oct 30, 2020 Onc Med Follow-up/Prog Note Chief Complaint: Myelodysplastic syndrome. History of Present Illness: This is a 70 year-old man with myelodysplastic syndrome (MDS with ring sideroblasts), low risk. He has transfusion dependent anemia. He also has hemochromatosis. In 2016 he was diagnosed with hemochromatosis based on elevated iron and ferritin levels. According to the patient's daughter, he was phlebotomized twice for it. I had seen him initially on 02/06/2018 after he had been found to be anemic. The available records included a CBC from 01/11/2018 showing low hemoglobin at 8.3 g with white blood cell count 3300 and platelet count 322,000. Renal function at that time was normal with BUN 9 and creatinine 0.84 mg/dL. The liver enzymes also were normal. The total bilirubin was slightly elevated at 1.6 mg/dL. The serum iron was elevated at 198 mcg/dL with transferrin saturation 97.2%. Ferritin was elevated at 1301.0 ng/mL. His laboratory evaluation in January 2018 included CBC showing hemoglobin 10.5 g with white blood cell count 3000 and platelet count 229,000. The red cell indices were macrocytic. The sedimentation rate was normal at 10 mm/hour. Comprehensive metabolic profile was unremarkable except for mildly elevated total bilirubin at 1.4 mg/dL. LDH was normal at 148 U/L. B12 level was normal at 541 pg/mL. His serum iron was elevated at 219 mcg/dL with transferrin saturation 89.6%. The ferritin was elevated at 1359 ng/mL. 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 At the time, I felt that he probably would require bone marrow aspiration/biopsy, but he had failed to return for follow-up. His repeat laboratory studies done through the [facility] on 08/14/2018 included CBC showing hemoglobin down to 7.6 g with hematocrit 23%. The red cell indices were macrocytic with MCV 113 and MCH 36. The white blood cell count was 3300 and the platelet count was 278,000. The uncorrected reticulocyte count was 2.5%. LDH was normal 158 U/L. A haptoglobin level was requested, but the result was not included. TSH was slightly low at 0.31 mIU/mL. Serum iron studies show transferrin saturation 86.1%. PSA level was 1.00 ng/mL. CEA level was 1.95 ng/mL. I had seen him for a follow-up visit on 08/24/2018, and at that point I did recommend bone marrow aspiration/biopsy. I also began empiric steroid therapy for muscle pain. He underwent bone marrow aspiration/biopsy on 09/01/2018. The marrow was hypercellular, estimated at 100%. 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 There was profound erythroid hyperplasia with associated dyserythropoiesis. The bone marrow differential included 2% blasts. CD34 positive blasts and CD 117 positive precursors were slightly increased estimated at 3% and 5% of the cellularity respectively. Iron stores were only 1+, but numerous ring sideroblasts were present. The FISH panel for MDS was unrevealing, and the standard chromosome analysis was normal. His further evaluation included an erythropoietin level, which was relatively high 143 mIU/mL. He was seen for a follow-up visit on 09/18/2018. He had noticed some improvement in his muscle pain with the prednisone, but it was not dramatic. At that point I had requested further evaluation with a [facility] next generation sequencing study. 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 He also was found to be MSI stable with low mutation burden. He was seen for a follow-up visit on 12/20/2018. At that time his hemoglobin was 8.8 g with white blood cell count 2800 and platelet count 276,000. He continued to complain of severe fatigue. With the declining blood counts and performance status, I had recommended a trial of therapy with Revlimid at 10 mg daily on a day schedule. Within one week of starting the medication, his son called reported that he had developed severe weakness, shortness of breath, and lower extremity edema. There was a precipitous drop in his hemoglobin, to 5.5 g with white blood cell count stable at 3300 and platelet count stable at 210,000. He had no symptoms to suggest acute blood loss. Chest x-ray showed COPD and possible edema, but there was no acute infiltrate. He was given IV Lasix and he began outpatient transfusion of PRBC. His shortness of breath, though, worsened, and he was placed in the hospital on overnight observation to complete the transfusion. He was able to be discharged the following day. He received a total of 3 units of PRBC. His Revlimid was put on hold. I had seen him for a follow-up visit on 01/19/2019. He had improved significantly following the transfusions, though at that time he did have symptoms of COPD exacerbation, for which he was given antibiotic coverage with Levaquin. During subsequent follow-up he had remained transfusion dependent, requiring transfusion pretty regularly on a monthly basis. He was most recently transfused on 06/21/2019 after his hemoglobin had dropped back down to 6.8 g. In the July 2019 he began treatment with Jadenu for iron overload, as his ferritin level had increased to over 2000 ng/mL. His hemoglobin had subsequently stabilized in the range of 9 to 10 g. His other medical illnesses include coronary artery disease, dyslipidemia, and COPD. 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 He has a history of smoking for more than 40 years, in the range of 1 to 1 1/2 packs of cigarettes daily. INTERIM HISTORY: On 10/23/2019 he began a trial of therapy with luspatercept at 1 mg/kg by subcutaneous injection every 3 weeks. He initially appeared to have a good response, with hemoglobin increasing to 12.3 g on 11/06/2019. However, during subsequent followup it had shown gradual decline. At his follow-up visit on 01/11/2020 I did opt to stop his treatment. At that point he was having worsening fatigue and anorexia, for which he was started on a trial of low-dose prednisone. He had symptomatic improvement with it, but it did make him feel grumpy. He had subsequently stopped the prednisone due to hyperglycemia, but I did have him restart it in August. He also continued PRBC transfusions as needed. He is seen for a follow-up visit. He has not been feeling good. He complains that he has no gas, to the point that he cannot get up and go. He has virtually no activity. ECOG score is 3. He also complains that he has no appetite. His weight is down a couple of pounds. He does not have fever or night sweats. He has not had sore mouth or throat, but he does complain that his voice is changing. He has shortness of breath. He has chronic cough. He occasionally has chest pain which just comes and goes. He has not been having nausea. He does have some constipation. Bladder function remains adequate. He is having more pain, particularly in his shoulders and hips. He is having difficulty sleeping. He also complains of dizziness. He is not having headache and he has no focal neurologic symptoms. Medications: Aleve 1 Capsule (of 220 mg) Oral PRN, Aspirin 1 Tablet (of 81 mg) Oral daily, Coreg 0.5 Tablet (of 6.25 mg) Oral daily PRN, Gabapentin 1 Capsule (of 300 mg) Oral t.i.d. PRN, HYDROcodone-Acetaminophen 1 - 2 Tablet (of 5-325 mg) Oral q 4 hours PRN, predniSONE 1 (10 mg) Tablet Oral daily, Proventil HFA 1 puff(s) (of 108 (90 base) mcg/act) Aerosol, solution Inhalation PRN, Simvastatin 0.5 Tablet (of 40 mg) Oral daily Allergies: No Known Allergies. Vital Signs: Performed on Oct 30, 2020 10:16 Height - 68.00 in Weight - 141.4 lbs (LOW) BSA - 1.76 sq.m BMI - 21.50 Temperature - 98.3 F (LOW) Pulse - 81 /min Respiration - 18 /min BP - 89/49 mm(hg) (LOW) O2 Sat - 97 % Pain - 8 Fatigue - 8 Physical Examination: Constitutional - He appears generally weak and chronically ill, Eyes - Sclerae nonicteric. Conjunctivae clear, ENMT - No lesions noted in the oral cavity, Hematologic/Lymphatic - No cervical, clavicular, or axillary adenopathy, Respiratory - Lungs show diminished air movement bilaterally. There are coarse rales bilaterally, Cardiovascular - Heart rhythm is regular. There is no murmur, gallop, or rub noted, Abdomen - Soft. Liver and spleen are not enlarged. There is no abdominal mass or ascites noted and there is no inguinal adenopathy, Extremities - No edema, Neurologic - No focal neurologic deficits noted. Lab/Imaging: Test performed on Oct 21, 2020 12:12 Sodium 138 mmol/L Potassium 3.9 mmol/L Chloride 102 mmol/L CO2 30 mmol/L Anion Gap 9.9 Glucose 155 mg/dL BUN 9 mg/dL Creatinine 0.6 mg/dL Cr Clearance (Est) 112.6000 mL/min eGFR 133.2 mL/min Calcium 9.0 mg/dL Osmolality - Calculated 288 mOsm/kg WBC 2.1 10 3/uL RBC 2.79 10 6/uL HGB 8.7 g/dL HCT 27.8 % MCV 99.6 fL MCH 31.2 pg MCHC 31.3 g/dL RDW 19.4 % Platelet Count 182 10 3/cmm MPV 12.8 fL Neutrophils 1.08 10 3/uL Lymphocytes 0.8 10 3/uL Monocytes 0.2 10 3/uL Eosinophils 0.1 10 3/uL Basophils 0.0 10 3/uL Neutrophil % 51.2 % Lymphocyte % 38.4 % Monocyte % 7.1 % Eosinophil % 2.4 % Basophils % 0.9 % NRBC % 0 % Problem List: 1. Myelodysplastic syndrome, specifically MDS with ring sideroblasts. His IPSS-R calculated to 3.0, low risk. His heme next generation sequencing study showed presence of TET2 and ASXL1 mutations, both of which could be associated with high response rates to hypomethylating agents. 2. He also had significantly elevated transferrin saturation and ferritin levels. 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 3. Coronary artery disease with previous angioplasty/stent placement. 4. Dyslipidemia. 5. COPD. 6. His records indicated a history of chronic inflammatory demyelinating polyneuropathy. Problems Addressed with this Encounter and Plan: 1. Myelodysplastic syndrome (MDS with ring sideroblasts). He has associated transfusion dependent anemia. He did poorly on initial treatment with Revlimid. He opted not to attempt treatment with a hypomethylating agent. He did show improvement on a trial of therapy with luspatercept, but the benefit was temporary. He has since then been managed with transfusion as needed. During follow-up he has continued to require transfusion on a fairly regular basis. There has been significant decline in his general condition/performance status. With his recent CBC showing hemoglobin back down to 7.5 g, he is being transfused PRBC today. Blood counts will be monitored weekly and he will be transfused again as needed. His overall prognosis, though, is poor. 2. He has generalized musculoskeletal pain and poor appetite, which I suspect are indirect effects of the myelodysplastic syndrome. He previously had symptomatic improvement with prednisone, and I will have him try increasing the dose to 10 mg twice daily. He will stop gabapentin. I will now have him start extended release morphine 15 mg every 12 hours, and he will take hydrocodone 7.5/APAP 325 up to 4 times a day as needed. He also will start trazodone 50 mg at bedtime. 3. Steroid-induced hyperglycemia. He continues treatment with glyburide 5 mg twice daily. He will require regular monitoring of blood sugar. 4. He has significant underlying COPD, which appears stable. Signed By: Jordan Coffey M.D. <<Signature on File>>
[2020-11-04 18:32] LABS: Basophils % 1.2 %; Eosinophils # 0.1 10^3/uL (0.0-0.8); Eosinophils % 3.1 %; Hematocrit 24.8 % (42.0-52.0); Hemoglobin 8.3 g/dL (11.7-16.6); Lymphocytes # 0.6 10^3/uL (0.8-4.8); Mean Corpuscular HGB Conc 33.5 g/dL (30.0-36.0); Mean Corpuscular Hemoglobin 31.4 pg (28.0-34.0); Mean Corpuscular Volume 93.9 fL (80-94); Mean Platelet Volume 12.7 fL (7.4-10.4); Monocytes # 0.1 10^3/uL (0.2-0.9); Monocytes % 8.6 %; Neutrophils % 53.1 %; Nucleated Red Blood Cells % 0 %; Platelet Count 189 10^3/cmm (130-400); Red Blood Count 2.64 10^6/uL (4.1-5.3); Red Cell Distribution Width 17.7 % (12.1-15.1); White Blood Count 1.6 10^3/uL (4.0-10.0)
[2020-11-04 19:36] LABS: Neutrophils # 0.86 10^3/uL (1.8-7.7)
[2020-11-04 20:43] LABS: Anion Gap 7.9 (5-19); Blood Urea Nitrogen 6 mg/dL (8-23); Calcium 8.3 mg/dL (8.5-10.5); Carbon Dioxide 31 mmol/L (22-29); Chloride 102 mmol/L (98-107); Glomerular Filtration Rate 164.4 mL/min (90-130); Glucose 179 mg/dL (65-115); Osmolality Calculated 286 mOsm/kg (285-295); Potassium 3.9 mmol/L (3.5-5.1); Sodium 137 mmol/L (136-145)
[2020-11-11 15:45] LABS: Eosinophils % 1.6 %; Lymphocytes # 0.5 10^3/uL (0.8-4.8); Lymphocytes % 38.7 %; Mean Corpuscular Hemoglobin 30.5 pg (28.0-34.0); Mean Corpuscular Volume 95.3 fL (80-94); Mean Platelet Volume 11.7 fL (7.4-10.4); Monocytes # 0.1 10^3/uL (0.2-0.9); Monocytes % 9.7 %; Nucleated Red Blood Cells % 0 %; Platelet Count 156 10^3/cmm (130-400); Red Cell Distribution Width 18.2 % (12.1-15.1); White Blood Count 1.2 10^3/uL (4.0-10.0)
[2020-11-11 16:02] LABS: Anion Gap 11.2 (5-19); Blood Urea Nitrogen 15 mg/dL (8-23); Calcium 8.7 mg/dL (8.5-10.5); Carbon Dioxide 28 mmol/L (22-29); Chloride 102 mmol/L (98-107); Glomerular Filtration Rate 133.2 mL/min (90-130); Glucose 106 mg/dL (65-115); Osmolality Calculated 285 mOsm/kg (285-295); Potassium 4.2 mmol/L (3.5-5.1); Sodium 137 mmol/L (136-145)
[2020-11-11 16:20] LABS: Hematocrit 18.1 % (42.0-52.0); Hemoglobin 5.8 g/dL (11.7-16.6); Neutrophils # 0.62 10^3/uL (1.8-7.7)
== END 2020-11-12 23:59 | disposition home or self-care (01) ==
LOC: ONCMED 12:30
PROVIDERS: Visit Provider Internal Medicine Medical Oncology
DX: D46.1 Refractory anemia with ring sideroblasts (principal); E83.110 Hereditary hemochromatosis; M79.10 Myalgia, unspecified site; R63.0 Anorexia; R73.9 Hyperglycemia, unspecified; T38.0X5A Adverse effect of glucocorticoids and synthetic analogues, initial encounter; J44.9 Chronic obstructive pulmonary disease, unspecified; F17.210 Nicotine dependence, cigarettes, uncomplicated; Z79.891 Long term (current) use of opiate analgesic; Z79.84 Long term (current) use of oral hypoglycemic drugs
CPT/HCPCS: 36430; 80048; 80053; 83036; 83615; 85025; 86850; 86900; 86920; 99214; J1940; J7050; P9016; P9040

== ENCOUNTER 2020-12-09 13:05 | Outpatient (RCR) | payer OTHER, SELFPAY ==
[2020-11-18 19:05] LABS: Basophils % 0.3 %; Eosinophils # 0.1 10^3/uL (0.0-0.8); Eosinophils % 2.4 %; Hematocrit 26.4 % (42.0-52.0); Hemoglobin 8.3 g/dL (11.7-16.6); Lymphocytes # 0.8 10^3/uL (0.8-4.8); Lymphocytes % 29.3 %; Mean Corpuscular HGB Conc 31.4 g/dL (30.0-36.0); Mean Corpuscular Hemoglobin 30.2 pg (28.0-34.0); Mean Platelet Volume 12.7 fL (7.4-10.4); Monocytes # 0.2 10^3/uL (0.2-0.9); Monocytes % 5.2 %; Neutrophils # 1.79 10^3/uL (1.8-7.7); Neutrophils % 62.5 %; Nucleated Red Blood Cells % 0 %; Platelet Count 142 10^3/cmm (130-400); Red Blood Count 2.75 10^6/uL (4.1-5.3); Red Cell Distribution Width 16.6 % (12.1-15.1); White Blood Count 2.9 10^3/uL (4.0-10.0)
[2020-11-18 19:25] LABS: Anion Gap 12.6 (5-19); Blood Urea Nitrogen 8 mg/dL (8-23); Carbon Dioxide 30 mmol/L (22-29); Chloride 103 mmol/L (98-107); Glomerular Filtration Rate 133.2 mL/min (90-130); Glucose 162 mg/dL (65-115); Osmolality Calculated 296 mOsm/kg (285-295); Potassium 3.6 mmol/L (3.5-5.1); Sodium 142 mmol/L (136-145)
[2020-11-25 18:53] LABS: Basophils % 1.3 %; Eosinophils # 0.1 10^3/uL (0.0-0.8); Eosinophils % 2.2 %; Hematocrit 29.6 % (42.0-52.0); Hemoglobin 9.1 g/dL (11.7-16.6); Lymphocytes # 0.6 10^3/uL (0.8-4.8); Lymphocytes % 26.2 %; Mean Corpuscular HGB Conc 30.7 g/dL (30.0-36.0); Mean Corpuscular Hemoglobin 30.5 pg (28.0-34.0); Mean Corpuscular Volume 99.3 fL (80-94); Mean Platelet Volume 12.3 fL (7.4-10.4); Monocytes # 0.2 10^3/uL (0.2-0.9); Monocytes % 6.7 %; Neutrophils # 1.42 10^3/uL (1.8-7.7); Neutrophils % 63.2 %; Nucleated Red Blood Cells % 0 %; Platelet Count 142 10^3/cmm (130-400); Red Blood Count 2.98 10^6/uL (4.1-5.3); Red Cell Distribution Width 19.1 % (12.1-15.1); White Blood Count 2.3 10^3/uL (4.0-10.0)
[2020-12-02 18:07] LABS: Basophils % 0.5 %; Eosinophils % 2.1 %; Hematocrit 26.3 % (42.0-52.0); Hemoglobin 8.2 g/dL (11.7-16.6); Lymphocytes # 0.9 10^3/uL (0.8-4.8); Lymphocytes % 46.6 %; Mean Corpuscular HGB Conc 31.2 g/dL (30.0-36.0); Mean Corpuscular Hemoglobin 30.4 pg (28.0-34.0); Mean Corpuscular Volume 97.4 fL (80-94); Mean Platelet Volume 11.4 fL (7.4-10.4); Monocytes # 0.1 10^3/uL (0.2-0.9); Monocytes % 5.2 %; Neutrophils % 45.6 %; Nucleated Red Blood Cells % 0 %; Platelet Count 155 10^3/cmm (130-400); Red Cell Distribution Width 18.5 % (12.1-15.1); White Blood Count 1.9 10^3/uL (4.0-10.0)
[2020-12-02 18:41] LABS: Alanine Aminotransferase 12 U/L (0-41); Albumin Level 3.9 g/dL (3.5-5.2); Alkaline Phosphatase 89 IU/L (40-130); Aspartate Amino Transferase 22 U/L (0-40); Blood Urea Nitrogen 6 mg/dL (8-23); Calcium 8.6 mg/dL (8.5-10.5); Carbon Dioxide 31 mmol/L (22-29); Chloride 103 mmol/L (98-107); Globulin 2.1 g/dL (1.3-4.6); Glomerular Filtration Rate 164.4 mL/min (90-130); Glucose 78 mg/dL (65-115); Lactate Dehydrogenase 105 U/L (135-225); Osmolality Calculated 288 mOsm/kg (285-295); Sodium 141 mmol/L (136-145); Total Bilirubin 1.3 mg/dL (0.15-1.2)
[2020-12-02 20:26] LABS: Neutrophils # 0.88 10^3/uL (1.8-7.7)
[2020-12-09 16:50] LABS: Basophils % 1.4 %; Eosinophils % 2.2 %; Hemoglobin 8.3 g/dL (11.7-16.6); Lymphocytes # 0.6 10^3/uL (0.8-4.8); Lymphocytes % 42.8 %; Mean Corpuscular HGB Conc 31.9 g/dL (30.0-36.0); Mean Corpuscular Hemoglobin 31.6 pg (28.0-34.0); Mean Corpuscular Volume 98.9 fL (80-94); Mean Platelet Volume 11.1 fL (7.4-10.4); Monocytes # 0.1 10^3/uL (0.2-0.9); Monocytes % 9.4 %; Neutrophils % 44.2 %; Nucleated Red Blood Cells % 0 %; Platelet Count 190 10^3/cmm (130-400); Red Blood Count 2.63 10^6/uL (4.1-5.3); Red Cell Distribution Width 20.4 % (12.1-15.1); White Blood Count 1.4 10^3/uL (4.0-10.0)
[2020-12-10 09:41] LABS: Neutrophils # 0.61 10^3/uL (1.8-7.7)
== END 2020-12-12 23:59 | disposition home or self-care (01) ==
LOC: ONCMED 13:05
PROVIDERS: Visit Provider Internal Medicine Medical Oncology
DX: E83.111 Hemochromatosis due to repeated red blood cell transfusions (principal); D46.1 Refractory anemia with ring sideroblasts
CPT/HCPCS: 80048; 80053; 83615; 85025

== ENCOUNTER 2021-01-07 05:44 | Outpatient (RCR) | payer OTHER, MEDICARE, SELFPAY ==
[2020-12-16 15:41] LABS: Eosinophils % 1.5 %; Hematocrit 23.3 % (42.0-52.0); Hemoglobin 7.7 g/dL (11.7-16.6); Lymphocytes # 0.7 10^3/uL (0.8-4.8); Lymphocytes % 35.6 %; Mean Corpuscular Hemoglobin 31.8 pg (28.0-34.0); Mean Corpuscular Volume 96.3 fL (80-94); Monocytes # 0.1 10^3/uL (0.2-0.9); Monocytes % 5.7 %; Neutrophils # 1.09 10^3/uL (1.8-7.7); Neutrophils % 56.2 %; Nucleated Red Blood Cells % 0 %; Platelet Count 155 10^3/cmm (130-400); Red Blood Count 2.42 10^6/uL (4.1-5.3); Red Cell Distribution Width 20.5 % (12.1-15.1); White Blood Count 1.9 10^3/uL (4.0-10.0)
[2020-12-17] VITALS (10 sets, daily range): BP systolic 92–113; BP diastolic 57–71; PULSE 64–72; RESP 16; TEMP 36.1–37; O2SAT 95–99
[2020-12-17] MEDS: sodium chloride 0.9% 250 ML 75 ML IV (08:45)
[2020-12-17] MEDS: diphenhydrAMINE 25 mg Capsule PO (08:45)
[2020-12-17] MEDS: acetaminophen 325 mg Tablet 650 MG PO (08:45)
[2020-12-17] MEDS: FUROsemide 10 mg/mL SDV 2mL 20 MG IV (11:05)
[2020-12-23 14:44] LABS: Basophils % 0.8 %; Eosinophils % 2.4 %; Hematocrit 24.4 % (42.0-52.0); Hemoglobin 7.9 g/dL (11.7-16.6); Lymphocytes # 0.5 10^3/uL (0.8-4.8); Lymphocytes % 40.5 %; Mean Corpuscular HGB Conc 32.4 g/dL (30.0-36.0); Mean Corpuscular Hemoglobin 30.9 pg (28.0-34.0); Mean Corpuscular Volume 95.3 fL (80-94); Mean Platelet Volume 12.2 fL (7.4-10.4); Monocytes # 0.1 10^3/uL (0.2-0.9); Monocytes % 8.7 %; Neutrophils % 47.6 %; Nucleated Red Blood Cells % 0 %; Platelet Count 136 10^3/cmm (130-400); Red Blood Count 2.56 10^6/uL (4.1-5.3); Red Cell Distribution Width 19.2 % (12.1-15.1); White Blood Count 1.3 10^3/uL (4.0-10.0)
[2020-12-25] MEDS: sodium chloride 0.9% 250 ML 999 ML IV (10:20)
[2020-12-25] MEDS: diphenhydrAMINE 25 mg Capsule PO (10:20)
[2020-12-25] MEDS: acetaminophen 325 mg Tablet 650 MG PO (10:20)
[2020-12-25 10:35] VITALS: BP 84/46; PULSE 78; RESP 17; RESP 18; TEMP 36.5; O2SAT 95
[2020-12-25 10:50] VITALS: BP 81/46; PULSE 77; RESP 18; TEMP 36.8; O2SAT 95
[2020-12-25] MEDS: FUROsemide 10 mg/mL SDV 2mL 20 MG IV (12:35)
[2020-12-25 12:50] VITALS: BP 87/54; PULSE 72; RESP 18; TEMP 36.6; O2SAT 97
[2020-12-25 14:35] VITALS: BP 93/62; PULSE 75; RESP 18; TEMP 36.8; O2SAT 97
[2020-12-30 16:50] LABS: Basophils % 0.6 %; Eosinophils # 0.1 10^3/uL (0.0-0.8); Eosinophils % 2.9 %; Hematocrit 29.5 % (42.0-52.0); Hemoglobin 9.5 g/dL (11.7-16.6); Lymphocytes # 0.7 10^3/uL (0.8-4.8); Lymphocytes % 40.8 %; Mean Corpuscular HGB Conc 32.2 g/dL (30.0-36.0); Mean Corpuscular Hemoglobin 30.4 pg (28.0-34.0); Mean Corpuscular Volume 94.2 fL (80-94); Mean Platelet Volume 12.4 fL (7.4-10.4); Monocytes # 0.1 10^3/uL (0.2-0.9); Monocytes % 7.5 %; Neutrophils % 47.6 %; Nucleated Red Blood Cells % 0 %; Platelet Count 179 10^3/cmm (130-400); Red Blood Count 3.13 10^6/uL (4.1-5.3); Red Cell Distribution Width 18.3 % (12.1-15.1); White Blood Count 1.7 10^3/uL (4.0-10.0)
[2020-12-30 17:11] LABS: Neutrophils # 0.83 10^3/uL (1.8-7.7); Slide Review Slide Review Perform
[2021-01-06 15:51] LABS: Basophils % 0.7 %; Eosinophils % 2.1 %; Hematocrit 22.2 % (42.0-52.0); Hemoglobin 7.1 g/dL (11.7-16.6); Lymphocytes # 0.6 10^3/uL (0.8-4.8); Lymphocytes % 40.7 %; Mean Corpuscular Hemoglobin 30.5 pg (28.0-34.0); Mean Corpuscular Volume 95.3 fL (80-94); Mean Platelet Volume 12.3 fL (7.4-10.4); Monocytes # 0.1 10^3/uL (0.2-0.9); Monocytes % 7.1 %; Neutrophils % 49.4 %; Nucleated Red Blood Cells % 0 %; Platelet Count 157 10^3/cmm (130-400); Red Blood Count 2.33 10^6/uL (4.1-5.3); White Blood Count 1.4 10^3/uL (4.0-10.0)
[2021-01-06 16:08] LABS: Neutrophils # 0.69 10^3/uL (1.8-7.7); Slide Review Slide Review Perform
[2021-01-06 17:48] LABS: Blood Urea Nitrogen 12 mg/dL (8-23); Calcium 8.4 mg/dL (8.5-10.5); Carbon Dioxide 27 mmol/L (22-29); Chloride 101 mmol/L (98-107); Glomerular Filtration Rate 164.4 mL/min (90-130); Glucose 118 mg/dL (65-115); Osmolality Calculated 285 mOsm/kg (285-295); Sodium 137 mmol/L (136-145)
[2021-01-07] VITALS (8 sets, daily range): BP systolic 85–101; BP diastolic 53–66; PULSE 78–89; RESP 18; TEMP 36.6–37.2; O2SAT 91–98
[2021-01-07] MEDS: sodium chloride 0.9% 250 ML 75 ML IV (11:00)
[2021-01-07] MEDS: diphenhydrAMINE 25 mg Capsule PO (11:00)
[2021-01-07] MEDS: acetaminophen 325 mg Tablet 650 MG PO (11:00)
[2021-01-07] MEDS: FUROsemide 10 mg/mL SDV 2mL 20 MG IV (13:00)
== END 2021-01-12 23:59 | disposition home or self-care (01) ==
LOC: ONCMED 05:44
PROVIDERS: Internal Medicine Medical Oncology; Visit Provider Nurse Practitioner
DX: D46.1 Refractory anemia with ring sideroblasts (principal); E83.111 Hemochromatosis due to repeated red blood cell transfusions; D50.9 Iron deficiency anemia, unspecified
CPT/HCPCS: 36430; 80048; 85025; 86850; 86900; 86920; J1940; J7050; P9040

== ENCOUNTER → 2021-01-20 08:59 | Outpatient (BNVA) | payer MEDICARE, SELFPAY | PROVIDERS: Referring Provider Internal Medicine Medical Oncology; Visit Provider Internal Medicine Medical Oncology | DX: E83.111 Hemochromatosis due to repeated red blood cell transfusions (principal); D46.1 Refractory anemia with ring sideroblasts; E83.110 Hereditary hemochromatosis | CPT/HCPCS: 85025 ==

== ENCOUNTER 2021-02-03 10:16 | Outpatient (RCR) | payer OTHER, MEDICARE, SELFPAY ==
[2021-01-13 12:10] LABS: Basophils % 1.3 %; Eosinophils % 1.9 %; Hematocrit 23.3 % (42.0-52.0); Hemoglobin 7.4 g/dL (11.7-16.6); Lymphocytes # 0.6 10^3/uL (0.8-4.8); Lymphocytes % 35.6 %; Mean Corpuscular HGB Conc 31.8 g/dL (30.0-36.0); Mean Corpuscular Hemoglobin 30.2 pg (28.0-34.0); Mean Corpuscular Volume 95.1 fL (80-94); Monocytes # 0.1 10^3/uL (0.2-0.9); Monocytes % 6.3 %; Nucleated Red Blood Cells % 0 %; Platelet Count 147 10^3/cmm (130-400); Red Blood Count 2.45 10^6/uL (4.1-5.3); Red Cell Distribution Width 16.9 % (12.1-15.1); White Blood Count 1.6 10^3/uL (4.0-10.0)
[2021-01-13 12:55] LABS: Neutrophils # 0.85 10^3/uL (1.8-7.7); Slide Review Slide Review Perform
[2021-01-14] VITALS (10 sets, daily range): BP systolic 85–91; BP diastolic 48–61; PULSE 62–76; RESP 18; TEMP 36.4–37; O2SAT 93–98
[2021-01-14] MEDS: acetaminophen 325 mg Tablet 650 MG PO (10:30)
[2021-01-14] MEDS: diphenhydrAMINE 25 mg Capsule PO (10:30)
[2021-01-14] MEDS: sodium chloride 0.9% 250 ML 999 ML IV (15:30)
[2021-01-21] MEDS: acetaminophen 325 mg Tablet 650 MG PO (11:45)
[2021-01-21] MEDS: diphenhydrAMINE 25 mg Capsule PO (11:45)
[2021-01-21] MEDS: sodium chloride 0.9% 250 ML 999 ML IV (13:55)
[2021-01-21] MEDS: FUROsemide 10 mg/mL SDV 2mL 20 MG IV (15:45)
[2021-02-03 11:10] LABS: Basophils % 0.8 %; Eosinophils % 0.8 %; Hematocrit 26.8 % (42.0-52.0); Hemoglobin 8.8 g/dL (11.7-16.6); Lymphocytes # 0.8 10^3/uL (0.8-4.8); Lymphocytes % 21.2 %; Mean Corpuscular HGB Conc 32.8 g/dL (30.0-36.0); Mean Corpuscular Hemoglobin 30.6 pg (28.0-34.0); Mean Corpuscular Volume 93.1 fL (80-94); Mean Platelet Volume 11.9 fL (7.4-10.4); Monocytes # 0.2 10^3/uL (0.2-0.9); Monocytes % 6.1 %; Neutrophils # 2.67 10^3/uL (1.8-7.7); Neutrophils % 70.8 %; Nucleated Red Blood Cells % 0 %; Platelet Count 209 10^3/cmm (130-400); Red Blood Count 2.88 10^6/uL (4.1-5.3); White Blood Count 3.8 10^3/uL (4.0-10.0)
[2021-02-03] MEDS: sodium chloride 0.9% 250 ML 999 ML IV (14:00)
[2021-02-03] MEDS: acetaminophen 325 mg Tablet 650 MG PO (14:00)
[2021-02-03] MEDS: diphenhydrAMINE 25 mg Capsule PO (14:00)
[2021-02-03 14:05] VITALS: BP 82/43; PULSE 87; RESP 18; TEMP 36.6; O2SAT 96
[2021-02-03 14:20] VITALS: BP 86/54; PULSE 84; RESP 18; TEMP 36.6; O2SAT 96
[2021-02-03 14:35] VITALS: BP 84/56; PULSE 82; RESP 18; TEMP 36.6; O2SAT 96
[2021-02-03] MEDS: FUROsemide 10 mg/mL SDV 2mL 20 MG IV (16:00)
[2021-02-03 16:10] VITALS: BP 92/57; PULSE 87; RESP 18; TEMP 36.6; O2SAT 96
== END 2021-02-11 23:59 | disposition home or self-care (01) ==
LOC: ONCMED 10:16
PROVIDERS: Nurse Practitioner; Visit Provider Internal Medicine Hematology & Oncology
DX: E83.111 Hemochromatosis due to repeated red blood cell transfusions (principal); D46.1 Refractory anemia with ring sideroblasts; Z79.899 Other long term (current) drug therapy
CPT/HCPCS: 36415; 36430; 85025; 86850; 86900; 86920; J1940; J7050; P9016; P9040

== ENCOUNTER 2021-02-20 07:42 | Outpatient (RCR) | payer OTHER, MEDICARE, SELFPAY ==
[2021-02-20 09:09] LABS: Eosinophils % 1.6 %; Hematocrit 24.1 % (42.0-52.0); Hemoglobin 7.8 g/dL (11.7-16.6); Lymphocytes # 0.6 10^3/uL (0.8-4.8); Lymphocytes % 31.6 %; Mean Corpuscular HGB Conc 32.4 g/dL (30.0-36.0); Mean Corpuscular Volume 92.7 fL (80-94); Mean Platelet Volume 12.1 fL (7.4-10.4); Monocytes # 0.1 10^3/uL (0.2-0.9); Monocytes % 6.7 %; Neutrophils # 1.13 10^3/uL (1.8-7.7); Neutrophils % 58.6 %; Nucleated Red Blood Cells % 0 %; Platelet Count 172 10^3/cmm (130-400); Red Cell Distribution Width 15.5 % (12.1-15.1); White Blood Count 1.9 10^3/uL (4.0-10.0)
[2021-02-20 09:38] LABS: Slide Review Slide Review Perform
[2021-02-20 10:50] VITALS: BP 73/39; PULSE 75; RESP 18; TEMP 36.8; O2SAT 98; O2SAT 99
[2021-02-20] MEDS: acetaminophen 325 mg Tablet 650 MG PO (10:50)
[2021-02-20] MEDS: sodium chloride 0.9% 250 ML 999 ML IV (10:50)
[2021-02-20] MEDS: diphenhydrAMINE 25 mg Capsule PO (10:50)
[2021-02-20 11:05] VITALS: BP 72/41; PULSE 74; RESP 18; TEMP 36.8; O2SAT 98
[2021-02-20 11:20] VITALS: BP 74/42; PULSE 74; RESP 18; TEMP 36.9; O2SAT 98
[2021-02-20 11:50] VITALS: BP 72/40; PULSE 74; RESP 18; TEMP 36.9; O2SAT 98
[2021-02-20 12:30] VITALS: BP 77/44; PULSE 74; RESP 18; TEMP 36.8; O2SAT 98
== END 2021-02-25 06:00 | disposition home or self-care (01) ==
LOC: ONCMED 07:42
PROVIDERS: Visit Provider Internal Medicine Medical Oncology
DX: E83.111 Hemochromatosis due to repeated red blood cell transfusions (principal); D46.1 Refractory anemia with ring sideroblasts; Z79.899 Other long term (current) drug therapy
CPT/HCPCS: 36415; 36430; 85025; 86850; 86900; 86920; J7050; P9040

== ENCOUNTER 2021-02-25 15:42 | Inpatient (IN) | payer OTHER, MEDICARE, SELFPAY ==
[2021-02-25] VITALS (10 sets, daily range): BP systolic 71–96; BP diastolic 35–52; PULSE 64–75; RESP 9–21; TEMP 36.6–37.6; O2SAT 95–99; BMI 19.0
--- NOTE | 2021-02-25 16:30 | ECG_ITS ---
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 Measurements Intervals [place] Rate: 75 P: 78 MN: 171 QRS: 63 QRSD: 86 T: 60 QT: 380 QTc: 427 Interpretive Statements SINUS RHYTHM SEPTAL MYOCARDIAL INFARCTION [40+ ms Q WAVE IN V1/V2], OF INDETERMINATE AGE MODERATE T-WAVE ABNORMALITY, CONSIDER ANTEROLATERAL ISCHEMIA [-0.1+ mV T WAVE IN V3-V6] WARNING: DATA QUALITY MAY AFFECT INTERPRETATION Compared to ECG 01/10/2019 21:58:35 No significant changes Electronically Signed On 02-25-2021 21:38:08 CDT by Shikha Antony M.D. [id number]
--- NOTE | 2021-02-25 17:46 | XRR_ITS ---
PROCEDURE INFORMATION: Exam: XR Chest Exam date and time: 02/25/2021 5:46 PM Age: 70 years old Clinical indication: Cough and dyspnea; Smoker's cough; Additional info: Dyspnea/cough TECHNIQUE: Imaging protocol: XR of the chest. Views: 1 view. COMPARISON: CR Chest 2 views* [id number] 05/10/2019 12:35 PM FINDINGS: Lungs: Emphysematous lung changes. No airspace consolidation. No suspicious pulmonary lesion. Pleural spaces: Unremarkable. No pleural effusion. No pneumothorax. Heart/Mediastinum: Unremarkable. No cardiomegaly. Vasculature: Calcified plaques in the aortic arch. Bones/joints: Unremarkable. XR/XR chest 1V portable [id number] IMPRESSION: Negative for acute pulmonary disease or suspicious pulmonary lesion.
--- NOTE | 2021-02-25 17:46 | CTR_ITS ---
PROCEDURE INFORMATION: Exam: CT Abdomen And Pelvis With Contrast Exam date and time: 02/25/2021 5:46 PM Age: 70 years old Clinical indication: Abdominal pain; Generalized; Additional info: Constipation, abd cramping, frequent blood tx, n/v/d, hypotension, weakness. TECHNIQUE: Imaging protocol: Computed tomography of the abdomen and pelvis with contrast. Radiation optimization: All CT scans at this facility use at least one of these dose optimization techniques: automated exposure control; mA and/or kV adjustment per patient size (includes targeted exams where dose is matched to clinical indication); or iterative reconstruction. Contrast material: OMNI 300; Contrast volume: 75 ml; Contrast route: INTRAVENOUS (IV); COMPARISON: CR (CHEST, ) 02/25/2021 5:57 PM RADIATION DOSE METRICS: Total DLP (mGy-cm): 1068 FINDINGS: Lungs: Mild emphysematous lung changes. Liver: Normal. No mass. Gallbladder and bile ducts: Mild nonspecific gallbladder wall thickening. Negative for biliary system dilation. Cholelithiasis. Pancreas: Normal. No ductal dilation. Spleen: Splenomegaly. Splenic length at least 16 cm. Adrenal glands: Normal. No mass. Kidneys and ureters: Normal. No hydronephrosis. Stomach and bowel: Fairly extensive edematous wall thickening changes of the right colon. Mild wall thickening of the terminal ileum. Negative for small bowel obstruction. Negative for bowel perforation. Appendix: No evidence of appendicitis. Intraperitoneal space: Small volume scattered abdominopelvic free fluid. Diffuse mesenteric edema. Vasculature: Patent mesenteric vasculature. Scattered atherosclerosis. No acute vascular occlusion identified. Negative for aneurysm. Lymph nodes: Unremarkable. No enlarged lymph nodes. Urinary bladder: Unremarkable as visualized. Reproductive: Mild severity prostate gland enlargement. Bones/joints: Unremarkable. No acute fracture. Soft tissues: No active abdominopelvic bleeding. CT/CT abdomen pelvis w con* [id number] IMPRESSION: 1. Nonspecific wall thickening and edematous changes involving distal small bowel loops and the right colon. This could reflect a nonspecific enterocolitis pattern, or alternatively be related to the overall fluid status as there is generalized 3rd spacing of fluid. 2. Nonspecific moderate severity splenomegaly. 3. Cholelithiasis with mild nonspecific gallbladder wall thickening which could also be related to the underlying fluid status. Radiation Dose CTDIVOL = (mGy): DLP = 1068 (mGy-cm)
--- NOTE | 2021-02-25 17:55 | ED_ITS ---
Documented by User: Vargas Hall DO 03/02/21 13:57 HPI - General Adult General: Chief complaint: ER Hold Stated complaint: [facility] Time Seen by Provider: 02/25/21 17:12 History of Present Illness: HPI narrative: 70-year-old male complaining of generalized confusion weakness. He has a hx of anemai and is regualrly transfused. He was transfused late last week. Denies chest pain denies shortness of breath Onset (ago): hour(s) Severity: moderate Associated symptoms: Reports decreased appetite, malaise, nausea, palpitations and weakness; Deny chest pain, confusion, cough, diaphoresis, dyspnea, fevers/chills, headache(s), rash, seizures, short of breath, syncope or vomiting Treatments prior to arrival: none Review of Systems Const: Reports: malaise; Denies: diaphoresis ENMT: Denies: throat pain, ear or mastoid pain, nasal discharge or nasal congestion Card: Reports: palpitations; Denies: chest pain or syncope Resp: Denies: dyspnea GI: Reports: nausea; Denies: vomiting : Denies: flank pain, dysuria, urinary frequency or urinary urgency Skin/Breast: Denies: rash Neuro: Denies: headache(s) or confusion PFSH ED PFSH: Medical History Anemia CAD (coronary artery disease) COPD (chronic obstructive pulmonary disease) Diastolic CHF Hemochromatosis MDS (myelodysplastic syndrome) Neutropenia Social History Smoking and tobacco status: current every day smoker cigarettes Packs smoked per day: 1 Alcohol intake: never Physical Exam Const: GENERAL APPEARANCE: ill appearing HENMT: COMMON NORMALS: normocephalic, atraumatic and hearing grossly normal bilaterally HEAD & SCALP: normocephalic and atraumatic Neck/C-Spine: COMMON NORMALS: no JVD Resp: COMMON NORMALS: normal respiratory effort, No retractions, No use of accessory muscles and clear to auscultation bilaterally AUSCULTATION: clear to auscultation bilaterally Cardio: COMMON NORMALS: no JVD, regular rate, regular rhythm and No murmurs present (Cardio) RATE: regular rate RHYTHM: regular rhythm GI: COMMON NORMALS: Soft to palpation and No hepatosplenomegaly present AUSCULTATION: Yes normoactive bowel sounds PALPATION: Yes Soft to palpation, No Tenderness to palpation present (GI), No Guarding due to palpation present (GI) and Yes No hepatosplenomegaly present Extremity: COMMON NORMALS: normal to inspection, capillary refill normal, no clubbing, cyanosis or edema, no calf tenderness and no pedal edema Skin: COMMON NORMALS: no rashes or lesions noted GENERAL SKIN EXAM: no rashes or lesions noted Course Vital Signs: Vital signs: Vital Signs Temperature 98.0 F 02/26/21 09:57 Pulse Rate 72 02/26/21 09:57 Respiratory Rate 21 H 02/26/21 09:57 Blood Pressure 102/60 02/26/21 09:57 Pulse Oximetry 100 02/26/21 08:00 MDM - General Adult MDM Narrative: Medical decision making narrative: Care turned over to Dr. Ayon at change of see his note from diagnosis disposition Lab Data: Labs: Lab Results 02/25/21 02/25/21 02/25/21 Range/Units 19:34 19:34 19:46 WBC 2.0 L (4.0-10.0) 10^3/ uL RBC 2.31 L (4.1-5.3) 10^6/u L Hgb 7.1 L (11.7-16.6) g/dL Hct 21.3 L (42.0-52.0) % MCV 92.2 (80-94) fL MCH 30.7 (28.0-34.0) pg MCHC 33.3 (30.0-36.0) g/dL RDW 16.0 H (12.1-15.1) % Plt Count 146 (130-400) 10^3/c mm MPV 12.0 H (7.4-10.4) fL Neut % (Auto) 49.5 % Lymph % (Auto) 42.5 % [place] % (Auto) 6.5 % Eos % (Auto) 1.0 % Baso % (Auto) 0.5 % Neut # (Auto) 0.99 L (1.8-7.7) 10^3/u L Lymph # (Auto) 0.9 (0.8-4.8) 10^3/u L [place] # (Auto) 0.1 L (0.2-0.9) 10^3/u L Eos # (Auto) 0.0 (0.0-0.8) 10^3/u L Baso # (Auto) 0.0 (0.0-0.1) 10^3/u L Nucleated RBC % (a uto) 0 % Nucleated RBCs # 0.0 /100WBC Sodium (136-145) mmol/L Potassium (3.5-5.1) mmol/L Chloride (98-107) mmol/L Carbon Dioxide (22-29) mmol/L Anion Gap (5-19) BUN (8-23) mg/dL Creatinine (0.7-1.2) mg/dL GFR Calculation (90-130) mL/min Glucose (65-115) mg/dL Calculated Osmolal ity (285-295) mOsm/k g Lactic Acid (0.5-2.2) mmol/L Calcium (8.5-10.5) mg/dL Total Bilirubin (0.15-1.2) mg/dL AST (0-40) U/L ALT (0-41) U/L Alkaline Phosphata se (40-130) IU/L Total Protein (6.6-8.7) g/dL Albumin (3.5-5.2) g/dL Globulin (1.3-4.6) g/dL Procalcitonin (0-0.5) ng/mL TSH (0.27-4.20) uIU/ mL Random Cortisol (2.47-19.5) ug/d L Urine Color (Yellow) Urine Appearance (CLEAR) Urine pH (5-7) Ur Specific Gravit y (1.005-1.030) Urine Protein (Negative) Urine Glucose (UA) (Normal) Urine Ketones (Negative) Urine Blood (Negative) Urine Nitrate (Negative) Urine Bilirubin (Negative) Urine Urobilinogen (Negative) mg/dL Ur Leukocyte Kiley ase (Negative) Nasal/Oral COVID-1 9 PCR Not detected SARS-CoV-2 Ag (Rap id) Negative (Negative) Rho(D) Type Antibody Screen Crossmatch 02/25/21 02/25/21 02/25/21 Range/Units 19:46 19:46 19:46 WBC (4.0-10.0) 10^3/ uL RBC (4.1-5.3) 10^6/u L Hgb (11.7-16.6) g/dL Hct (42.0-52.0) % MCV (80-94) fL MCH (28.0-34.0) pg MCHC (30.0-36.0) g/dL RDW (12.1-15.1) % Plt Count (130-400) 10^3/c mm MPV (7.4-10.4) fL Neut % (Auto) % Lymph % (Auto) % [place] % (Auto) % Eos % (Auto) % Baso % (Auto) % Neut # (Auto) (1.8-7.7) 10^3/u L Lymph # (Auto) (0.8-4.8) 10^3/u L [place] # (Auto) (0.2-0.9) 10^3/u L Eos # (Auto) (0.0-0.8) 10^3/u L Baso # (Auto) (0.0-0.1) 10^3/u L Nucleated RBC % (a uto) % Nucleated RBCs # /100WBC Sodium 136 (136-145) mmol/L Potassium 3.5 (3.5-5.1) mmol/L Chloride 101 (98-107) mmol/L Carbon Dioxide 29 (22-29) mmol/L Anion Gap 9.5 (5-19) BUN 6 L (8-23) mg/dL Creatinine 0.6 L (0.7-1.2) mg/dL GFR Calculation 133.2 H (90-130) mL/min Glucose 85 (65-115) mg/dL Calculated Osmolal ity 279 L (285-295) mOsm/k g Lactic Acid 1.1 (0.5-2.2) mmol/L Calcium 8.0 L (8.5-10.5) mg/dL Total Bilirubin 2.5 H (0.15-1.2) mg/dL AST 29 (0-40) U/L ALT 19 (0-41) U/L Alkaline Phosphata se 97 (40-130) IU/L Total Protein 5.1 L (6.6-8.7) g/dL Albumin 3.4 L (3.5-5.2) g/dL Globulin 1.7 (1.3-4.6) g/dL Procalcitonin 0.22 (0-0.5) ng/mL TSH 0.84 (0.27-4.20) uIU/ mL Random Cortisol 7.16 (2.47-19.5) ug/d L Urine Color (Yellow) Urine Appearance (CLEAR) Urine pH (5-7) Ur Specific Gravit y (1.005-1.030) Urine Protein (Negative) Urine Glucose (UA) (Normal) Urine Ketones (Negative) Urine Blood (Negative) Urine Nitrate (Negative) Urine Bilirubin (Negative) Urine Urobilinogen (Negative) mg/dL Ur Leukocyte Kiley ase (Negative) Nasal/Oral COVID-1 9 PCR SARS-CoV-2 Ag (Rap id) (Negative) Rho(D) Type Antibody Screen Crossmatch 02/25/21 02/25/21 Range/Units 20:08 21:27 WBC (4.0-10.0) 10^3/ uL RBC (4.1-5.3) 10^6/u L Hgb (11.7-16.6) g/dL Hct (42.0-52.0) % MCV (80-94) fL MCH (28.0-34.0) pg MCHC (30.0-36.0) g/dL RDW (12.1-15.1) % Plt Count (130-400) 10^3/c mm MPV (7.4-10.4) fL Neut % (Auto) % Lymph % (Auto) % [place] % (Auto) % Eos % (Auto) % Baso % (Auto) % Neut # (Auto) (1.8-7.7) 10^3/u L Lymph # (Auto) (0.8-4.8) 10^3/u L [place] # (Auto) (0.2-0.9) 10^3/u L Eos # (Auto) (0.0-0.8) 10^3/u L Baso # (Auto) (0.0-0.1) 10^3/u L Nucleated RBC % (a uto) % Nucleated RBCs # /100WBC Sodium (136-145) mmol/L Potassium (3.5-5.1) mmol/L Chloride (98-107) mmol/L Carbon Dioxide (22-29) mmol/L Anion Gap (5-19) BUN (8-23) mg/dL Creatinine (0.7-1.2) mg/dL GFR Calculation (90-130) mL/min Glucose (65-115) mg/dL Calculated Osmolal ity (285-295) mOsm/k g Lactic Acid (0.5-2.2) mmol/L Calcium (8.5-10.5) mg/dL Total Bilirubin (0.15-1.2) mg/dL AST (0-40) U/L ALT (0-41) U/L Alkaline Phosphata se (40-130) IU/L Total Protein (6.6-8.7) g/dL Albumin (3.5-5.2) g/dL Globulin (1.3-4.6) g/dL Procalcitonin (0-0.5) ng/mL TSH (0.27-4.20) uIU/ mL Random Cortisol (2.47-19.5) ug/d L Urine Color Traci (Yellow) Urine Appearance Clear (CLEAR) Urine pH 7 (5-7) Ur Specific Gravit y 1.010 (1.005-1.030) Urine Protein Neg (Negative) Urine Glucose (UA) Norm (Normal) Urine Ketones Negative (Negative) Urine Blood Neg (Negative) Urine Nitrate Negative (Negative) Urine Bilirubin 1+ H (Negative) Urine Urobilinogen 4+ H (Negative) mg/dL Ur Leukocyte Kiley ase Negative (Negative) Nasal/Oral COVID-1 9 PCR SARS-CoV-2 Ag (Rap id) (Negative) Rho(D) Type Positive / 4+ Antibody Screen Negative Crossmatch See Detail Discharge Plan Discharge Patient Disposition: Admitted As Inpatient Admit Provider: Farideh Oswald Clinical Impression: Septic shock Anemia Qualifiers: Anemia type: bone marrow failure Bone marrow failure anemia type: other bone marrow failure Qualified Code(s): D61.89 - Other specified aplastic anemias and other bone marrow failure syndromes Condition: Stable Coding Level of Care Code ED Precipitate Washer for g Fwd Exam Comprehensive Documented by User: Sameer Ayon MD 02/26/21 02:49 HPI - General Adult General: Chief complaint: ER Hold Stated complaint: [facility] Time Seen by Provider: 02/25/21 17:12 History of Present Illness: Associated symptoms: Deny chest pain, dyspnea, hea dache(s), nausea, rash or vomiting Review of Systems Const: Reports: fever(s) and body aches; Denies: chills or change in appetite Eyes: Denies: blurry vision or eye discomfort ENMT: Denies: throat pain or dental pain Card: Denies: chest pain Resp: Denies: dyspnea GI: Reports: abdominal pain; Denies: nausea, vomiting or diarrhea : Denies: dysuria Musc: Denies: neck pain or back pain Skin/Breast: Denies: rash Neuro: Denies: headache(s) Psych: Denies: depression Gaurav/Lymph: Denies: easy bruising All/Imm: Denies: urticaria PFSH ED PFSH: Medical History Anemia CAD (coronary artery disease) COPD (chronic obstructive pulmonary disease) Diastolic CHF Hemochromatosis MDS (myelodysplastic syndrome) Neutropenia Social History Smoking and tobacco status: current every day smoker cigarettes Packs smoked per day: 1 Alcohol intake: never Physical Exam Const: COMMON NORMALS: patient oriented x3 GENERAL APPEARANCE: ill appearing and frail appearing HENMT: COMMON NORMALS: normocephalic and atraumatic HEAD & SCALP: normocephalic and atraumatic Eye: COMMON NORMALS: Equal, round and reactive pupils present and EOMs intact bilaterally PUPIL: Yes Equal, round and reactive pupils present Neck/C-Spine: COMMON NORMALS: full ROM and supple Chest: COMMONS NORMALS: normal inspection of the chest and normal palpation of entire chest wall Resp: COMMON NORMALS: normal respiratory effort, No retractions, No use of accessory muscles and clear to auscultation bilaterally AUSCULTATION: clear to auscultation bilaterally Cardio: COMMON NORMALS: regular rate, regular rhythm and No murmurs present (Cardio) RATE: regular rate RHYTHM: regular rhythm GI: COMMON NORMALS: Normal to inspection, nondistended, normoactive bowel sounds present, Soft to palpation, non-tender and no masses PALPATION: Yes Soft to palpation Extremity: COMMON NORMALS: normal to inspection and full ROM Neuro: COMMON NORMALS: patient oriented x3, moves all extremities and no focal motor deficits Psych: COMMON NORMALS: mental status grossly normal, Normal thought process present and cooperative THOUGHT PROCESS: Normal thought process present Skin: COMMON NORMALS: no rashes or lesions noted and no wounds GENERAL SKIN EXAM: no rashes or lesions noted Procedures Central Line Placement Right IJ: Time Out Performed: Yes Patient Placed on Monitor/Pulse Ox: Yes MD Prep: mask, gown and gloves Central Line Prep: Chlorhexidine scrub Local Anesthetic: lidocaine 1% Amount of anesthesia used (mL): 3 Ultrasound Used for Placement: Yes Central Line Lumen Inserted: triple Post Procedure: sutured in place Post Procedure X-Ray: tip of catheter in good position and no pneumothorax seen Patient Tolerated Procedure: well Complications: none Course Vital Signs: Vital signs: Vital Signs Temperature 98.0 F 02/26/21 09:57 Pulse Rate 72 02/26/21 09:57 Respiratory Rate 21 H 02/26/21 09:57 Blood Pressure 102/60 02/26/21 09:57 Pulse Oximetry 100 02/26/21 08:00 MDM - General Adult MDM Narrative: Medical decision making narrative: Patient presents for septic shock along with anemia. Patient given IV fluids and transfuse 1 unit of blood. He continued to have hypotension and patient had a central line placed and started on pressors. He had IV antibiotics started as well. Patient has been by hospitalist down the ER and will admit to the ICU. Lab Data: Labs: Lab Results 02/25/21 02/25/21 02/25/21 Range/Units 19:34 19:34 19:46 WBC 2.0 L (4.0-10.0) 10^3/ uL RBC 2.31 L (4.1-5.3) 10^6/u L Hgb 7.1 L (11.7-16.6) g/dL Hct 21.3 L (42.0-52.0) % MCV 92.2 (80-94) fL MCH 30.7 (28.0-34.0) pg MCHC 33.3 (30.0-36.0) g/dL RDW 16.0 H (12.1-15.1) % Plt Count 146 (130-400) 10^3/c mm MPV 12.0 H (7.4-10.4) fL Neut % (Auto) 49.5 % Lymph % (Auto) 42.5 % [place] % (Auto) 6.5 % Eos % (Auto) 1.0 % Baso % (Auto) 0.5 % Neut # (Auto) 0.99 L (1.8-7.7) 10^3/u L Lymph # (Auto) 0.9 (0.8-4.8) 10^3/u L [place] # (Auto) 0.1 L (0.2-0.9) 10^3/u L Eos # (Auto) 0.0 (0.0-0.8) 10^3/u L Baso # (Auto) 0.0 (0.0-0.1) 10^3/u L Nucleated RBC % (a uto) 0 % Nucleated RBCs # 0.0 /100WBC Sodium (136-145) mmol/L Potassium (3.5-5.1) mmol/L Chloride (98-107) mmol/L Carbon Dioxide (22-29) mmol/L Anion Gap (5-19) BUN (8-23) mg/dL Creatinine (0.7-1.2) mg/dL GFR Calculation (90-130) mL/min Glucose (65-115) mg/dL Calculated Osmolal ity (285-295) mOsm/k g Lactic Acid (0.5-2.2) mmol/L Calcium (8.5-10.5) mg/dL Total Bilirubin (0.15-1.2) mg/dL AST (0-40) U/L ALT (0-41) U/L Alkaline Phosphata se (40-130) IU/L Total Protein (6.6-8.7) g/dL Albumin (3.5-5.2) g/dL Globulin (1.3-4.6) g/dL Procalcitonin (0-0.5) ng/mL TSH (0.27-4.20) uIU/ mL Random Cortisol (2.47-19.5) ug/d L Urine Color (Yellow) Urine Appearance (CLEAR) Urine pH (5-7) Ur Specific Gravit y (1.005-1.030) Urine Protein (Negative) Urine Glucose (UA) (Normal) Urine Ketones (Negative) Urine Blood (Negative) Urine Nitrate (Negative) Urine Bilirubin (Negative) Urine Urobilinogen (Negative) mg/dL Ur Leukocyte Kiley ase (Negative) Nasal/Oral COVID-1 9 PCR Not detected SARS-CoV-2 Ag (Rap id) Negative (Negative) Rho(D) Type Antibody Screen Crossmatch 02/25/21 02/25/21 02/25/21 Range/Units 19:46 19:46 19:46 WBC (4.0-10.0) 10^3/ uL RBC (4.1-5.3) 10^6/u L Hgb (11.7-16.6) g/dL Hct (42.0-52.0) % MCV (80-94) fL MCH (28.0-34.0) pg MCHC (30.0-36.0) g/dL RDW (12.1-15.1) % Plt Count (130-400) 10^3/c mm MPV (7.4-10.4) fL Neut % (Auto) % Lymph % (Auto) % [place] % (Auto) % Eos % (Auto) % Baso % (Auto) % Neut # (Auto) (1.8-7.7) 10^3/u L Lymph # (Auto) (0.8-4.8) 10^3/u L [place] # (Auto) (0.2-0.9) 10^3/u L Eos # (Auto) (0.0-0.8) 10^3/u L Baso # (Auto) (0.0-0.1) 10^3/u L Nucleated RBC % (a uto) % Nucleated RBCs # /100WBC Sodium 136 (136-145) mmol/L Potassium 3.5 (3.5-5.1) mmol/L Chloride 101 (98-107) mmol/L Carbon Dioxide 29 (22-29) mmol/L Anion Gap 9.5 (5-19) BUN 6 L (8-23) mg/dL Creatinine 0.6 L (0.7-1.2) mg/dL GFR Calculation 133.2 H (90-130) mL/min Glucose 85 (65-115) mg/dL Calculated Osmolal ity 279 L (285-295) mOsm/k g Lactic Acid 1.1 (0.5-2.2) mmol/L Calcium 8.0 L (8.5-10.5) mg/dL Total Bilirubin 2.5 H (0.15-1.2) mg/dL AST 29 (0-40) U/L ALT 19 (0-41) U/L Alkaline Phosphata se 97 (40-130) IU/L Total Protein 5.1 L (6.6-8.7) g/dL Albumin 3.4 L (3.5-5.2) g/dL Globulin 1.7 (1.3-4.6) g/dL Procalcitonin 0.22 (0-0.5) ng/mL TSH 0.84 (0.27-4.20) uIU/ mL Random Cortisol 7.16 (2.47-19.5) ug/d L Urine Color (Yellow) Urine Appearance (CLEAR) Urine pH (5-7) Ur Specific Gravit y (1.005-1.030) Urine Protein (Negative) Urine Glucose (UA) (Normal) Urine Ketones (Negative) Urine Blood (Negative) Urine Nitrate (Negative) Urine Bilirubin (Negative) Urine Urobilinogen (Negative) mg/dL Ur Leukocyte Kiley ase (Negative) Nasal/Oral COVID-1 9 PCR SARS-CoV-2 Ag (Rap id) (Negative) Rho(D) Type Antibody Screen Crossmatch 02/25/21 02/25/21 Range/Units 20:08 21:27 WBC (4.0-10.0) 10^3/ uL RBC (4.1-5.3) 10^6/u L Hgb (11.7-16.6) g/dL Hct (42.0-52.0) % MCV (80-94) fL MCH (28.0-34.0) pg MCHC (30.0-36.0) g/dL RDW (12.1-15.1) % Plt Count (130-400) 10^3/c mm MPV (7.4-10.4) fL Neut % (Auto) % Lymph % (Auto) % [place] % (Auto) % Eos % (Auto) % Baso % (Auto) % Neut # (Auto) (1.8-7.7) 10^3/u L Lymph # (Auto) (0.8-4.8) 10^3/u L [place] # (Auto) (0.2-0.9) 10^3/u L Eos # (Auto) (0.0-0.8) 10^3/u L Baso # (Auto) (0.0-0.1) 10^3/u L Nucleated RBC % (a uto) % Nucleated RBCs # /100WBC Sodium (136-145) mmol/L Potassium (3.5-5.1) mmol/L Chloride (98-107) mmol/L Carbon Dioxide (22-29) mmol/L Anion Gap (5-19) BUN (8-23) mg/dL Creatinine (0.7-1.2) mg/dL GFR Calculation (90-130) mL/min Glucose (65-115) mg/dL Calculated Osmolal ity (285-295) mOsm/k g Lactic Acid (0.5-2.2) mmol/L Calcium (8.5-10.5) mg/dL Total Bilirubin (0.15-1.2) mg/dL AST (0-40) U/L ALT (0-41) U/L Alkaline Phosphata se (40-130) IU/L Total Protein (6.6-8.7) g/dL Albumin (3.5-5.2) g/dL Globulin (1.3-4.6) g/dL Procalcitonin (0-0.5) ng/mL TSH (0.27-4.20) uIU/ mL Random Cortisol (2.47-19.5) ug/d L Urine Color Traci (Yellow) Urine Appearance Clear (CLEAR) Urine pH 7 (5-7) Ur Specific Gravit y 1.010 (1.005-1.030) Urine Protein Neg (Negative) Urine Glucose (UA) Norm (Normal) Urine Ketones Negative (Negative) Urine Blood Neg (Negative) Urine Nitrate Negative (Negative) Urine Bilirubin 1+ H (Negative) Urine Urobilinogen 4+ H (Negative) mg/dL Ur Leukocyte Kiley ase Negative (Negative) Nasal/Oral COVID-1 9 PCR SARS-CoV-2 Ag (Rap id) (Negative) Rho(D) Type Positive / 4+ Antibody Screen Negative Crossmatch See Detail Imaging Data^: CT Abd/Pel: Attestation: I personally reviewed and interpreted this imaging study as follows: Radiologist's impression: [address] [address] [address] Scan Report Signed Patient: Jose Chamberlain Unit #: [id number] : 1950 Age/Sex: 70 / M ADM Date: 02/25/21 Loc: ER Room/Bed: Attending Dr: Ordering Provider/Ordering MD: Vargas Hall DO Date of Service: 02/25/21 Procedure(s): CT abdomen pelvis w con* [id number] Accession Number(s): [id number] Report Number: [id number] PROCEDURE INFORMATION: Exam: CT Abdomen And Pelvis With Contrast Exam date and time: 02/25/2021 5:46 PM Age: 70 years old Clinical indication: Abdominal pain; Generalized; Additional info: Constipation, abd cramping, frequent blood tx, n/v/d, hypotension, weakness. TECHNIQUE: Imaging protocol: Computed tomography of the abdomen and pelvis with contrast. Radiation optimization: All CT scans at this facility use at least one of these dose optimization techniques: automated exposure control; mA and/or kV adjustment per patient size (includes targeted exams where dose is matched to clinical indication); or iterative reconstruction. Contrast material: OMNI 300; Contrast volume: 75 ml; Contrast route: INTRAVENOUS (IV); COMPARISON: CR (CHEST, ) 02/25/2021 5:57 PM RADIATION DOSE METRICS: Total DLP (mGy-cm): 1068 FINDINGS: Lungs: Mild emphysematous lung changes. Liver: Normal. No mass. Gallbladder and bile ducts: Mild nonspecific gallbladder wall thickening. Negative for biliary system dilation. Cholelithiasis. Pancreas: Normal. No ductal dilation. Spleen: Splenomegaly. Splenic length at least 16 cm. Adrenal glands: Normal. No mass. Kidneys and ureters: Normal. No hydronephrosis. Stomach and bowel: Fairly extensive edematous wall thickening changes of the right colon. Mild wall thickening of the terminal ileum. Negative for small bowel obstruction. Negative for bowel perforation. Appendix: No evidence of appendicitis. Intraperitoneal space: Small volume scattered abdominopelvic free fluid. Diffuse mesenteric edema. Vasculature: Patent mesenteric vasculature. Scattered atherosclerosis. No acute vascular occlusion identified. Negative for aneurysm. Lymph nodes: Unremarkable. No enlarged lymph nodes. Urinary bladder: Unremarkable as visualized. Reproductive: Mild severity prostate gland enlargement. Bones/joints: Unremarkable. No acute fracture. Soft tissues: No active abdominopelvic bleeding. CT/CT abdomen pelvis w con* [id number] IMPRESSION: 1. Nonspecific wall thickening and edematous changes involving distal small bowel loops and the right colon. This could reflect a nonspecific enterocolitis pattern, or alternatively be related to the overall fluid status as there is generalized 3rd spacing of fluid. 2. Nonspecific moderate severity splenomegaly. 3. Cholelithiasis with mild nonspecific gallbladder wall thickening which could also be related to the underlying fluid status. Radiation Dose CTDIVOL = (mGy): DLP = 1068 (mGy-cm) Dictated By: Sebastian Evans Signed By: Sebastian Evans Signed Date/Time: 02/25/212112 CXR: Radiologist's impression: [address] [place] [address] XRay Report Signed Patient: Jose Chamberlain Unit #: [id number] : 1950 Age/Sex: 70 / M ADM Date: 02/25/21 Loc: ER Room/Bed: Attending Dr: Ordering Provider/Ordering MD: Vargas Hall DO Date of Service: 02/25/21 Procedure(s): XR chest 1V portable [id number] Accession Number(s): [id number] Report Number: [id number] PROCEDURE INFORMATION: Exam: XR Chest Exam date and time: 02/25/2021 5:46 PM Age: 70 years old Clinical indication: Cough and dyspnea; Smoker's cough; Additional info: Dyspnea/cough TECHNIQUE: Imaging protocol: XR of the chest. Views: 1 view. COMPARISON: CR Chest 2 views* [id number] 05/10/2019 12:35 PM FINDINGS: Lungs: Emphysematous lung changes. No airspace consolidation. No suspicious pulmonary lesion. Pleural spaces: Unremarkable. No pleural effusion. No pneumothorax. Heart/Mediastinum: Unremarkable. No cardiomegaly. Vasculature: Calcified plaques in the aortic arch. Bones/joints: Unremarkable. XR/XR chest 1V portable [id number] IMPRESSION: Negative for acute pulmonary disease or suspicious pulmonary lesion. Dictated By: Sebastian Evans Signed By: Sebastian Evans Signed Date/Time: 02/25/211824 DD/ 22 Critical Care Time Critical Care Time: Critical Care Time: Yes Total Critical Care Time: 35 Attestation: This case had a high probability of a clinically significant, sudden, or life threatening deterioration of this patient's condition which required my full and direct attention, intervention and personal management. Discharge Plan Discharge Patient Disposition: Admitted As Inpatient Admit Provider: Farideh Oswald Clinical Impression: Septic shock Anemia Qualifiers: Anemia type: bone marrow failure Bone marrow failure anemia type: other bone marrow failure Qualified Code(s): D61.89 - Other specified aplastic anemias and other bone marrow failure syndromes Condition: Stable Coding Level of Care Code ED Precipitate Washer for Chg Fwd Exam Comprehensive
[2021-02-25] MEDS: sodium chloride 0.9% 1,000 ML 999 ML IV ×2 (17:59→19:30)
[2021-02-25] MEDS: vancomycin 1,000 MG in sodium chloride 0.9% 250 ML 250 MG IV (18:47)
--- NOTE | 2021-02-25 19:09 | PC.NURSE ---
Pt care transferred to this nurse at 1909. Assessment not complete by prior assigned nurse
[2021-02-25] MEDS: piperacillin-tazobactam 3.375 GM in sodium chloride 0.9% (plus) 100 ML IV (19:50)
[2021-02-25 20:11] LABS: Basophils % 0.5 %; Hematocrit 21.3 % (42.0-52.0); Hemoglobin 7.1 g/dL (11.7-16.6); Lymphocytes # 0.9 10^3/uL (0.8-4.8); Lymphocytes % 42.5 %; Mean Corpuscular HGB Conc 33.3 g/dL (30.0-36.0); Mean Corpuscular Hemoglobin 30.7 pg (28.0-34.0); Mean Corpuscular Volume 92.2 fL (80-94); Monocytes # 0.1 10^3/uL (0.2-0.9); Monocytes % 6.5 %; Neutrophils # 0.99 10^3/uL (1.8-7.7); Neutrophils % 49.5 %; Nucleated Red Blood Cells % 0 %; Platelet Count 146 10^3/cmm (130-400); Red Blood Count 2.31 10^6/uL (4.1-5.3)
[2021-02-25 20:21] LABS: Alanine Aminotransferase 19 U/L (0-41); Albumin Level 3.4 g/dL (3.5-5.2); Alkaline Phosphatase 97 IU/L (40-130); Anion Gap 9.5 (5-19); Aspartate Amino Transferase 29 U/L (0-40); Blood Urea Nitrogen 6 mg/dL (8-23); Carbon Dioxide 29 mmol/L (22-29); Chloride 101 mmol/L (98-107); Globulin 1.7 g/dL (1.3-4.6); Glomerular Filtration Rate 133.2 mL/min (90-130); Glucose 85 mg/dL (65-115); Osmolality Calculated 279 mOsm/kg (285-295); Potassium 3.5 mmol/L (3.5-5.1); Sodium 136 mmol/L (136-145); Total Bilirubin 2.5 mg/dL (0.15-1.2); Total Protein 5.1 g/dL (6.6-8.7)
[2021-02-25 20:22] LABS: Lactic Sepsis W/Reflex 1.1 mmol/L (0.5-2.2)
[2021-02-25 20:25] LABS: Add Urine Microscopic? NO; Charge for UA Resulting for Rev
[2021-02-25 20:28] LABS: Bilirubin Urine 1+ (Negative); Blood Urine Neg (Negative); Glucose Urine UA Norm (Normal); Ketones Urine Negative (Negative); Leukocyte Esterase Urine Negative (Negative); Nitrate Urine Negative (Negative); Protein Urine Neg (Negative); Urine Appearance Clear (CLEAR); Urine Color Amber (Yellow); Urobilinogen Urine 4+ mg/dL (Negative); pH Urine 7 (5-7)
[2021-02-25 20:39] LABS: SARS Covid-2 Antigen Negative (Negative)
[2021-02-25] MEDS: acetaminophen 325 mg Tablet 650 MG PO (20:40)
[2021-02-25 20:52] LABS: Slide Review Slide Review Perform
[2021-02-25] MEDS: iohexol 300 mg/mL 100 mL Btl IV (20:56)
--- NOTE | 2021-02-25 22:18 | XRR_ITS ---
PROCEDURE INFORMATION: Exam: XR Chest Exam date and time: 02/25/2021 10:18 PM Age: 70 years old Clinical indication: Device placement; Other: Central line TECHNIQUE: Imaging protocol: XR of the chest. Views: 1 view. COMPARISON: CR (CHEST, ) 02/25/2021 5:57 PM FINDINGS: Tubes, catheters and devices: Right neck central venous catheter terminates distal superior vena cava. Lungs: Emphysematous lung changes. Coarsened increased interstitial lung markings bilaterally. No focal pulmonary consolidation. Pleural spaces: Unremarkable. No pleural effusion. No pneumothorax. Heart/Mediastinum: Unremarkable. No cardiomegaly. Bones/joints: Demineralized bones. No acute thoracic fractures. XR/XR chest 1V portable [id number] IMPRESSION: Satisfactory central venous catheter position without acute pulmonary complication.
[2021-02-26] VITALS (7 sets, daily range): BP systolic 94–116; BP diastolic 56–79; PULSE 66–72; RESP 17–22; TEMP 36.6–36.7; O2SAT 92–100
--- NOTE | 2021-02-26 05:44 | P.HP_ITS ---
Providers/Chief Complaint Admitting Physician: Farideh Oswald MD Chief Complaint: HYPOTENSION/SENT BY [place] History of Present Illness Jose Chamberlain is a 70 year old male with MDS with transfusion dependent anemia, poor ECOG scores, hemochromatosis, coronary artery disease, COPD, who presented to the ER yesterday afternoon after being [facility]. Systolic blood pressure at the time was ranging 73-80. He has a T-max of 99.7 Fahrenheit. At this time patient's chief complaint is that of fatigue, malaise, and asking specifically he states he has abdominal pain with some nausea however unable to elaborate on the same. He is uncertain as to why he is in the hospital, states that he would like to leave and follow-up with his primary care tomorrow morning. While remaining in the ER his blood pressure continued to be low systolic in the 80s range and was started on Levophed infusion, currently running at 8 mics an hour. Review of blood pressure readings from February 20, February 03, January 14 also show blood pressure ranging between 72-92 systolic. He denies any dizziness. He has a chronic cough related to his COPD, does not feel this is much changed. Review of systems positive for odynophagia, no mouth sores or rashes. Denies any dysuria. Denies any diarrhea. Diagnostics in the ER are notable with a white blood cell count of 2.0, which appears to be chronic dating back to at least 2019, neutropenia with ANC of 0.9, hemoglobin 7.1, normal lactate at 1.1,negative UA. Chest x-ray shows emphysematous lung changes, no focal pulmonary consolidation. CT of the abdomen and pelvis showed nonspecific wall thickening and edematous changes involving the distal sma ll bowel loops in the right colon, nonspecific enterocolitis pattern versus third spacing, nonspecific splenomegaly. Echo from 2019 with gr2 diastolic dysfunction, LVEF 70% His medication list is not currently entered, per review of last oncology notes it appears patient is on aspirin 81, Coreg 6.25 daily, gabapentin 300 mg 3 times daily, hydrocodone acetaminophen every 4 hours as needed, prednisone 10 mg daily, simvastatin 40 mg daily, Proventil 1 puff as needed. Review of Systems General: Reports: 10 or more systems reviewed and unremarkable except in HPI and below Const: Denies: fever(s), chills or body aches Eyes: Denies: change in vision, blurry vision or photophobia ENMT: Reports: hoarseness; Denies: throat pain, enlarged tonsils, odynophagia or nasal congestion Card: Denies: chest pain, palpitations, irregular heart rhythm, edema, swelling of feet/ankles, lightheadedness, pre-syncope, dyspnea on exertion or orthopnea Resp: Denies: dyspnea, productive cough, non-productive cough, wheezing, stridor, pain on inspiration, change in phlegm color, hemoptysis or chest congestion GI: Denies: abdominal pain, nausea, vomiting, hematemesis, coffee ground emesis, dysphagia, heartburn, diarrhea, constipation, GI cramping, change in stool character, hematochezia or melena : Denies: flank pain, dysuria, urinary frequency, urinary urgency, urinary hesitancy or hematuria Musc: Denies: neck pain, back pain, extremity pain, joint swelling, joint warmth or deformity Neuro: Denies: headache(s), numbness in extremities, weakness in extremities, sensory changes, difficulty walking, frequent falls, dizziness, vertigo, beh avioral changes, Slurred speech present or seizure-like activity Psych: Denies: anxiety, depression, suicidal ideation or homicidal ideation Endo: Denies: polyuria, polydipsia, tired all the time, cold intolerance or hot flashes Gaurav/Lymph: Denies: easy bruising or easy bleeding Medications/Allergies Home Medications Medication Instructions Recorded Confirmed Last Taken Type No Known Home Medications 01/21/21 02/25/21 Unknown History Allergies Allergy/AdvReac Type Severity Reaction Status Date / Time No Known Allergies Allergy Verified 01/21/21 11:19 PFSH Acute PFSH: Medical History (Updated 02/26/21 @ 06:09 by Farideh Oswald MD) Anemia CAD (coronary artery disease) COPD (chronic obstructive pulmonary disease) Diastolic CHF Hemochromatosis MDS (myelodysplastic syndrome) Neutropenia Social History (Updated 02/25/21 @ 16:12 by Allen Crandall RN) Smoking and tobacco status: current every day smoker cigarettes Packs smoked per day: 1 Alcohol intake: never Vitals/I&O/Wt Last Vital Signs Temp 97.8 F 02/26/21 00:59 Pulse 72 02/26/21 03:42 Resp 18 02/26/21 03:42 BP 116/79 02/26/21 03:42 Pulse Ox 92 02/26/21 03:42 02/25/21 02/25/21 02/26/21 14:59 22:59 06:59 Intake Total 2350 / 2350 0 / 2350 Balance 2350 / 2350 0 / 2350 Weight last 48 hrs Weight 56.699 kg Physical Exam Narrative: EXAM NARRATIVE: General:awake, alert and oriented, No acute distress, chronically ill appearing frail man HEENT: PERRLA, pupils bilaterally equal and reactive, pallors not present Chest: Normal vesicular breath sounds, no added sounds, equal good air entry bilaterally CVS: S1-S2 regular, no murmurs, no tachycardia, no gallops, no rubs Abdomen: Soft, nontender, no organomegaly, bowel sounds present Neuro: No focal deficits, no facial deformity, AO x3, power 5/5 in all limbs Extremities: no clubbing, cyanosis, mild 1+ pitting edema Data : 02/25/21 19:46 02/25/21 19:46 Micro: Microbiology 02/25/21 18:25 Blood Culture - Preliminary Blood SPECIMEN COLLECTED 02/25/21 18:50 Blood Culture - Preliminary Blood SPECIMEN COLLECTED A&P Assessment and plan (1) Hypotension: Patient presented to the ER with blood pressure systolic range of 70s. Per review of prior blood pressure on recent occasions, his blood pressure appears to range between 77-92 systolic. I am uncertain if these were charted on his outpatient visits at the infusion center. Given that patient is neutropenic, and possible enterocolitis noted on CT, sepsis cannot be excluded as the underlying cause of hypotension at this time. He has been empirically started on piperacillin tazobactam and vancomycin which we will continue while undergoing sepsis evaluation. Blood cultures have been taken and sent. UA without signs of UTI. Chest x-ray without gross consolidation. CT as noted above with possible enterocolitis versus third spacing. Patient does report some degree of abdominal pain today. Check procalcitonin. Start midodrine 10 mg p.o. 3 times daily and attempt to titrate down Levophed. Hold Coreg for now while on Levophed. Check random cortisol given that patient has been on longstanding steroids prednisone 10 mg p.o. daily. He reports compliance. Check TSH. COVID-19 antigen negative, PCR remains pending at this time. IV fluids normal saline at 75 cc an hour to continue for now. Last echocardiogram from 2019 with grade 2 diastolic dysfunction, will need to monitor closely for any CHF exacerbation. Status: Acute Qualifiers: Hypotension type: unspecified hypotension type Qualified Code(s): I95.9 - Hypotension, unspecified (2) MDS (myelodysplastic syndrome): With chronic anemia, leukopenia Status: Acute (3) Neutropenia: WBC count close to known baseline Status: Acute Qualifiers: Neutropenia type: other Qualified Code(s): D70.8 - Other neutropenia (4) Anemia: Hemoglobin 7.1 today, which may be contributing to generalized feeling of malaise and lethargy. Transfuse 1 units of packed red blood cells today Status: Acute Qualifiers: Anemia type: bone marrow failure Bone marrow failure anemia type: other bone marrow failure Qualified Code(s): D61.89 - Other specified aplastic anemias and other bone marrow failure syndromes (5) COPD (chronic obstructive pulmonary disease): Not currently exacerbated Status: Acute Qualifiers: COPD type: unspecified COPD Qualified Code(s): J44.9 - Chronic obstructive pulmonary disease, unspecified Additional A&P Information DVT prophylaxis: Lovenox Attestations Medical Necessity Statement*: Anticipate greater than 2 midnight admission for above defined care Critical Care Time: The high probability of a clinically significant, sudden or life threatening deterioration of the patient's [circulatory, hematological] system(s) required my full and direct attention, intervention and personal management. The critical care time is as shown. This time is in addition to time spent performing any reported procedures but includes the following: [x] Data and vital sign review and interpretation [x] Patient assessment, examination and intervention [x] Documentation [x] Medication orders and management Critical Care Time (min): 45 Coding Level of Care Code Acute [facility] for [facility] Fwd Diagnoses Hypotension I95.9 Hypotension type: unspecified hypotension type MDS (myelodysplastic syndrome) D46.9 Neutropenia D70.8 Neutropenia type: other Anemia D61.89 Anemia type: bone marrow failure Bone marrow failure anemia type: other bone marrow failure COPD (chronic obstructive pulmonary disease) J44.9 COPD type: unspecified COPD
[2021-02-26] MEDS: sodium chloride 0.9% 1,000 ML 50 ML IV (06:42)
[2021-02-26] MEDS: enoxaparin 40 mg/0.4 mL Syringe SUBCUT (06:42)
[2021-02-26 07:12] LABS: Cortisol Random 7.16 ug/dL (2.47-19.5); Procalcitonin 0.22 ng/mL (0-0.5); Thyroid Stimulating Hormone 0.84 uIU/mL (0.27-4.20)
[2021-02-26] MEDS: piperacillin-tazobactam 3.375 GM in sodium chloride 0.9% (plus) 100 ML IV (08:22)
[2021-02-26 14:30] LABS: Coronavirus Test Green County Not Detected
--- NOTE | 2021-02-27 11:08 | PC.PT ---
PT note; call the ER to find patient, ER states patient has been discharged to [facility], unable to find patient anywhere and our system at this time, discharge physical therapy order until new orders are received.
--- NOTE | 2021-03-02 13:08 | P.DS_ITS ---
Discharge Providers Date of Admission: 02/26/21 04:28 Date of Discharge: March 02, 2021 Attending Provider at Admission: Farideh Oswald MD Attending Provider at Discharge: Pedro Castro MD Diagnoses at Discharge Discharge Diagnosis (1) Hypotension: Status: Acute Qualifiers: Hypotension type: unspecified hypotension type Qualified Code(s): I95.9 - Hypotension, unspecified (2) MDS (myelodysplastic syndrome): Status: Acute (3) Neutropenia: Status: Acute Qualifiers: Neutropenia type: other Qualified Code(s): D70.8 - Other neutropenia (4) Anemia: Status: Acute Qualifiers: Anemia type: bone marrow failure Bone marrow failure anemia type: other bone marrow failure Qualified Code(s): D61.89 - Other specified aplastic anemias and other bone marrow failure syndromes (5) COPD (chronic obstructive pulmonary disease): Status: Acute Qualifiers: COPD type: unspecified COPD Qualified Code(s): J44.9 - Chronic obstructive pulmonary disease, unspecified Reason for Visit 2 Reason for Visit: HYPOTENSION/SENT BY [place] Hospital Course Hospital Course Jose Chamberlain is a 70 year old male with MDS with transfusion dependent anemia, poor ECOG scores, hemochromatosis, coronary artery disease, COPD, who presented to the ER yesterday afternoon after being sent in from [place] for hypotension. Systolic blood pressure at the time was ranging 73-80. He has a T-max of 99.7 Fahrenheit. At this time patient's chief complaint is that of fatigue, malaise, and asking specifically he states he has abdominal pain with some nausea however unable to elaborate on the same. He is uncertain as to why he is in the hospital, states that he would like to leave and follow-up with his primary care tomorrow morning. While remaining in the ER his blood pressure continued to be low systolic in the 80s range and was started on Levophed infusion, currently running at 8 mics an hour. Review of blood pressure readings from February 20, February 03, January 14 also show blood pressure ranging between 72-92 systolic. He denies any dizziness. He has a chronic cough related to his COPD, does not feel this is much changed. Review of systems positive for odynophagia, no mouth sores or rashes. Denies any dysuria. Denies any diarrhea. Diagnostics in the ER are notable with a white blood cell count of 2.0, which appears to be chronic dating back to at least 2019, neutropenia with ANC of 0.9, hemoglobin 7.1, normal lactate at 1.1,negative UA. Chest x-ray shows emphysematous lung changes, no focal pulmonary consolidation. CT of the abdomen and pelvis showed nonspecific wall thickening and edematous changes involving the distal sma ll bowel loops in the right colon, nonspecific enterocolitis pattern versus third spacing, nonspecific splenomegaly. Echo from 2019 with gr2 diastolic dysfunction, LVEF 70% His medication list is not currently entered, per review of last oncology notes it appears patient is on aspirin 81, Coreg 6.25 daily, gabapentin 300 mg 3 times daily, hydrocodone acetaminophen every 4 hours as needed, prednisone 10 mg daily, simvastatin 40 mg daily, Proventil 1 puff as needed. Plan: (1) Hypotension: Patient presented to the ER with blood pressure systolic range of 70s. Per review of prior blood pressure on recent occasions, his blood pressure appears to range between 77-92 systolic. I am uncertain if these were charted on his outpatient visits at the infusion center. Given that patient is neutropenic, and possible enterocolitis noted on CT, sepsis cannot be excluded as the underlying cause of hypotension at this time. He has been empirically started on piperacillin tazobactam and vancomycin which we will continue while undergoing sepsis evaluation. Blood cultures have been taken and sent. UA without signs of UTI. Chest x-ray without gross consolidation. CT as noted above with possible enterocolitis versus third spacing. Patient does report some degree of abdominal pain today. Check procalcitonin. Start midodrine 10 mg p.o. 3 times daily and attempt to titrate down Levophed. Hold Coreg for now while on Levophed. Check random cortisol given that patient has been on longstanding steroids prednisone 10 mg p.o. daily. He reports compliance. Check TSH. COVID-19 antigen negative, PCR remains pending at this time. IV fluids normal saline at 75 cc an hour to continue for now. Last echocardiogram from 2019 with grade 2 diastolic dysfunction, will need to monitor closely for any CHF exacerbation. I did not see this patient. they became unstable and were transferred out of the ER above note was from admitting provider Discharge Data Data Completed and Pending: Completed Studies During Hospitalization Category Date Time Status CT abdomen pelvis w con* [id number] Stat Cat Scan 02/25/21 17:46 Completed XR chest 1V edmund ble [id number] Stat Exams 02/25/21 17:46 Completed XR chest 1V edmund ble [id number] Stat Exams 02/25/21 22:18 Completed Pending at discharge Category Date Time Status Blood Culture Sta t Lab 02/25/21 18:25 Results IRRAD CMV Neg Priti koreduced RBC Stat Lab 02/25/21 21:27 Results Irradiated Leuko Red RBC Stat Lab 02/25/21 21:27 Results Leukocyte Reduced RBC Stat Lab 02/25/21 21:27 Results Type and Screen S tat Lab 02/25/21 21:27 Results Vitals: Last Vital Signs Temp 98.0 F 02/26/21 09:57 Pulse 72 02/26/21 09:57 Resp 21 H 02/26/21 09:57 BP 102/60 02/26/21 09:57 Pulse Ox 100 02/26/21 08:00 Discharge Plan Discharge Patient Disposition: Xfer Other Condition: Stable Prescriptions: No Action No Known Home Medications RF: 0 Discharge Orders: Discharge Order (Routine); Ordered 03/02/21 Ordered By: Pedro Castro Discharge Attestations Time Spent in Discharge Care*: less than 30 min Quality Metrics Clinical Quality Measures During this hospital stay, did patient experience: None Coding Level of Care Code Acute [facility] note Diagnoses Hypotension I95.9 Hypotension type: unspecified hypotension type MDS (myelodysplastic syndrome) D46.9 Neutropenia D70.8 Neutropenia type: other Anemia D61.89 Anemia type: bone marrow failure Bone marrow failure anemia type: other bone marrow failure COPD (chronic obstructive pulmonary disease) J44.9 COPD type: unspecified COPD
--- NOTE | 2021-03-02 19:01 | PC.RESP ---
SMOKING CESSATION AND PULMONARY REHAB INFORMATION SENT TO PATIENT.
== END 2021-02-26 10:00 | disposition short-term general hospital (02) | DRG 811 ==
LOC: ER 23:36 → ER IP 02-26 04:29
PROVIDERS: Family Medicine; Admitting Provider Student in an Organized Health Care Education/Training Program; Emergency Provider Emergency Medicine; Visit Provider Internal Medicine
DX: D46.9 Myelodysplastic syndrome, unspecified (principal); D61.89 Other specified aplastic anemias and other bone marrow failure syndromes; I50.30 Unspecified diastolic (congestive) heart failure; E83.119 Hemochromatosis, unspecified; I25.10 Atherosclerotic heart disease of native coronary artery without angina pectoris; J44.9 Chronic obstructive pulmonary disease, unspecified; I95.9 Hypotension, unspecified; R16.1 Splenomegaly, not elsewhere classified; F17.210 Nicotine dependence, cigarettes, uncomplicated; D70.8 Other neutropenia; K52.9 Noninfective gastroenteritis and colitis, unspecified
CPT/HCPCS: 36430; 71045; 74177; 80053; 81003; 82533; 83605; 84145; 84443; 85025; 86850; 86900; 86920; 87040; 87205; 87426; 87635; 93005; 96365; 96367; 96368; 96372; 99291; 99292; C1751; J1650; J2543; J3370; J7030; J7050; P9040; Q9967